=== PATIENT | female | born 1950 | race Caucasian/White ===

== ENCOUNTER 2020-01-18 08:15 | Outpatient (CLI) | payer OTHER, SELFPAY ==
--- NOTE | ~2020-01-18 | MM_ITS ---
EXAMINATION: MM screening armen BI w nidhi HISTORY: Screening TECHNIQUE: Craniocaudal and mediolateral oblique 3-D tomosynthesis images were obtained and synthetic 2-D images were generated. CAD analysis was submitted and interpreted. COMPARISON: Comparison to multiple prior studies sequentially, with oldest reviewed study dated 12/18. BREAST PARENCHYMAL COMPOSITION: There are scattered areas of fibroglandular density. FINDINGS: There is no evidence of suspicious mass, calcification, or architectural distortion to sugg est malignancy in either breast. There has been no suspicious interval change. IMPRESSION: 1. No mammographic evidence of malignancy. 2. Recommend routine screening mammography in one year. BI-RADS Category 1: Negative Reviewed, dictated and finalized at location A. YARD SUPERVISOR
== END 2020-01-18 08:16 | disposition home or self-care (01) ==
LOC: ANHIMG 08:20
PROVIDERS: PCP Emergency Medicine; Visit Provider Nurse Practitioner
DX: Z12.31 Encounter for screening mammogram for malignant neoplasm of breast (principal)
CPT/HCPCS: 77063; 77067

== ENCOUNTER 2021-01-27 16:03 | Outpatient (CLI) | payer OTHER, SELFPAY ==
--- NOTE | ~2021-01-27 | MM_ITS ---
EXAMINATION: MM screening armen BI w nidhi HISTORY: Screening mammogram TECHNIQUE: Craniocaudal and mediolateral oblique 3-D tomosynthesis images were obtained and synthetic 2-D images were generated. CAD analysis was submitted and interpreted. COMPARISON: 01/18/2020, 01/15/2019, 01/09/2018 bilateral screening mammogram examinations BREAST PARENCHYMAL COMPOSITION: There are scattered areas of fibroglandular density. FINDINGS: There are scattered bilateral benign calcifications. There is no evidence of suspicious mas s, calcification, or architectural distortion to suggest malignancy in either breast. There has been no suspicious interval change. IMPRESSION: 1. No mammographic evidence of malignancy. 2. Recommend routine screening mammography in one year. BI-RADS Category 2: Benign finding(s). Reviewed, dictated and finalized at location A. [employer]OR [employer] C[employer]ER SERVICE
== END 2021-01-27 16:04 | disposition home or self-care (01) ==
LOC: ANHIMG 16:04
PROVIDERS: PCP Emergency Medicine; Visit Provider Obstetrics & Gynecology Gynecology
DX: Z12.31 Encounter for screening mammogram for malignant neoplasm of breast (principal)
CPT/HCPCS: 77063; 77067

== ENCOUNTER → 2021-04-01 14:42 | Outpatient (CLI) | payer OTHER, SELFPAY ==
--- NOTE | ~2021-04-01 | DEXA_ITS ---
Bone Density Report Name: SEFERINO BE Age: 70 Sex: Female Ethnicity: White Date of : 1950 Indication: postmenopausal osteoporosis; monitoring treatment; parental hip fracture; Referring Provider: Brendon, Wanda Study: Bone densitometry was performed. Exam Date: April 01, 2021 Accession number: [id number] Bone Density: Region BMD T-score Z-score Classification AP Spine (L1-L4) 1.014 -0.3 1.9 Normal Femoral Neck (Left) 0.626 -2.0 -0.1 Osteopenia Total Hip (Left) 0.699 -2.0 -0.4 Osteopenia Femoral Neck (Right) 0.609 -2.2 -0.2 Osteopenia Total Hip (Right) 0.636 -2.5 -0.9 Osteoporosis Total Hip Mean 0.668 -2.3 -0.7 Osteopenia World Health Organization criteria for BMD impression classify patients as: Normal (T-score at or above -1.0), Osteopenia (T-score between -1.0 and -2.5), or Osteoporosis (T-score at or below -2.5). 10-year Fracture Risk: FRAX not reported because: Some T-score for Spine Total or Hip Total or Femoral Neck at or below -2.5 Treated for osteoporosis Previous Exams: Region Exam Age BMD T-score BMD Change BMD Change Date g/cm2 vs Baseline vs Previous AP Spine(L1-L4) 04/01/2021 70 1.014 -0.3 -0.035* 0.020 03/26/2019 68 0.994 -0.5 -0.055* 0.029* 02/14/2017 66 0.964 -0.8 -0.084* -0.036* 08/04/2014 63 1.001 -0.4 -0.048* -0.040* 01/28/2013 62 1.041 -0.1 -0.008 -0.025* 05/19/2008 57 1.066 0.2 0.017 0.050* 12/27/2006 56 1.016 -0.3 -0.033* -0.033* 12/26/2005 55 1.049 0.0 Total Hip(Left) 04/01/2021 70 0.699 -2.0 -0.238* -0.006 03/26/2019 68 0.705 -1.9 -0.232* -0.108* 02/14/2017 66 0.813 -1.1 -0.124* 0.084* 08/04/2014 63 0.730 -1.7 -0.208* -0.023 01/28/2013 62 0.753 -1.6 -0.185* -0.075* 05/19/2008 57 0.828 -0.9 -0.109* -0.056* 12/27/2006 56 0.884 -0.5 -0.053* -0.053* 12/26/2005 55 0.938 0.0 Total Hip(Right) 04/01/2021 70 0.636 -2.5 -0.153* 0.017 03/26/2019 68 0.619 -2.7 -0.170* -0.031* 02/14/2017 66 0.650 -2.4 -0.139* -0.109* 08/04/2014 63 0.758 -1.5 -0.030* -0.010 01/28/2013 62 0.769 -1.4 -0.020 -0.061* 05/19/2008 57 0.830 -0.9 0.042* -0.017 12/27/2006 56 0.847 -0.8 0.058* 0.058* 12/26/2005 55 0.788 -1.3
== END ==
PROVIDERS: PCP Emergency Medicine; Visit Provider Nurse Practitioner
DX: Z78.0 Asymptomatic menopausal state (principal); M85.89 Other specified disorders of bone density and structure, multiple sites; M81.0 Age-related osteoporosis without current pathological fracture
CPT/HCPCS: 77080

== ENCOUNTER 2021-08-27 11:00 | Inpatient (IN) | payer OTHER, SELFPAY ==
[2021-08-27] VITALS (8 sets, daily range): BP systolic 105–139; BP diastolic 52–76; PULSE 90–115; RESP 14–30; TEMP 36.2–36.8; O2SAT 96–100; BMI 19.5
--- NOTE | ~2021-08-27 | CT_ITS ---
EXAMINATION: CTA chest PE protocol DATE: 08/27/2021 14:58 INDICATION: Shortness of breath. Redness and swelling of left lower leg. TECHNIQUE: Computed tomography angiography (CTA) of the chest was performed with 100 mL Omnipaque-350 intravenous contrast timed to evaluate the pulmonary arteries. Coronal maximum intensity projection 3D-reconstructions were created by the technologist. Automated exposure control and iterative reconst ruction technique were employed. Exam dose: 163.74 mGy-cm total exam DLP. COMPARISON: None. FINDINGS: There are is extensive bilateral pulmonary embolism with bilateral upper lobe, middle lobe and bilateral lower lobe emboli. Saddle embolus on the right. There is atelectasis of right ventricular strain. Normal heart size. Trace pericardial fluid. No pleural effusion. No thoracic aortic aneurysm or dissection. There is aortic and coronary and great vessel calcificatio n. No hilar or mediastinal mass lesion or lymphadenopathy. Numerous small stones are noted in the dependent gallbladder. There is noted to terminate approximately 1.3 cm hypoattenuating lesion of the dome of the liver. Mil d to moderate bilateral hydronephrosis and/or parapelvic cysts are noted. The kidneys are only partia lly included. Normal morphology of the adrenal glands. No suspicious osteolytic or osteoblastic lesions are noted. IMPRESSION: Extensive bilateral pulmonary emboli with evidence of right ventricular strain Cholelithiasis Indeterminate 1.3 cm hypoattenuating lesion of the hepatic dome Reviewed, dictated and finalized at Location A. Reviewed, dictated and finalized at location A. IMPRESSION: Extensive bilateral pulmonary emboli with evidence of right ventri cular strain Cholelithiasis Indeterminate 1.3 cm hypoattenuating lesion of the hepatic dome
--- NOTE | ~2021-08-27 | XR_ITS ---
EXAMINATION: XR chest 2V DATE: 08/27/2021 12:57 INDICATION: Shortness of breath. Left leg swelling and redness. TECHNIQUE: Frontal and lateral views of the chest were obtained. COMPARISON: Chest 2 views 05/17/2007 FINDINGS: A calcified right lung nodule is consistent with old granulomatous disease. No pleural effu jhon or pneumothorax. The heart size is normal. IMPRESSION: 1. No acute cardiopulmonary disease. Reviewed, dictated and finalized at location A.
--- NOTE | ~2021-08-27 | US_ITS ---
EXAMINATION:US venous doppler LE LT INDICATION:Left leg swelling TECHNIQUE: Multiple grayscale, color flow and Doppler images of the left lower extremity deep venous systems were obtained and reviewed. COMPARISON:No prior studies for comparison. FINDINGS: There is extensive deep venous thrombosis throughout the left lower extremity veins involvi ng the femoral, popliteal, posterior tibial, peroneal and gastrocnemius veins. IMPRESSION: 1: Diffuse deep venous thrombosis throughout the left lower extremity veins. Reviewed, dictated and finalized at location B.
--- NOTE | ~2021-08-27 | MR_ITS ---
EXAMINATION: MR abdomen wo/w con DATE: 08/30/2021 16:58 INDICATION: Liver mass. TECHNIQUE: Magnetic resonance imaging (MRI) of the abdomen was performed without and with 10 mL Multi [place] intravenous contrast. COMPARISON: Chest CT 08/27/2021 FINDINGS: There are 2 cysts in the liver with the larger measuring 13 mm. There are gallstones in the gallbladd er, which is normal in size. The spleen is normal. There are multiple cystic lesions in the pancreas measuring up to 4 mm, some of which communicate with the main pancreatic duct. The adrenal glands are normal. There are cysts in the kidneys measuring up to 2.1 cm on the left. There are no dilated loop s of bowel. There are no pathologically enlarged lymph nodes. There is no free intraperitoneal fluid. IMPRESSION: 1. Benign cysts in the liver. 2. Cystic lesions in the pancreas measuring up to 4 mm. The differential diagnosis includes pseudocys t, intraductal papillary mucinous neoplasm (IPMN), mucinous cystic neoplasm (MCN), serous cystadenoma , and neuroendocrine tumor. Abdomen MRI without and with contrast is recommended in 2 years. 3. Cholelithiasis. No evidence of acute cholecystitis. Reviewed, dictated and finalized at location B. IMPRESSION: 1. Benign cysts in the liver. 2. Cystic lesions in the pancreas measuring up to 4 mm. The differential diagno sis includes pseudocyst, intraductal papillary mucinous neoplasm (IPMN), mucino us cystic neoplasm (MCN), serous cystadenoma, and neuroendocrine tumor. Abdomen MRI without and with contrast is recommended in 2 years. 3. Cholelithiasis. No evidence of acute cholecystitis.
[2021-08-27 11:38] LABS: Glucose Point of Care 234 mg/dl (65-105)
--- NOTE | 2021-08-27 12:48 | PC.NURSE ---
pt. has two pluse pulses in L lower extremity
--- NOTE | 2021-08-27 13:00 | ED.GENADULT ---
HPI - General Adult General Chief complaint: Recheck/Abnormal Lab/Rx Stated complaint: High blood sugar, L leg swollen Time Seen by Provider: 08/27/21 12:35 History of Present Illness HPI narrative: Patient is a 70-year-old female who presents ER with left lower extremity swelling. Noticed it worsening over the last 2 days. Reports she bumped her ankle on a door 1 week ago but she thought nothing of it. Small break in the skin. No erythema or warmth or drainage. No fevers or chills or sweats. No calf cramping. Denies chest pain. Patient does report she has been having exertional dyspnea over the last 3 days as well. No crushing chest pain. No pain with deep breath. No history of PE or DVT. Patient reports yesterday blood sugar was as high as 300 which is atypical for her. She was able to bring her sugar down by drinking water. Related Data Home Medications Medication Instructions Recorded Confirmed aspirin 81 mg tablet,delayed 81 mg PO DAILY 04/08/19 05/18/21 release cholecalciferol (vitamin D3) 50 2,000 unit PO DAILY 04/08/19 05/18/21 mcg (2,000 unit) capsule Allergies Allergy/AdvReac Type Severity Reaction Status Date / Time No Known Allergies Allergy Verified 08/17/21 11:21 Review of Systems Review of Systems: All systems reviewed & are unremarkable except as noted in HPI and below Constitutional: Constitutional: Denies chills, Reports fatigue, Denies fever(s) and Reports weakness ENT: Denies nasal congestion and Denies sore throat Cardiovascular: Cardiovascular: Denies chest pain, Denies rapid heart rate and Denies radiating jaw, neck or arm pain Respiratory: Respiratory: Denies cough, Reports dyspnea and Denies wheezing Gastrointestinal: Gastrointestinal: Denies abdominal pain, Denies nausea and Denies vomiting Musculoskeletal: Musculoskeletal: Denies arthralgias, Denies joint swelling and Denies muscle cramps Comments: Left lower extremity swelling Neurologic: Denies focal weakness and Denies numbness PMFSH Past Medical History Medical History (Updated 08/27/21 @ 17:06 by Cheo Ramesh MD) Dyslipidemia Hypertension Osteopenia of multiple sites Type 2 diabetes mellitus Vitamin D deficiency Surgical History Surgical History (Updated 08/27/21 @ 15:39 by Nat G. Gerling, PA-C) History of left breast biopsy Microcalcifications on mammogram. Breast biopsy benign, per patient report. History of toe surgery Repair of left 5th toe fracture. Family History Family History Mother Family history of diabetes mellitus in first degree relative Family history of cardiovascular disease Sibling Family history of cardiovascular disease Father Family history of lung cancer, Onset Age: 67 Social History Social History (Updated 08/27/21 @ 15:42 by Nat Martin PA-C) Social History: Surrogate decision maker: Felicitas Vargasan (daughter) or Sydney Hayes (granddaughter). Code status: Full code. Smoking status: Current every day smoker Alcohol intake: never Substance use: never Additional living arrangements comments: x 3 years. Granddaughter lives with her. Additional occupation/education comments: Works 3 days a week at [employer]. Exam Narrative: GENERAL: Well-appearing, well-nourished, and in no acute distress. HEAD: Normocephalic, atraumatic. EYES: PERRL and EOMI. CHEST: Clear to auscultation. No respiratory distress. HEART: Tachycardic and regular.. Normal peripheral pulses. ABDOMEN: Soft, nontender, nondistended. EXTREMITIES: Normal range of motion. Left lower extremity significantly enlarged compared to the right lower extremity and has some purplish discoloration. Normal dorsalis pedis and posterior tibial pulses in the left lower extremity. SKIN: Warm, dry, no rash. Small break in skin near the lateral malleolus of the ankle without tenderness or evidence of cellu
[2021-08-27 14:06] LABS: Basophils Absolute Auto 0.1 K/mm3 (0.0-0.1); Basophils Percent Auto 0.5 % (0.2-1.2); Eosinophils Absolute Auto 0.1 K/mm3 (0-0.3); Eosinophils Percent Auto 1.3 % (0-4.4); Hematocrit 37.5 % (37.0-47.0); Hemoglobin 11.8 g/dL (12.0-15.0); Immature Granulocyte Absolute 0.14 K/mm3 (0.00-0.031); Immature Granulocyte Percent A 1.3 % (0-0.5); Lymphocytes Absolute Auto 1.07 K/mm3 (0.9-3.2); Lymphocytes Percent Auto 9.7 % (18.3-44.2); Mean Corpuscular HGB Conc 31.5 g/dl (32-36); Mean Corpuscular Hemoglobin 33.7 pg (26-34); Mean Corpuscular Volume 107.1 fl (80-100); Mean Platelet Volume 12.9 fl (7.4-10.4); Neutrophils Absolute Auto 8.7 K/mm3 (1.3-6.7); Neutrophils Percent Auto 78.2 % (45.5-73.1); Platelet Count Result 170 k/mm3 (150-375); Red Cell Distribution Width 14.6 % (11.5-14.5); White Blood Count 11.1 K/mm3 (4.5-10.0)
[2021-08-27 14:14] LABS: INR 1.2; Prothrombin Time 14.7 Seconds (11.1-14.7)
[2021-08-27 14:15] LABS: Partial Thromboplastin Time 41.6 SECONDS (22.3-36.8)
[2021-08-27 14:17] LABS: Alanine Aminotransferase 10 U/L (6-35); Albumin Level 4.5 g/dL (3.5-5.1); Alkaline Phosphatase 84 U/L (38-126); Anion Gap 17 mmol/L (8-16); Aspartate Amino Transferase 13 U/L (14-36); Bilirubin,Total 0.9 mg/dL (0.2-1.3); Blood Urea Nitrogen 30 mg/dL (7-17); Calcium 9.6 mg/dL (8.4-10.2); Carbon Dioxide 14 mmol/L (22-30); Chloride 103 mmol/L (98-107); Estimated CRCL calculation 39 ml/min; Estimated Glomerular Filt Rate > 60; Glucose 261 mg/dL (65-110); Potassium 5.2 mmol/L (3.4-5.0); Sodium 134 mmol/L (137-145)
[2021-08-27] MEDS: HEPARIN SOD/D5W 100 UNITS/ML 25,000 UNITS/250 ML BAG 9 UNITS IV CONT (14:25)
[2021-08-27] MEDS: HEPARIN SODIUM 5,000 UNITS/ML VIAL 4000 UNITS IV PUSH (14:27)
[2021-08-27 14:40] LABS: NT Pro B Type Natriuretic Pept 5800 pg/mL (5-100); Troponin I 0.241 ng/mL (0.000-0.034)
--- NOTE | 2021-08-27 15:00 | PM.IMHP ---
H&P: HPI History of Present Illness Date/Time: 08/27/21 15:00 Chief Complaint: Leg swelling, dizziness, shortness of breath. Narrative: This is a very pleasant 70-year-old female smoker with type 2 diabetes and hyperlipidemia who presented to the emergency department from home for evaluation of leg swelling, dizziness, and shortness of breath. Her chronic medical conditions are well controlled and she is otherwise very healthy. She still works 3 days a week and is very active. Two days ago while leaving work she got a bit short of breath when walking to her car which is unusual for her. Since that time she has continued to experience dyspnea on exertion and yesterday she felt dizzy after walking up the basement stairs and in fact she fell when entering the kitchen from the basement stairs, luckily not injuring herself. Yesterday she also noticed that her left leg seemed to be swollen and this morning her granddaughter convinced her to come in for evaluation given increasing swelling in that leg. Venous Doppler ultrasound of the left leg showed an extensive DVT and a subsequent chest CTA showed extensive bilateral pulmonary embolism in all lobes with a subtle embolus on the right and some evidence of right ventricular strain. At the time my evaluation she appears in no respiratory distress and her vital signs are stable aside from tachycardia with a rate of around 113. SpO2 is currently 100% on room air. The patient was initially reluctant to stay in the hospital but after lengthy discussion she has decided that she is okay with admission. We did discuss the possibility of transfer to a tertiary care center for consultation with Interventional Radiology to see if she may be a candidate for thrombectomy or catheter guided tPA however she declined that at this time and she would prefer to stay here. She has no prior history of blood clots and she denies recent travel and surgery. In fact she is very active as detailed above. She has no known history of malignancy. She is up-to-date on her mammograms and colonoscopy. Her weight has remained stable; she has always been quite thin. Currently she has no complaints and denies syncope, headache, chest pain, pleuritic pain, palpitations, nausea, vomiting, sweats and numbness/paresthesias of the left leg. Review of Systems Review of Systems: Twelve systems were reviewed. No recent cold or flu symptoms. She is up-to-date on vaccinations and has not had any recent vaccinations. No history of cardiopulmonary disease. Appetite has been okay. No nausea, vomiting, or diarrhea. She has not noticed any lymph node swelling. No hematuria. No issues with constipation. Glucose is typically well controlled and she was apprised that her random glucose today was over 200. No blurry vision, polydipsia, or polyuria. Except as documented, all other systems were reviewed and are negative. [facility] Past Medical History Medical History Dyslipidemia Hypertension Osteopenia of multiple sites Type 2 diabetes mellitus Vitamin D deficiency Surgical History Surgical History History of left breast biopsy Microcalcifications on mammogram. Breast biopsy benign, per patient report. History of toe surgery Repair of left 5th toe fracture. Family History Family History (Updated 08/27/21 @ 20:22 by Nat Martin PA-C) Mother Family history of cardiovascular disease Family history of diabetes mellitus in first degree relative Hx of CABG Sibling Family history of cardiovascular disease Pulmonary embolism Father Family history of lung cancer, Onset Age: 67 Social History Social History Social History: Surrogate decision maker: Felicitas Ahmadi (daughter) or Sydney Hayes (granddaughter). Code status: Full code. Years smoked: 20 Smok
--- NOTE | 2021-08-27 15:33 | ECG_ITS ---
Measurements Intervals [place] Rate: 110 P: 63 OR: 148 QRS: 72 QRSD: 81 T: 62 QT: 315 QTc: 427 Interpretive Statements SINUS TACHYCARDIA OTHERWISE NORMAL EKG NO PREVIOUS ECG AVAILABLE FOR COMPARISON Electronically Signed On 08-28-2021 13:42:26 CDT by Ramon Glass M.D.
[2021-08-27 17:12] LABS: Influenza A QL RT-PCR Negative (Negative); Influenza B QL RT-PCR Negative (Negative); SARS-CoV-2 RNA PCR Negative
--- NOTE | 2021-08-27 18:13 | ADMGEN ---
This patient, Dara Hayes, was admitted to IMU Room 206-01 at 1810. Patient/family oriented to hospital policies and general routines including ID bracelet, bed and alarms, visiting hours, pain management, procedures, bathroom and other care routines, personal items, smoking policy, room service/diet, and visiting hours. Information on how to activate the Rapid Response Team has been discussed. Patient/Family are encouraged to report perceived risks to care and to ask questions if they do not understand what they are told or what they should do.
--- NOTE | 2021-08-27 18:15 | PDONCCN ---
HPI - Date of Consult Date/Time: 08/27/21 18:15 Requesting Physician: Gregorio Nascimento MD Primary Care Provider: Vipin Gutierrez MD - Consult Narrative Reason for consult: Extensive bilateral pulmonary embolism and DVT Narrative: Dara Hayes is a 70 year old female This is a pleasant 70-year-old female with history of hypertension type 2 diabetes and dyslipidemia developed some shortness of breath 2 days ago while walking to the parking lot. She developed left lower extremity swelling and pain yesterday. She came into the ER and CTA chest was done that showed extensive bilateral pulmonary embolism with evidence of right ventricular strain along with indeterminate 1.3 cm hypoattenuating lesion of the hepatic dome. Doppler studies of the left lower extremity shows DVT throughout the left lower extremity veins. She denies any provoking factors including recent injury trauma and surgery. She denies any previous history of thromboembolic events and malignancy. She denies any melena hematochezia and weight loss. Denies any abdominal pain. She smokes but rarely. Denies any history of drinking alcohol. Review of Systems - Review of Systems All systems reviewed & are unremarkable except as noted in HPI and bel - Neurologic Reports weakness, Denies focal weakness, Denies numbness PMFSH Medical History: Medical History (Last Updated 08/27/21 @ 15:39 by Nat Martin PA-C) Dyslipidemia Hypertension Osteopenia of multiple sites Type 2 diabetes mellitus Vitamin D deficiency Surgical History: Surgical History (Last Updated 08/27/21 @ 15:39 by Nat Martin PA-C) History of left breast biopsy Microcalcifications on mammogram. Breast biopsy benign, per patient report. History of toe surgery Repair of left 5th toe fracture. Family History: Family History (Last Reviewed 08/27/21 @ 15:39 by Nat Martin PA-C) Mother Family history of diabetes mellitus in first degree relative Family history of cardiovascular disease Sibling Family history of cardiovascular disease Father Family history of lung cancer, Onset Age: 67 - Social History Social History: Social History (Last Updated 08/27/21 @ 15:42 by Nat Martin PA-C) Alcohol Use: Alcohol intake: never Substance Use: Substance use: never Smoking Status: Smoking status: Current every day smoker Meds Home Medications Medication Instructions Recorded Confirmed Type alendronate 70 mg tablet (Fosamax) 70 mg PO .COMPLEX #4 tabs 03/06/19 05/18/21 Rx aspirin 81 mg tablet,delayed 81 mg PO DAILY 04/08/19 05/18/21 History release cholecalciferol (vitamin D3) 50 2,000 unit PO DAILY 04/08/19 05/18/21 History mcg (2,000 unit) capsule glyburide 5 mg tablet See Rx Instructions .Route 08/28/20 05/18/21 Rx .COMPLEX #360 tabs simvastatin 10 mg tablet See Rx Instructions .Route 08/28/20 05/18/21 Rx .COMPLEX #90 tabs blood sugar diagnostic (Contour #300 ea 01/01/21 05/18/21 Rx Next Test Strips) dapagliflozin 10 mg tablet 10 mg PO DAILY #90 tabs 06/30/21 Rx (Farxiga) metformin 1,000 mg tablet See Rx Instructions .Route 07/20/21 Rx .COMPLEX #180 tabs semaglutide 7 mg tablet (Rybelsus) See Rx Instructions .Route 08/06/21 Rx .COMPLEX #30 tabs Allergies Allergy/AdvReac Type Severity Reaction Status Date / Time No Known Allergies Allergy Verified 08/17/21 11:21 Results - Labs CBC & Chem 7: 08/27/21 13:53 08/27/21 13:53 Labs: Short CBC 08/27/21 Range/Units 13:53 WBC 11.1 H (4.5-10.0) K/mm3 Hgb 11.8 L (12.0-15.0) g/dL Hct 37.5 (37.0-47.0) % Plt Count 170 (150-375) k/mm3 BMP 08/27/21 13:53 Sodium 134 L Potassium 5.2 H Chloride 103 Carbon Dioxide 14 L BUN 30 H Creatinine 0.90 Glucose 261 H Calcium 9.6 Cardiac Enzymes 08/27/21 Range/Units 13:53 Troponin I 0.241 H* (0.000-0.034) ng
[2021-08-27 18:36] LABS: Glucose Point of Care 200 mg/dl (65-105)
[2021-08-27 20:55] LABS: Hemoglobin A1C 7.8 % (<5.7)
[2021-08-27 21:03] LABS: Lactic Acid Reflex 2.5 mmol/L (0.7-2.0)
[2021-08-27 21:04] LABS: Anion Gap 12 mmol/L (8-16); Blood Urea Nitrogen 36 mg/dL (7-17); Calcium 10.2 mg/dL (8.4-10.2); Carbon Dioxide 20 mmol/L (22-30); Chloride 99 mmol/L (98-107); Estimated CRCL calculation 45 ml/min; Estimated Glomerular Filt Rate > 60; Glucose 245 mg/dL (65-110); Magnesium 1.9 mg/dL (1.6-2.3); Potassium 4.9 mmol/L (3.4-5.0); Sodium 131 mmol/L (137-145)
[2021-08-27 21:15] LABS: Partial Thromboplastin Time 87.1 SECONDS (22.3-36.8)
[2021-08-27] MEDS: SIMVASTATIN 10 MG TABLET PO (21:25)
[2021-08-27 21:27] LABS: Carcinoembryonic Antigen 0.7 ng/mL (0.0-3.0)
[2021-08-27 22:07] LABS: Glucose Point of Care 209 mg/dl (65-105)
[2021-08-27 23:44] LABS: Reflex Lactic Acid Yes or No Add Lactic
[2021-08-28] VITALS (15 sets, daily range): BP systolic 106–135; BP diastolic 42–58; PULSE 93–117; RESP 16–22; TEMP 36.4–37.2; O2SAT 94–98
[2021-08-28 01:01] LABS: Lactic Acid 0.9 mmol/L (0.7-2.0)
[2021-08-28 01:20] LABS: Troponin I 0.164 ng/mL (0.000-0.034)
[2021-08-28 03:04] LABS: Basophils Absolute Auto 0.1 K/mm3 (0.0-0.1); Basophils Percent Auto 0.8 % (0.2-1.2); Eosinophils Absolute Auto 0.5 K/mm3 (0-0.3); Eosinophils Percent Auto 6.3 % (0-4.4); Hematocrit 33.4 % (37.0-47.0); Hemoglobin 10.8 g/dL (12.0-15.0); Immature Granulocyte Absolute 0.07 K/mm3 (0.00-0.031); Immature Granulocyte Percent A 0.8 % (0-0.5); Lymphocytes Absolute Auto 1.23 K/mm3 (0.9-3.2); Lymphocytes Percent Auto 14.6 % (18.3-44.2); Mean Corpuscular HGB Conc 32.3 g/dl (32-36); Mean Corpuscular Hemoglobin 33.8 pg (26-34); Mean Corpuscular Volume 104.4 fl (80-100); Mean Platelet Volume 12.5 fl (7.4-10.4); Monocytes Absolute Auto 0.9 K/mm3 (0.1-0.6); Monocytes Percent Auto 10.5 % (2.6-8.5); Neutrophils Absolute Auto 5.6 K/mm3 (1.3-6.7); Platelet Count Result 164 k/mm3 (150-375); Red Cell Distribution Width 14.5 % (11.5-14.5); White Blood Count 8.4 K/mm3 (4.5-10.0)
[2021-08-28 03:22] LABS: Alanine Aminotransferase 8 U/L (6-35); Albumin Level 4.1 g/dL (3.5-5.1); Alkaline Phosphatase 77 U/L (38-126); Anion Gap 10 mmol/L (8-16); Aspartate Amino Transferase 13 U/L (14-36); Bilirubin,Total 0.6 mg/dL (0.2-1.3); Blood Urea Nitrogen 34 mg/dL (7-17); Calcium 9.1 mg/dL (8.4-10.2); Carbon Dioxide 20 mmol/L (22-30); Chloride 104 mmol/L (98-107); Estimated CRCL calculation 51 ml/min; Estimated Glomerular Filt Rate > 60; Glucose 205 mg/dL (65-110); Sodium 134 mmol/L (137-145)
[2021-08-28 03:27] LABS: Partial Thromboplastin Time 85.1 SECONDS (22.3-36.8)
[2021-08-28 04:28] LABS: Folic Acid 16.1 ng/mL (2.76->20)
[2021-08-28 04:55] LABS: Iron 62 ug/dL (37-170)
[2021-08-28 05:05] LABS: Percent Iron Saturation 18 % (20-50)
[2021-08-28 06:14] LABS: Free T4 Free Thyroxine Reflex 1.68 ng/dL (0.78-2.19)
[2021-08-28 07:08] LABS: Total Triiodothyronine (T3) 1.09 NG/ML (0.97-1.69)
[2021-08-28 07:54] LABS: Glucose Point of Care 207 mg/dl (65-105)
[2021-08-28] MEDS: INSULIN ASPART (*BKC) 100 UNITS/ML SUB-Q ×2 (09:11→12:27)
[2021-08-28] MEDS: glyBURIDE 5 MG TABLET 10 MG PO ×2 (09:20→17:32)
[2021-08-28] MEDS: CHOLECALCIFEROL 1,000 UNITS TABLET 2000 UNITS PO (09:43)
[2021-08-28] MEDS: EMPAGLIFLOZIN 25 MG TABLET PO (09:43)
[2021-08-28] MEDS: ASPIRIN 81 MG ENTERIC TABLET PO (09:44)
[2021-08-28 12:02] LABS: Glucose Point of Care 249 mg/dl (65-105)
--- NOTE | 2021-08-28 15:01 | PM.IMPN ---
Progress Note: A&P Assessment and Plan (1) Bilateral pulmonary embolism: Code(s): I26.99 - Other pulmonary embolism without acute cor pulmonale Status: Acute Assessment and Plan: CT shows extensive bilateral pulmonary emboli with evidence of right ventricular strain. Seemingly unprovoked and concerning for possible underlying malignancy (small mass noted on dome of liver). Dr. Pace has been consulted and his input is appreciated. At this time she has been started on a heparin drip and will be monitored closely in IMU. She will be on bed rest for now. Echocardiogram has been ordered for a.m.. As detailed in HPI, the patient declines transfer to tertiary care facility for IR consultation and with her stable vital signs (aside from mild tachycardia) I think this is reasonable. 08/28/2021 interval history 70-year-old female presented to emergency department with complaint of exertional shortness of breath patient is found to have extensive DVT and pulmonary emboli this is unprovoked as patient is not immobilize and there are no risk factors for blood clots, currently patient is being treated with heparin, however there is a concerning lesion in the liver and needs further evaluation with MRI currently patient is on heparin drip and will switch the patient on to oral anticoagulation possibly Monday and do the MRI to further evaluate, and had a cardiac echo has a patient LV function with right heart strain and there is concern patient may have thrombosed and right ventricle patient has been anticoagulated, patient may need SHIVANI to further evaluate will consult health services administrator. (2) Deep vein thrombosis of left lower limb: Code(s): I82.402 - Acute embolism and thrombosis of unspecified deep veins of left lower extremity Status: Acute Assessment and Plan: Extensive left leg DVT noted on ultrasound. Plan is as detailed above. (3) Elevated troponin: Code(s): R77.8 - Other specified abnormalities of plasma proteins Status: Acute Assessment and Plan: Corroborates with evidence of right ventricular heart strain on CT. Trend troponins to peak. Echocardiogram ordered for a.m.. (4) Type 2 diabetes mellitus: Code(s): E11.9 - Type 2 diabetes mellitus without complications Status: Acute Assessment and Plan: Hold metformin as she received IV contrast. Resume other oral diabetes medications. Initiate sliding scale insulin, Accu-Cheks, and hypoglycemic protocol. Check A1c. (5) Dyslipidemia: Code(s): E78.5 - Hyperlipidemia, unspecified Status: Acute Assessment and Plan: Continue statin; LFTs within normal limits. Subjective Date/time seen: 08/28/21 15:01 Interval history: HPI-This is a very pleasant 70-year-old female smoker with type 2 diabetes and hyperlipidemia who presented to the emergency department from home for evaluation of leg swelling, dizziness, and shortness of breath. Her chronic medical conditions are well controlled and she is otherwise very healthy.? She still works 3 days a week and is very active. Two days ago while leaving work she got a bit short of breath when walking to her car which is unusual for her. Since that time she has continued to experience dyspnea on exertion and yesterday she felt dizzy after walking up the basement stairs and in fact she fell when entering the kitchen from the basement stairs, luckily not injuring herself. Yesterday she also noticed that her left leg seemed to be swollen and this morning her granddaughter convinced her to come in for evaluation given increasing swelling in that leg. Venous Doppler ultrasound of the left leg showed an extensive DVT and a subsequent chest CTA showed extensive bilateral pulmonary embolism in all lobes with a subtle embolus on the right and some evidence of right ventricular strain. At the time my evaluation she appears in no respiratory distress and her vital signs are stable aside f
--- NOTE | 2021-08-28 15:33 | ECHO_ITS ---
Patient Info Name: Dara Hayes Age: 70 years : 1950 Gender: Female Ht: 64 in Wt: 113 lbs BSA: 1.52 m2 HR: 102 bpm BP: 100 / 52 mmHg Heart Rhythm: Sinus Rhythm Technical Quality: Good Exam Date: 08/28/2021 10:26 AM Exam Location: [facility] Pulmonary Patient Status: Inpatient Admit Date: 08/27/2021 Staff Ordering Physician: Nat Martin PA-C Photo Offset Printer: Polly Candelaria RDCS Attending Provider: Gregorio Nascimento MD Referring Physician: Mario ARNOLD; Exam Type: CA echo doppler color flow Study Info Indications I26.09 - Other pulmonary embolism with acute cor pulmonale Complete two-dimensional, color flow and Doppler transthoracic echocardiogram is performed. Summary 1. Complete two-dimensional, color flow and Doppler transthoracic echocardiogram is performed. 2. Left ventricular chamber dimension is normal. 3. Left ventricular systolic function is normal, estimated at 60-65%. 4. There is mildly increased left ventricular wall thickness. 5. The left ventricular diastolic function is grade I diastolic dysfunction. 6. Right ventricular chamber dimension is moderately enlarged. 7. Right ventricular systolic function is reduced. 8. Prominent right ventricular trabeculations are visualized. Cannot exclude thrombus within the trabeculations. 9. There is mild tricuspid valve regurgitation. 10. There is mild pulmonic regurgitation. Left Ventricle Left ventricular chamber dimension is normal. Left ventricular systolic function is normal, estimated at 60-65%. There is mildly increased left ventricular wall thickness. The left ventricular diastolic function is grade I diastolic dysfunction. Right Ventricle Right ventricular chamber dimension is moderately enlarged. Right ventricular systolic function is reduced. Prominent right ventricular trabeculations are visualized. Cannot exclude thrombus within the trabeculations. Left Atria Left atrial chamber dimension is normal. Right Atria Right atrial chamber dimension is normal. Atrial Septum Intact interatrial septum visualized by color flow imaging. Aortic Valve The aortic valve is trileaflet. There is mild aortic valve sclerosis. There is no aortic valve stenosis. There is trace aortic valve regurgitation. Pulmonic Valve The pulmonic valve is normal. There is no pulmonic valve stenosis. There is mild pulmonic regurgitation. Mitral Valve The mitral valve has normal leaflets. There is no mitral valve stenosis. There is trace mitral valve regurgitation. Tricuspid Valve The tricuspid valve leaflets are normal. There is no significant tricuspid valve stenosis. There is mild tricuspid valve regurgitation. No pulmonary hypertension, estimated pulmonary arterial systolic pressure is 24 mmHg. Pericardium/Pleural The pericardium appears normal. There is small pericardial effusion. Inferior Vena Cava Normal inferior vena cava with >50% collapse upon inspiration consistent with normal right atrial pressure, 5 mmHg. Aorta The aortic root size at the sinus of Valsalva is normal. The prox ascending aorta size is normal. Left Ventricular Outflow Tract Name Value Normal LVOT 2D LVOT Diameter 1.9 cm
[2021-08-28] MEDS: HEPARIN SOD/D5W 100 UNITS/ML 25,000 UNITS/250 ML BAG 9 UNITS IV CONT (15:56)
[2021-08-28 17:24] LABS: Glucose Point of Care 171 mg/dl (65-105)
[2021-08-28 20:56] LABS: Glucose Point of Care 249 mg/dl (65-105)
[2021-08-28] MEDS: SIMVASTATIN 10 MG TABLET PO (21:10)
[2021-08-28] MEDS: HYDROcodone/acetaminophen (*CRX) 5-325 MG TABLET 1 TAB PO (21:12)
[2021-08-29] VITALS (13 sets, daily range): BP systolic 103–124; BP diastolic 47–73; PULSE 93–115; RESP 16–24; TEMP 36.5–37.2; O2SAT 93–98
[2021-08-29 05:29] LABS: Partial Thromboplastin Time 71.4 SECONDS (22.3-36.8)
[2021-08-29 08:05] LABS: Glucose Point of Care 210 mg/dl (65-105)
[2021-08-29] MEDS: ASPIRIN 81 MG ENTERIC TABLET PO (09:18)
[2021-08-29] MEDS: CHOLECALCIFEROL 1,000 UNITS TABLET 2000 UNITS PO (09:18)
[2021-08-29] MEDS: EMPAGLIFLOZIN 25 MG TABLET PO (09:18)
[2021-08-29] MEDS: glyBURIDE 5 MG TABLET 10 MG PO ×2 (09:18→16:25)
[2021-08-29] MEDS: INSULIN ASPART (*BKC) 100 UNITS/ML SUB-Q ×2 (09:20→13:09)
[2021-08-29 12:43] LABS: Glucose Point of Care 205 mg/dl (65-105)
--- NOTE | 2021-08-29 15:25 | PM.IMPN ---
Progress Note: A&P Assessment and Plan (1) Bilateral pulmonary embolism: Code(s): I26.99 - Other pulmonary embolism without acute cor pulmonale Status: Acute Assessment and Plan: CT shows extensive bilateral pulmonary emboli with evidence of right ventricular strain. Seemingly unprovoked and concerning for possible underlying malignancy (small mass noted on dome of liver). Dr. Pace has been consulted and his input is appreciated. At this time she has been started on a heparin drip and will be monitored closely in IMU. She will be on bed rest for now. Echocardiogram has been ordered for a.m.. As detailed in HPI, the patient declines transfer to tertiary care facility for IR consultation and with her stable vital signs (aside from mild tachycardia) I think this is reasonable. 08/28/2021 interval history 70-year-old female presented to emergency department with complaint of exertional shortness of breath patient is found to have extensive DVT and pulmonary emboli this is unprovoked as patient is not immobilize and there are no risk factors for blood clots, currently patient is being treated with heparin, however there is a concerning lesion in the liver and needs further evaluation with MRI currently patient is on heparin drip and will switch the patient on to oral anticoagulation possibly Monday and do the MRI to further evaluate, and had a cardiac echo has a patient LV function with right heart strain and there is concern patient may have thrombosed and right ventricle patient has been anticoagulated, patient may need SHIVANI to further evaluate will consult motel operator. 08/29/2021 interval history 70-year-old female presented to emergency department with complaint of exertional shortness of breath patient is found to have extensive DVT and pulmonary emboli this is unprovoked as patient is not immobilize and there are no risk factors for blood clots, currently patient is being treated with heparin, however there is a concerning lesion in the liver and needs further evaluation with MRI currently patient is on heparin drip and will switch the patient on to oral anticoagulation possibly Monday and do the MRI to further evaluate, and had a cardiac echo has a patient LV function is is preserved, with right heart strain and there is concern patient may have thrombosed in right ventricle patient has been anticoagulated, patient may need SHIVANI to further evaluate will consult motel operator. (2) Deep vein thrombosis of left lower limb: Code(s): I82.402 - Acute embolism and thrombosis of unspecified deep veins of left lower extremity Status: Acute Assessment and Plan: Extensive left leg DVT noted on ultrasound. Plan is as detailed above. (3) Elevated troponin: Code(s): R77.8 - Other specified abnormalities of plasma proteins Status: Acute Assessment and Plan: Corroborates with evidence of right ventricular heart strain on CT. Trend troponins to peak. Echocardiogram ordered for a.m.. (4) Type 2 diabetes mellitus: Code(s): E11.9 - Type 2 diabetes mellitus without complications Status: Acute Assessment and Plan: Hold metformin as she received IV contrast. Resume other oral diabetes medications. Initiate sliding scale insulin, Accu-Cheks, and hypoglycemic protocol. Check A1c. (5) Dyslipidemia: Code(s): E78.5 - Hyperlipidemia, unspecified Status: Acute Assessment and Plan: Continue statin; LFTs within normal limits. Subjective Date/time seen: 08/29/21 15:25 Interval history: HPI-This is a very pleasant 70-year-old female smoker with type 2 diabetes and hyperlipidemia who presented to the emergency department from home for evaluation of leg swelling, dizziness, and shortness of breath. Her chronic medical conditions are well controlled and she is otherwise very healthy.? She still works 3 days a week and is very active. Two days ago while leaving work s
[2021-08-29 16:36] LABS: Glucose Point of Care 179 mg/dl (65-105)
[2021-08-29 20:54] LABS: Glucose Point of Care 165 mg/dl (65-105)
[2021-08-29] MEDS: SIMVASTATIN 10 MG TABLET PO (20:57)
[2021-08-29] MEDS: HEPARIN SOD/D5W 100 UNITS/ML 25,000 UNITS/250 ML BAG 9 UNITS IV CONT (23:30)
[2021-08-30] VITALS (14 sets, daily range): BP systolic 104–120; BP diastolic 50–80; PULSE 75–104; RESP 15–22; TEMP 36.4–36.9; O2SAT 94–99
[2021-08-30 05:20] LABS: Basophils Absolute Auto 0.1 K/mm3 (0.0-0.1); Basophils Percent Auto 0.8 % (0.2-1.2); Eosinophils Absolute Auto 0.3 K/mm3 (0-0.3); Eosinophils Percent Auto 3.4 % (0-4.4); Hemoglobin 10.3 g/dL (12.0-15.0); Immature Granulocyte Absolute 0.05 K/mm3 (0.00-0.031); Immature Granulocyte Percent A 0.7 % (0-0.5); Immature Platelet Fraction Pct 16.7 % (0.9-11.2); Lymphocytes Absolute Auto 0.93 K/mm3 (0.9-3.2); Lymphocytes Percent Auto 12.7 % (18.3-44.2); Mean Corpuscular HGB Conc 33.2 g/dl (32-36); Mean Corpuscular Hemoglobin 34.4 pg (26-34); Mean Corpuscular Volume 103.7 fl (80-100); Mean Platelet Volume 12.9 fl (7.4-10.4); Monocytes Absolute Auto 0.8 K/mm3 (0.1-0.6); Monocytes Percent Auto 10.9 % (2.6-8.5); Neutrophils Absolute Auto 5.2 K/mm3 (1.3-6.7); Neutrophils Percent Auto 71.5 % (45.5-73.1); Platelet Count Result 181 k/mm3 (150-375); Red Blood Count 2.99 M/mm3 (4.2-5.4); Red Cell Distribution Width 14.1 % (11.5-14.5); White Blood Count 7.3 K/mm3 (4.5-10.0)
[2021-08-30 05:37] LABS: Partial Thromboplastin Time 63.4 SECONDS (22.3-36.8)
[2021-08-30 05:41] LABS: Alanine Aminotransferase 8 U/L (6-35); Albumin Level 3.7 g/dL (3.5-5.1); Alkaline Phosphatase 80 U/L (38-126); Anion Gap 8 mmol/L (8-16); Aspartate Amino Transferase 14 U/L (14-36); Bilirubin,Total 0.7 mg/dL (0.2-1.3); Blood Urea Nitrogen 19 mg/dL (7-17); Calcium 8.8 mg/dL (8.4-10.2); Carbon Dioxide 22 mmol/L (22-30); Chloride 105 mmol/L (98-107); Estimated CRCL calculation 58 ml/min; Estimated Glomerular Filt Rate > 60; Glucose 145 mg/dL (65-110); Potassium 3.4 mmol/L (3.4-5.0); Sodium 135 mmol/L (137-145)
[2021-08-30 08:33] LABS: Glucose Point of Care 148 mg/dl (65-105)
[2021-08-30] MEDS: HEPARIN SODIUM 5,000 UNITS/ML VIAL 2000 UNITS IV PUSH (08:55)
[2021-08-30] MEDS: EMPAGLIFLOZIN 25 MG TABLET PO (09:06)
[2021-08-30] MEDS: glyBURIDE 5 MG TABLET 10 MG PO ×2 (09:06→16:11)
[2021-08-30] MEDS: ASPIRIN 81 MG ENTERIC TABLET PO (09:06)
[2021-08-30] MEDS: CHOLECALCIFEROL 1,000 UNITS TABLET 2000 UNITS PO (09:06)
--- NOTE | 2021-08-30 10:49 | PM.CNCAR ---
Assessment and Plan Assessment and plan (1) Bilateral pulmonary embolism: Code(s): I26.99 - Other pulmonary embolism without acute cor pulmonale Status: Acute Assessment and Plan: Continue anticoagulation (2) Elevated troponin: Code(s): R77.8 - Other specified abnormalities of plasma proteins Status: Acute Assessment and Plan: This is evidence of RV strain (3) Deep vein thrombosis of left lower limb: Code(s): I82.402 - Acute embolism and thrombosis of unspecified deep veins of left lower extremity Status: Acute Assessment and Plan: Extensive and on anticoagulation: Improving per patient (4) Hypertension: Code(s): I10 - Essential (primary) hypertension Status: Acute Assessment and Plan: At goal (5) Right ventricular enlargement: Code(s): I51.7 - Cardiomegaly Status: Acute Assessment and Plan: Patient has RV enlargement and hypokinesis consistent with RV strain related to bilateral pulmonary emboli. Given elevated troponins, I agree with previous consideration of thrombectomy or tPA but patient had previously declined. At this point, simply recommend continue anticoagulation. I do not think a SHIVANI to clarify if there is RV thrombus would be of any significance at this point. History of Present Illness History of Present Illness Consult date/time: 08/30/21 10:49 Reason For Visit: Pulmonary embolism/DVT Narrative: Date of service 08/30/2021 Reason consultation: Abnormal echocardiogram? Need for SHIVANI Requesting provider: Dr. Nascimento History: Patient is a 70-year-old female has diabetes, hyperlipidemia presented to the hospital because of leg swelling dizziness shortness of breath. She states that she woke up Link morning with significant swelling in her left leg. She did notice some shortness of breath walking to and from the car couple of days before that. She also felt some dizziness she was having continued shortness of breath. She had fallen when entering into the kitchen from the basement stairs. She came to the hospital for further workup and evaluation where she was found have an extensive DVT in the left leg as well as bilateral pulmonary emboli with evidence of right heart strain. Echocardiogram was performed personally read showing evidence of RV strain including RV dilatation, RV hypokinesis and hyper trabeculation with possibility of having some thrombus within the trabeculations of cells. This has prompted Cardiology request for possibility of SHIVANI. Reportedly the patient declined consideration of thrombectomy or catheter guided tPA at presentation according to the H&P. Review of Systems Review of Systems: Awake alert oriented appears stated age All systems reviewed & are unremarkable except as noted in HPI and below Constitutional: Constitutional: Denies body ache(s) Eyes: Eyes: Denies blurry vision ENT: Reports Normal hearing present Cardiovascular: Cardiovascular: Denies chest pain, Reports pedal edema and Reports leg edema Respiratory: Respiratory: Reports dyspnea Gastrointestinal: Gastrointestinal: Denies abdominal pain Genitourinary: Genitourinary: Denies hematuria Musculoskeletal: Musculoskeletal: Denies back pain Integumentary/Breasts: Skin/Breast: Denies breast pain Neurologic: Denies Abnormal speech present Psychiatric: Psychiatric: Denies behavioral changes and Denies confusion Endocrine: Endocrine: Denies excessive sweating Hematologic/Lymphatic: Hematologic/Lymphatic: Denies easy bleeding Allergic/Immunologic: Allergic/Immunologic: Denies GI upset with certain foods PMFSH Past Medical History Medical History Dyslipidemia Hypertension Osteopenia of multiple sites Type 2 diabetes mellitus Vitamin D deficiency Surgical History Surgical History History of left br
[2021-08-30 11:29] LABS: Glucose Point of Care 130 mg/dl (65-105)
[2021-08-30 15:25] LABS: Partial Thromboplastin Time 41.8 SECONDS (22.3-36.8)
[2021-08-30 16:11] LABS: Glucose Point of Care 326 mg/dl (65-105)
[2021-08-30 16:11] LABS: Glucose Point of Care 296 mg/dl (65-105)
[2021-08-30] MEDS: APIXABAN 5 MG TABLET 10 MG PO (16:11)
[2021-08-30] MEDS: INSULIN ASPART (*BKC) 100 UNITS/ML SUB-Q (16:14)
--- NOTE | 2021-08-30 17:33 | PM.IMPN ---
Progress Note: A&P Assessment and Plan (1) Bilateral pulmonary embolism: Code(s): I26.99 - Other pulmonary embolism without acute cor pulmonale Status: Acute Assessment and Plan: CT shows extensive bilateral pulmonary emboli with evidence of right ventricular strain. Seemingly unprovoked and concerning for possible underlying malignancy (small mass noted on dome of liver). Dr. Pace has been consulted and his input is appreciated. At this time she has been started on a heparin drip and will be monitored closely in IMU. She will be on bed rest for now. Echocardiogram has been ordered for a.m.. As detailed in HPI, the patient declines transfer to tertiary care facility for IR consultation and with her stable vital signs (aside from mild tachycardia) I think this is reasonable. 08/28/2021 interval history 70-year-old female presented to emergency department with complaint of exertional shortness of breath patient is found to have extensive DVT and pulmonary emboli this is unprovoked as patient is not immobilize and there are no risk factors for blood clots, currently patient is being treated with heparin, however there is a concerning lesion in the liver and needs further evaluation with MRI currently patient is on heparin drip and will switch the patient on to oral anticoagulation possibly Monday and do the MRI to further evaluate, and had a cardiac echo has a patient LV function with right heart strain and there is concern patient may have thrombosed and right ventricle patient has been anticoagulated, patient may need SHIVANI to further evaluate will consult note taker. 08/29/2021 interval history 70-year-old female presented to emergency department with complaint of exertional shortness of breath patient is found to have extensive DVT and pulmonary emboli this is unprovoked as patient is not immobilize and there are no risk factors for blood clots, currently patient is being treated with heparin, however there is a concerning lesion in the liver and needs further evaluation with MRI currently patient is on heparin drip and will switch the patient on to oral anticoagulation possibly Monday and do the MRI to further evaluate, and had a cardiac echo has a patient LV function is is preserved, with right heart strain and there is concern patient may have thrombosed in right ventricle patient has been anticoagulated, patient may need SHIVANI to further evaluate will consult note taker. 08/30/2021 interval history 70-year-old female presented to emergency department with complaint of exertional shortness of breath patient is found to have extensive DVT and pulmonary emboli this is unprovoked as patient is not immobilize and there are no risk factors for blood clots, currently patient is being treated with heparin, however there is a concerning lesion in the liver and needs further evaluation with MRI currently patient is on heparin drip and today will switch the patient on to oral anticoagulation Eliquis,and do the MRI to further evaluate liver lesion, and had a cardiac echo has a patient LV function is preserved, with right heart strain and there is concern patient may have thrombosed in right ventricle patient has been anticoagulated, today patient was seen by Cardiology does not suspect true thrombosis and does not need SHIVANI, as patient is currently anticoagulated (2) Deep vein thrombosis of left lower limb: Code(s): I82.402 - Acute embolism and thrombosis of unspecified deep veins of left lower extremity Status: Acute Assessment and Plan: Extensive left leg DVT noted on ultrasound. Plan is as detailed above. (3) Elevated troponin: Code(s): R77.8 - Other specified abnormalities of plasma proteins Status: Acute Assessment and Plan: Corroborates with evidence of right ventricular heart strain on CT. Trend troponins to peak. Echocardiogram ordered for a.m.. (4) Type 2 diabetes mellitus: C
[2021-08-30 19:55] LABS: Glucose Point of Care 269 mg/dl (65-105)
[2021-08-30] MEDS: SIMVASTATIN 10 MG TABLET PO (20:36)
[2021-08-31] VITALS (7 sets, daily range): BP systolic 104–114; BP diastolic 50; PULSE 80–92; RESP 16–18; TEMP 36.3–36.6; O2SAT 93–98
[2021-08-31 05:06] LABS: Basophils Absolute Auto 0.1 K/mm3 (0.0-0.1); Basophils Percent Auto 0.7 % (0.2-1.2); Eosinophils Absolute Auto 0.3 K/mm3 (0-0.3); Eosinophils Percent Auto 3.8 % (0-4.4); Hematocrit 28.9 % (37.0-47.0); Hemoglobin 9.6 g/dL (12.0-15.0); Immature Granulocyte Percent A 1.2 % (0-0.5); Lymphocytes Absolute Auto 0.87 K/mm3 (0.9-3.2); Lymphocytes Percent Auto 10.6 % (18.3-44.2); Mean Corpuscular HGB Conc 33.2 g/dl (32-36); Mean Corpuscular Hemoglobin 34.3 pg (26-34); Mean Corpuscular Volume 103.2 fl (80-100); Mean Platelet Volume 12.9 fl (7.4-10.4); Monocytes Absolute Auto 0.9 K/mm3 (0.1-0.6); Monocytes Percent Auto 10.9 % (2.6-8.5); Neutrophils Percent Auto 72.8 % (45.5-73.1); Platelet Count Result 173 k/mm3 (150-375); White Blood Count 8.2 K/mm3 (4.5-10.0)
[2021-08-31 05:22] LABS: Alanine Aminotransferase 7 U/L (6-35); Albumin Level 3.6 g/dL (3.5-5.1); Alkaline Phosphatase 72 U/L (38-126); Anion Gap 9 mmol/L (8-16); Aspartate Amino Transferase 14 U/L (14-36); Bilirubin,Total 0.7 mg/dL (0.2-1.3); Blood Urea Nitrogen 16 mg/dL (7-17); Calcium 8.7 mg/dL (8.4-10.2); Carbon Dioxide 24 mmol/L (22-30); Chloride 104 mmol/L (98-107); Estimated CRCL calculation 58 ml/min; Estimated Glomerular Filt Rate > 60; Glucose 141 mg/dL (65-110); Potassium 3.7 mmol/L (3.4-5.0); Sodium 137 mmol/L (137-145)
[2021-08-31] MEDS: APIXABAN 5 MG TABLET 10 MG PO (05:35)
[2021-08-31 07:49] LABS: Glucose Point of Care 132 mg/dl (65-105)
--- NOTE | 2021-08-31 09:36 | PM.PNCARD ---
Progress Note: A&P Assessment and Plan (1) Bilateral pulmonary embolism: Code(s): I26.99 - Other pulmonary embolism without acute cor pulmonale Status: Acute Assessment and Plan: Continue anticoagulation (2) Elevated troponin: Code(s): R77.8 - Other specified abnormalities of plasma proteins Status: Acute Assessment and Plan: This is evidence of RV strain (3) Deep vein thrombosis of left lower limb: Code(s): I82.402 - Acute embolism and thrombosis of unspecified deep veins of left lower extremity Status: Acute Assessment and Plan: Extensive and on anticoagulation: Improving per patient (4) Hypertension: Code(s): I10 - Essential (primary) hypertension Status: Acute Assessment and Plan: At goal (5) Right ventricular enlargement: Code(s): I51.7 - Cardiomegaly Status: Acute Assessment and Plan: Patient has RV enlargement and hypokinesis consistent with RV strain related to bilateral pulmonary emboli. Given elevated troponins, I agree with previous consideration of thrombectomy or tPA but patient had previously declined. At this point, simply recommend continue anticoagulation. Subjective Date/time seen: 08/31/21 09:36 Interval history: History: Patient is 70-year-old female with DVT, PE and RV strain Date of service 08/31/2021: Feels okay. No complaints of chest pain or shortness breath. She thinks her left leg is less swollen. Review of Systems Review of Systems: All systems reviewed & are unremarkable except as noted in HPI and below Constitutional: Constitutional: Denies body ache(s) and Denies excessive sweating Eyes: Eyes: Denies blurry vision ENT: Reports Normal hearing present Cardiovascular: Cardiovascular: Denies chest pain, Reports pedal edema, Reports leg edema and Reports dyspnea Respiratory: Respiratory: Reports dyspnea Gastrointestinal: Gastrointestinal: Denies abdominal pain Genitourinary: Genitourinary: Denies hematuria Musculoskeletal: Musculoskeletal: Denies back pain Integumentary/Breasts: Skin/Breast: Denies breast pain Neurologic: Reports Normal hearing present, Denies Abnormal speech present, Denies behavioral changes and Denies confusion Psychiatric: Psychiatric: Denies behavioral changes and Denies confusion Endocrine: Endocrine: Denies excessive sweating Hematologic/Lymphatic: Hematologic/Lymphatic: Denies easy bleeding Allergic/Immunologic: Allergic/Immunologic: Denies GI upset with certain foods Exam Narrative: Awake alert appears stated age Const: General: comfortable; No in distress or confusion Orientation/consciousness: No confusion HENMT: General nose exam: Normal nares present Mouth: No dry mucous membranes Eyes: Sclera: sclerae normal Neck: Neck: supple Thyroid: thyroid normal Carotids: no bruits Chest: Other: No reproducible chest wall pain to palpation Resp: Effort & Inspection: normal respiratory effort Auscultation: clear to auscultation bilaterally Cardio: Rate: regular rate Rhythm: regular rhythm Heart sounds: no murmurs GI: Inspection: non-distended Auscultation: normal bowel sounds Skin: General skin exam: normal color Neuro: General: No confusion Cranial nerves: Yes Normal hearing present Speech: normal speech and No Abnormal speech present Sensory Exam: normal sensation Extrem: Other: Left leg is edematous and red Psych: Mental Status: mental status grossly normal Objective Data Vital Signs Vital Signs: Vital Signs - 24 hr 08/30/21 12:00 08/30/21 16:00 08/30/21 10:00 Temperature 36.9 C 36.7 C Pulse Rate 91 97 90 Respiratory Rate 16 17 Blood Pressure 117/51 L 118/66 Pulse Oximetry 95 95 Oxygen Delivery 08/30/21 12:00 08/30/21 14:00 08/30/21 16:00 Temperature Pulse Rate 104 H 98 98 Respiratory Rate Blood Pressure Pulse Oximetry Oxygen Delivery 08/30/21 18:00 08/30/21 12:0
[2021-08-31] MEDS: glyBURIDE 5 MG TABLET 10 MG PO (09:40)
[2021-08-31] MEDS: ASPIRIN 81 MG ENTERIC TABLET PO (09:40)
[2021-08-31] MEDS: CHOLECALCIFEROL 1,000 UNITS TABLET 2000 UNITS PO (09:40)
[2021-08-31] MEDS: EMPAGLIFLOZIN 25 MG TABLET PO (09:41)
[2021-08-31] MEDS: HYDROcodone/acetaminophen (*CRX) 5-325 MG TABLET 1 TAB PO (11:29)
--- NOTE | 2021-08-31 12:15 | PM.DS ---
DS: Admitting Diagnosis Discharge Date 08/31/2021 Admitting Diagnosis Leg swelling, dizziness, shortness of breath. DS: Summary Hospital Course Reason for hospitalization: Chief Complaint: Leg swelling, dizziness, shortness of breath. Narrative: This is a very pleasant 70-year-old female smoker with type 2 diabetes and hyperlipidemia who presented to the emergency department from home for evaluation of leg swelling, dizziness, and shortness of breath. Her chronic medical conditions are well controlled and she is otherwise very healthy.? She still works 3 days a week and is very active. Two days ago while leaving work she got a bit short of breath when walking to her car which is unusual for her. Since that time she has continued to experience dyspnea on exertion and yesterday she felt dizzy after walking up the basement stairs and in fact she fell when entering the kitchen from the basement stairs, luckily not injuring herself. Yesterday she also noticed that her left leg seemed to be swollen and this morning her granddaughter convinced her to come in for evaluation given increasing swelling in that leg. Venous Doppler ultrasound of the left leg showed an extensive DVT and a subsequent chest CTA showed extensive bilateral pulmonary embolism in all lobes with a subtle embolus on the right and some evidence of right ventricular strain. At the time my evaluation she appears in no respiratory distress and her vital signs are stable aside from tachycardia with a rate of around 113. SpO2 is currently 100% on room air. The patient was initially reluctant to stay in the hospital but after lengthy discussion she has decided that she is okay with admission. We did discuss the possibility of transfer to a tertiary care center for consultation with Interventional Radiology to see if she may be a candidate for thrombectomy or catheter guided tPA however she declined that at this time and she would prefer to stay here. She has no prior history of blood clots and she denies recent travel and surgery. In fact she is very active as detailed above.? She has no known history of malignancy.? She is up-to-date on her mammograms and colonoscopy.? Her weight has remained stable; she has always been quite thin. Currently she has no complaints and denies syncope, headache, chest pain, pleuritic pain, palpitations, nausea, vomiting, sweats and numbness/paresthesias of the left leg. Hospital Course: 70-year-old female presented to emergency department with complaint of? exertional shortness of breath patient is found to have extensive DVT and pulmonary emboli this is unprovoked as patient is not immobilize and there are no risk factors for blood clots, currently patient is being treated with heparin, however there is a concerning lesion in the liver and needs further evaluation with MRI currently patient is on heparin drip and today will? switch the patient on to oral anticoagulation? Eliquis,and do the MRI to further evaluate? liver lesion,? and had a cardiac echo has a patient LV function is preserved,? with right heart strain and there is concern patient may have thrombosed in right ventricle patient has been anticoagulated,? today patient was seen by Cardiology does not suspect true thrombosis and does not need SHIVANI,? as patient is currently anticoagulated. patient to follow-up with Dr. Pace, oncology hematology in 1 week, patient to follow-up with her primary care provider as soon as possible, patient instructed to avoid extraneous exercise, patient instructed if any symptoms redeveloped go to nearest emergency department. patient will take Eliquis 10mg BID until finish thereafter will take 5mg BID for rest of her life. Time Spent with Patient Time attestation: Total time spent providing and/or coordinating discharge services: Exam Narrative: Patient is comfortable, NAD HEENT: eyes are clear and none icteric LUNGS: normal respiratory effort ABD: not distended Lower extremities: no e
[2021-09-02 16:23] LABS: Alpha Fetoprotein Tumor Marker 0.6 ng/mL (<6.1)
== END 2021-08-31 12:50 | disposition home or self-care (01) | DRG 176 ==
LOC: ANHED 17:06 → ANHIMU 17:22
PROVIDERS: Internal Medicine; Internal Medicine Hematology & Oncology; Physician Assistant; Admitting Provider Family Medicine; Emergency Provider Emergency Medicine; PCP Emergency Medicine; Visit Provider Family Medicine
DX: I26.99 Other pulmonary embolism without acute cor pulmonale (principal); I82.412 Acute embolism and thrombosis of left femoral vein; I82.432 Acute embolism and thrombosis of left popliteal vein; I82.452 Acute embolism and thrombosis of left peroneal vein; Z20.822 Contact with and (suspected) exposure to COVID-19; R77.8 Other specified abnormalities of plasma proteins; E11.9 Type 2 diabetes mellitus without complications; E78.5 Hyperlipidemia, unspecified; I10 Essential (primary) hypertension; E55.9 Vitamin D deficiency, unspecified; M85.88 Other specified disorders of bone density and structure, other site; R00.0 Tachycardia, unspecified; Z91.81 History of falling; I82.462 Acute embolism and thrombosis of left calf muscular vein
CPT/HCPCS: 36415; 71046; 71275; 74183; 80048; 80053; 82105; 82378; 82607; 82728; 82746; 82948; 83036; 83540; 83550; 83605; 83735; 83880; 84439; 84443; 84480; 84484; 85025; 85055; 85610; 85730; 87502; 93005; 93306; 93971; 96365; 99285; A9270; A9577; C9803; J1644; J1815; Q9967; U0003; U0005

== ENCOUNTER 2021-09-06 11:58 | Emergency (ER) | payer OTHER, SELFPAY ==
[2021-09-06 12:05] VITALS: BP 122/44; PULSE 85; RESP 17; TEMP 36.2; O2SAT 100
--- NOTE | 2021-09-06 12:22 | ED.EXTPRO ---
HPI - Extremity Problem General Chief complaint: Extremity Problem,Nontraumatic Stated complaint: leg swelling Time Seen by Provider: 09/06/21 12:01 History of Present Illness HPI Narrative: 70-year-old female with recent diagnosis of PE 10 days ago, who has been started on Eliquis and has not missed any doses, presents because she was worried that she was having a little bit of pain in her left upper thigh, denies any recent trauma, she is able to ambulate without issues, denies any chest pain or difficulty breathing. No numbness or tingling or weakness of the leg Related Data Home Medications Medication Instructions Recorded Confirmed aspirin 81 mg tablet,delayed 81 mg PO DAILY 04/08/19 08/27/21 release cholecalciferol (vitamin D3) 50 2,000 unit PO DAILY 04/08/19 08/27/21 mcg (2,000 unit) capsule alendronate 70 mg tablet (Fosamax) 70 mg PO WEEKLY 08/27/21 08/27/21 metformin 1,000 mg tablet 1,000 mg PO BIDWM 08/27/21 08/27/21 semaglutide 7 mg tablet (Rybelsus) 7 mg PO HS 08/27/21 08/27/21 Allergies Allergy/AdvReac Type Severity Reaction Status Date / Time No Known Allergies Allergy Verified 08/17/21 11:21 Review of Systems Review of Systems: C/V: No chest pain RESP: No difficulty breathing M/S: Left thigh pain PMFSH Past Medical History Medical History Dyslipidemia Hypertension Osteopenia of multiple sites Type 2 diabetes mellitus Vitamin D deficiency Surgical History Surgical History History of left breast biopsy Microcalcifications on mammogram. Breast biopsy benign, per patient report. History of toe surgery Repair of left 5th toe fracture. Family History Family History Mother Family history of cardiovascular disease Family history of diabetes mellitus in first degree relative Hx of CABG Sibling Family history of cardiovascular disease Pulmonary embolism Father Family history of lung cancer, Onset Age: 67 Social History Social History Social History: Surrogate decision maker: Felicitas Ahmadi (daughter) or Sydney Hayes (granddaughter). Code status: Full code. Years smoked: 20 Smoking status: Current every day smoker Alcohol intake: never Substance use: never Additional living arrangements comments: x 3 years. Granddaughter lives with her. Additional occupation/education comments: Works 3 days a week at [employer]. Spiritual care concerns: No Exam Narrative: EXAMINATION OF ORGAN SYSTEMS/BODY AREAS: Constitutional: Vital signs per nursing GENERAL:[No acute distress, non-toxic appearing.] HEAD: Normal with no signs of head trauma. EYES: EOMI, conjunctiva normal ENT: Hearing grossly intact LUNGS: Nonlabored breathing. Clear to auscultation bilaterally HEART: [Regular rate and rhythm] EXT: Normal range of motion with good strength and sensation, good DP pulses bilaterally, normal cap refill SKIN: Slight bruising on left lateral lower leg, left medial upper leg NEURO: [Alert and oriented x 3. No gross focal sensory or strength deficits.] PSYCH: Normal affect Course Vital Signs Vital signs: Vital Signs Temperature 97.1 F L 09/06/21 12:05 Pulse Rate 85 09/06/21 12:05 Respiratory Rate 17 09/06/21 12:05 Blood Pressure 122/44 L 09/06/21 12:05 Pulse Oximetry 100 09/06/21 12:05 Temperature 97.1 F L 09/06/21 12:05 Pulse Rate 82 09/06/21 12:45 Respiratory Rate 16 09/06/21 12:45 Blood Pressure 117/56 L 09/06/21 12:45 Pulse Oximetry 99 09/06/21 12:45 MDM - Extremity (Nontraumatic) MDM Narrative Medical decision making narrative: 70-year-old female presenting with pain in her left upper thigh and some mild bruising on exam but otherwise well-appearing with normal vital signs, she is already therapeutic on
[2021-09-06 12:45] VITALS: BP 117/56; PULSE 82; RESP 16; O2SAT 99
== END 2021-09-06 12:46 | disposition home or self-care (01) ==
LOC: ANHED 12:29
PROVIDERS: Emergency Provider Emergency Medicine; PCP Emergency Medicine
DX: M79.652 Pain in left thigh (principal); Z86.711 Personal history of pulmonary embolism; E78.5 Hyperlipidemia, unspecified; I10 Essential (primary) hypertension; E11.9 Type 2 diabetes mellitus without complications; E55.9 Vitamin D deficiency, unspecified; M85.89 Other specified disorders of bone density and structure, multiple sites; Z79.01 Long term (current) use of anticoagulants; Z79.82 Long term (current) use of aspirin; F17.200 Nicotine dependence, unspecified, uncomplicated; Z79.84 Long term (current) use of oral hypoglycemic drugs
CPT/HCPCS: 99281

== ENCOUNTER 2021-11-25 07:39 | Outpatient (CLI) | payer OTHER, SELFPAY ==
--- NOTE | ~2021-11-25 | US_ITS ---
EXAMINATION: US venous doppler [facility] DATE: 11/25/2021 08:23 INDICATION: Left lower limb swelling TECHNIQUE: Purdy scale images without and with compression and Doppler images of the left lower extrem ity veins were obtained. COMPARISON: 08/27/2021 FINDINGS: The left common femoral vein, profunda femoral vein, femoral vein, popliteal vein, peroneal trunk, posterior tibial veins, and greater saphenous vein are patent. IMPRESSION: 1. Patent left lower extremity veins. No evidence of deep venous thrombosis. Reviewed, dictated and finalized at location B.
== END 2021-11-25 07:40 | disposition home or self-care (01) ==
PROVIDERS: PCP Emergency Medicine; Visit Provider Internal Medicine Hematology & Oncology
DX: I82.4Y2 Acute embolism and thrombosis of unspecified deep veins of left proximal lower extremity (principal)
CPT/HCPCS: 93971

== ENCOUNTER 2022-03-24 08:51 | Outpatient (CLI) | payer OTHER, SELFPAY ==
--- NOTE | ~2022-03-24 | MM_ITS ---
EXAMINATION: MM screening [facility] BI w nidhi HISTORY: Screening mammogram TECHNIQUE: Craniocaudal and mediolateral oblique 3-D tomosynthesis images were obtained and synthetic 2-D images were generated. CAD analysis was submitted and interpreted. COMPARISON: 01/27/2021, 01/18/2020, 01/15/2019 BREAST PARENCHYMAL COMPOSITION: There are scattered areas of fibroglandular density. FINDINGS: There are stable lumpectomy changes of the lower left breast and focal asymmetry of the upp er left breast. No suspicious mass, calcification, or architectural distortion are identified in eith er breast to suggest malignancy. There has been no suspicious interval change. IMPRESSION: 1. No mammographic evidence of malignancy. 2. Recommend routine screening mammography in one year. BI-RADS Category 2: Benign finding(s). Reviewed, dictated and finalized at location A. ENGINEER
== END 2022-03-24 08:52 | disposition home or self-care (01) ==
PROVIDERS: PCP Emergency Medicine; Visit Provider Nurse Practitioner
DX: Z12.31 Encounter for screening mammogram for malignant neoplasm of breast (principal)
CPT/HCPCS: 77063; 77067

== ENCOUNTER 2022-04-26 14:29 | Outpatient (CLI) | payer OTHER, SELFPAY ==
[2022-04-26 14:41] LABS: Basophils Percent Auto 0.6 % (0.2-1.2); Eosinophils Absolute Auto 0.2 K/mm3 (0-0.3); Eosinophils Percent Auto 4.1 % (0-4.4); Hematocrit 34.5 % (37.0-47.0); Hemoglobin 11.2 g/dL (12.0-15.0); Immature Granulocyte Absolute 0.04 K/mm3 (0.00-0.031); Immature Granulocyte Percent A 0.8 % (0-0.5); Lymphocytes Absolute Auto 0.64 K/mm3 (0.9-3.2); Lymphocytes Percent Auto 12.4 % (18.3-44.2); Mean Corpuscular HGB Conc 32.5 g/dl (32-36); Mean Corpuscular Hemoglobin 34.8 pg (26-34); Mean Corpuscular Volume 107.1 fl (80-100); Mean Platelet Volume 12.4 fl (7.4-10.4); Monocytes Absolute Auto 0.5 K/mm3 (0.1-0.6); Monocytes Percent Auto 10.5 % (2.6-8.5); Neutrophils Absolute Auto 3.7 K/mm3 (1.3-6.7); Neutrophils Percent Auto 71.6 % (45.5-73.1); Platelet Count Result 228 k/mm3 (150-375); Red Blood Count 3.22 M/mm3 (4.2-5.4); Red Cell Distribution Width 14.5 % (11.5-14.5); White Blood Count 5.2 K/mm3 (4.5-10.0)
[2022-04-26 14:46] LABS: Blood Urea Nitrogen 14 mg/dL (8-26); Carbon Dioxide 28 mmol/L (22-30); Chloride 101 mmol/L (98-109); Estimated Glomerular Filt Rate > 60; Glucose 391 mg/dL (70-105); Ionized Calcium (POC) 1.15 mmol/L (1.11-1.31); Potassium 4.1 mmol/L (3.5-4.9); Sodium 138 mmol/L (138-146)
[2022-04-26 16:31] LABS: Alanine Aminotransferase 18 U/L (6-35); Albumin Level 3.7 g/dL (3.5-5.1); Alkaline Phosphatase 51 U/L (38-126); Anion Gap 7 mmol/L (8-16); Aspartate Amino Transferase 18 U/L (14-36); Bilirubin,Total 0.5 mg/dL (0.2-1.3); Blood Urea Nitrogen 14 mg/dL (7-17); Calcium 8.7 mg/dL (8.4-10.2); Carbon Dioxide 27 mmol/L (22-30); Chloride 103 mmol/L (98-107); Estimated Glomerular Filt Rate > 60; Glucose 381 mg/dL (65-110); Potassium 4.2 mmol/L (3.4-5.0); Sodium 137 mmol/L (137-145)
[2022-04-26 17:07] LABS: Thyroid Stimulating Hormone 0.944 uIU/mL (0.465-4.680)
[2022-04-26 17:44] LABS: Folic Acid > 20.0 ng/mL (2.76->20); Vitamin B12 < 159.0 pg/mL (239-931)
== END 2022-04-26 14:30 | disposition home or self-care (01) ==
LOC: ANHLAB 14:30
PROVIDERS: PCP Emergency Medicine; Visit Provider Internal Medicine Hematology & Oncology
DX: I26.92 Saddle embolus of pulmonary artery without acute cor pulmonale (principal); D64.9 Anemia, unspecified
CPT/HCPCS: 36415; 80047; 80053; 82607; 82746; 84443; 85025

== ENCOUNTER 2022-05-03 11:07 | Outpatient (CLI) | payer OTHER, SELFPAY ==
[2022-05-03 12:13] LABS: Iron 86 ug/dL (37-170)
[2022-05-03 12:24] LABS: Percent Iron Saturation 22 % (20-50)
[2022-05-07 00:21] LABS: Methylmalonic Acid 117 nmol/L (87-318)
== END 2022-05-03 11:08 | disposition home or self-care (01) ==
LOC: ANHLAB 11:07
PROVIDERS: PCP Emergency Medicine; Visit Provider Internal Medicine Hematology & Oncology
DX: D64.9 Anemia, unspecified (principal)
CPT/HCPCS: 36415; 82728; 83540; 83550; 83921

== ENCOUNTER → 2022-09-30 09:25 | Outpatient (CLI) | payer OTHER, SELFPAY ==
--- NOTE | ~2022-09-30 | MR_ITS ---
EXAMINATION: MR MRCP wo/w con/w 3D wo ind DATE: 09/30/2022 11:08 INDICATION: Intraductal papillary mucinous neoplasm TECHNIQUE: Magnetic resonance imaging (MRI) of the abdomen was performed without and with intravenous contrast. Sequences included coronal T2-weighted SS-FSE ARC, coronal T2-weighted FS SS-FSE, coronal T2-weighted 2D FS FIESTA, Water:Coronal LAVA-Flex, sagittal T2-weighted SS-FSE ARC, axial SSFSE ARC, axial 3D DualEcho, axial DWI B=600, axial T1-weighted LAVA, FAT:Coronal LAVA-Flex, and coronal in and opposed phase LAVA-Flex. Thick-slab T2-weighted FRFSE-XL images were obtained for magnetic resonance cholangiopancreatography (MRCP). Maximum intensity projection 3-D reconstructions of the volumetric data were created by the technologist. Postcontrast sequences included a time course of axial T1-weig hted LAVA, FAT:Coronal LAVA-Flex, coronal in and opposed phase LAVA-Flex, and Water:Coronal LAVA-Flex . COMPARISON: 08/30/2021 CONTRAST: Multihance, 10 cc FINDINGS: ABDOMEN MRI: Cysts of the liver are again noted which measure up to 1.3 cm. The spleen and adrenal gl ands are normal. Stones layer in the nondistended gallbladder. Multiple small cystic lesions are agai n seen in the body and tail of the pancreas which measure up to 4 mm. Some demonstrate communication with the main pancreatic duct. Cysts of the kidneys measure up to 2.1 cm on the left. There are no pa thologically enlarged abdominal lymph nodes. There is no abnormal enhancement after contrast administ ration. ABDOMEN MRCP: There is no intrahepatic or extrahepatic biliary dilatation. No stones or stricture of the common bile duct. The pancreatic duct is normal in course and caliber. IMPRESSION: 1. Stable cystic lesions of the pancreas, some of which communicate with the main pancreatic duct, wi th differential as previously described. Follow-up MRI without and with contrast in two years is bashir mmended. 2. Cholelithiasis without evidence of cholecystitis. Reviewed, dictated and finalized at location B. IMPRESSION: 1. Stable cystic lesions of the pancreas, some of which communicate with the ma in pancreatic duct, with differential as previously described. Follow-up MRI wi thout and with contrast in two years is recommended. 2. Cholelithiasis without evidence of cholecystitis.
== END ==
PROVIDERS: PCP Emergency Medicine
DX: D49.0 Neoplasm of unspecified behavior of digestive system (principal); K86.9 Disease of pancreas, unspecified; K80.20 Calculus of gallbladder without cholecystitis without obstruction
CPT/HCPCS: 74183; 76376; A9577

== ENCOUNTER 2023-04-13 13:52 | Outpatient (CLI) | payer OTHER, SELFPAY ==
--- NOTE | ~2023-04-13 | US_ITS ---
US art doppler w press LE BI INDICATION: Peripheral vascular disease TECHNIQUE: Segmental pressures and plethysmographic and Doppler waveforms of the brachial and lower e xtremity arteries were obtained. COMPARISON: None. FINDINGS: Right and left brachial artery pressures of 121 mm Hg and 110 mm Hg, respectively, are concordant (no rmal difference <= 30 mmHg). There is triphasic flow in the lower extremity arteries. The right ankle-brachial index (OREN) is 1.38 (normal >= 0.9-1.0). The right great toe-brachial index (TBI) is 0.73 (normal >= 0.60). The left ORNE is 1.4. The left TBI is 0.73. IMPRESSION: 1. Normal bilateral ankle and toe brachial indices. Reviewed, dictated and finalized at location B. E EXAMINER
== END 2023-04-13 13:53 | disposition home or self-care (01) ==
PROVIDERS: PCP Emergency Medicine; Visit Provider Emergency Medicine
DX: I73.9 Peripheral vascular disease, unspecified (principal)
CPT/HCPCS: 93923

== ENCOUNTER → 2023-04-27 10:36 | Outpatient (CLI) | payer OTHER, SELFPAY ==
--- NOTE | ~2023-04-27 | MR_ITS ---
MRI of the lumbar spine Clinical History: Back pain Technique: Axial T2-weighted images, and sagittal T1-weighted, T2-weighted, and T2 fat-sat images wer e acquired. Findings: No acute fracture seen. There is minimal grade 1 anterolisthesis of L3 over L4. There are r eactive marrow signal changes about the L4-L5 disc space due to underlying degenerative disc disease. At L1-L2, there is no disc bulge or herniation. There is mild facet arthropathy. No central canal angie nosis or neural foraminal narrowing. At L2-L3, there is minimal disc bulge and moderate facet arthropathy. No central canal stenosis or ne ural foraminal narrowing. At L3-L4, there is disc bulge and severe facet arthropathy, with minimal central canal stenosis. Ther e is mild to moderate left neural foraminal narrowing, and minimal right neural foraminal narrowing. At L4-L5, there is diffuse disc bulge with superimposed left paracentral disc protrusion. There is ad vanced facet arthropathy. No central canal stenosis. There is advanced right neural foraminal narrowi ng. There is minimal left neural foraminal narrowing. At L5-S1, there is degenerative disc narrowing with disc bulge and moderate facet arthropathy. No debbie tral canal stenosis. There is severe bilateral neural foraminal narrowing. Paravertebral soft tissues are unremarkable. Impression: Advanced degenerative spondylosis at L4-L5 and L5-S1, as detailed above. Mild degenerative change otherwise, as above. Minimal grade 1 anterolisthesis of L3 over L4. Reviewed, dictated and finalized at [facility]. NILE COUNSELOR Impression: Advanced degenerative spondylosis at L4-L5 and L5-S1, as detailed above. Mild degenerative change otherwise, as above. Minimal grade 1 anterolisthesis of L3 over L4.
== END ==
PROVIDERS: PCP Internal Medicine Hematology & Oncology; Visit Provider Emergency Medicine
DX: M47.817 Spondylosis without myelopathy or radiculopathy, lumbosacral region (principal); M47.816 Spondylosis without myelopathy or radiculopathy, lumbar region
CPT/HCPCS: 72148

== ENCOUNTER 2023-05-04 08:08 | Outpatient (CLI) | payer OTHER, SELFPAY ==
--- NOTE | ~2023-05-04 | MM_ITS ---
EXAMINATION: MM screening [facility] BI w nidhi HISTORY: Screening mammogram TECHNIQUE: Craniocaudal and mediolateral oblique 3-D tomosynthesis images were obtained and synthetic 2-D images were generated. CAD analysis was submitted and interpreted. COMPARISON: 03/24/2022, 01/27/2021, 01/18/2020 BREAST PARENCHYMAL COMPOSITION: There are scattered areas of fibroglandular density. FINDINGS: Stable lumpectomy changes are again noted in the left breast. No suspicious mass, calcifica tion, or architectural distortion are identified in either breast to suggest malignancy. There has be en no suspicious interval change. IMPRESSION: 1. No mammographic evidence of malignancy. 2. Recommend routine screening mammography in one year. BI-RADS Category 2: Benign finding(s). Reviewed, dictated and finalized at location A. ICAL PROFESSOR
== END 2023-05-04 08:09 | disposition home or self-care (01) ==
PROVIDERS: PCP Emergency Medicine; Visit Provider Nurse Practitioner
DX: Z12.31 Encounter for screening mammogram for malignant neoplasm of breast (principal)
CPT/HCPCS: 77063; 77067

== ENCOUNTER 2023-06-06 08:40 | Outpatient (CLI) | payer OTHER, SELFPAY ==
--- NOTE | ~2023-06-06 | US_ITS ---
EXAMINATION: US thyroid DATE: 06/06/2023 09:12 INDICATION: Thyroid nodule TECHNIQUE: Multiple ultrasound images of the thyroid were obtained. COMPARISON: None. FINDINGS: The right thyroid lobe measures 6.1 x 1.3 x 1.7 cm. The left thyroid lobe measures up to 3 x 1.6 x 1 .9 cm. There are a few small shadowing coarse calcification versus peripheral calcified nodules in th e mid to inferior left thyroid lobe measuring 6 mm, 5 mm and 4 mm in maximal diameters. The 5 mm nodu le demonstrates lobular margins (TI-RADS 5, highly suspicious , FNA if >=1.0 cm, annual followup is > 0.5 cm), the 6 mm and 4 mm nodules demonstrate smooth margins (TI-RADS 4, moderately suspicious , FNA if >=1.5 cm, annual followup is >=1 cm). A few additional wider than tall predominant solid hypoecho ic nodules with either smooth or ill-defined margins (TI RADS 4), the largest on both the left and ri ght measuring 2.0 cm in the mid left thyroid and in the inferior right thyroid the remainder all aleks ure 1.1 cm or smaller. IMPRESSION: 1. Multinodular goiter. Recommend ultrasound-guided biopsy of the bilateral 2.0 cm TI RADS 4 nodules. Reviewed, dictated and finalized at location A.
--- NOTE | ~2023-06-06 | DEXA_ITS ---
Bone Density Report Name: SEFERINO BE Age: 72 Sex: Female Ethnicity: White Date of : 1950 Indication: postmenopausal osteoporosis; monitoring treatment; parental hip fracture; Referring Provider: Brendon, Wanda Study: Bone densitometry was performed. Exam Date: June 06, 2023 Accession number: [id number] Bone Density: Region BMD T-score Z-score Classification AP Spine (L1-L4) 0.988 -0.5 1.8 Normal Femoral Neck (Left) 0.600 -2.2 -0.2 Osteopenia Total Hip (Left) 0.661 -2.3 -0.5 Osteopenia Femoral Neck (Right) 0.586 -2.4 -0.3 Osteopenia Total Hip (Right) 0.596 -2.8 -1.1 Osteoporosis Total Hip Mean 0.629 -2.6 -0.8 Osteoporosis World Health Organization criteria for BMD impression classify patients as: Normal (T-score at or above -1.0), Osteopenia (T-score between -1.0 and -2.5), or Osteoporosis (T-score at or below -2.5). 10-year Fracture Risk: FRAX not reported because: Some T-score for Spine Total or Hip Total or Femoral Neck at or below -2.5 Treated for osteoporosis Previous Exams: Region Exam Age BMD T-score BMD Change BMD Change Date g/cm2 vs Baseline vs Previous AP Spine(L1-L4) 06/06/2023 72 0.988 -0.5 -0.061* -0.026* 04/01/2021 70 1.014 -0.3 -0.035* 0.020 03/26/2019 68 0.994 -0.5 -0.055* 0.029* 02/14/2017 66 0.964 -0.8 -0.084* -0.036* 08/04/2014 63 1.001 -0.4 -0.048* -0.040* 01/28/2013 62 1.041 -0.1 -0.008 -0.025* 05/19/2008 57 1.066 0.2 0.017 0.050* 12/27/2006 56 1.016 -0.3 -0.033* -0.033* 12/26/2005 55 1.049 0.0 Total Hip(Left) 06/06/2023 72 0.661 -2.3 -0.276* -0.038* 04/01/2021 70 0.699 -2.0 -0.238* -0.006 03/26/2019 68 0.705 -1.9 -0.232* -0.108* 02/14/2017 66 0.813 -1.1 -0.124* 0.084* 08/04/2014 63 0.730 -1.7 -0.208* -0.023 01/28/2013 62 0.753 -1.6 -0.185* -0.075* 05/19/2008 57 0.828 -0.9 -0.109* -0.056* 12/27/2006 56 0.884 -0.5 -0.053* -0.053* 12/26/2005 55 0.938 0.0 Total Hip(Right) 06/06/2023 72 0.596 -2.8 -0.192* -0.039* 04/01/2021 70 0.636 -2.5 -0.153* 0.017 03/26/2019 68 0.619 -2.7 -0.170* -0.031* 02/14/2017 66 0.650 -2.4 -0.139* -0.109* 08/04/2014 63 0.758 -1.5 -0.030* -0.010 01/28/2013 62 0.769 -1.4 -0.020 -0.061* 05/19/2008 57 0.830
== END 2023-06-06 08:41 ==
LOC: MICIMG 08:41
PROVIDERS: PCP Emergency Medicine; Visit Provider Nurse Practitioner
DX: E04.2 Nontoxic multinodular goiter (principal); M81.0 Age-related osteoporosis without current pathological fracture; M85.89 Other specified disorders of bone density and structure, multiple sites
CPT/HCPCS: 76536; 77080

== ENCOUNTER 2023-06-15 11:56 | Outpatient (CLI) | payer OTHER, SELFPAY ==
--- NOTE | ~2023-06-15 | XR_ITS ---
EXAMINATION: XR lumbar spine min 4V DATE: 06/15/2023 12:53 INDICATION: Low back pain TECHNIQUE: Anteroposterior and lateral in neutral, flexion and extension views of the lumbar spine we re obtained. COMPARISON: MRI, 04/27/2023 FINDINGS: There are 4 mm of anterolisthesis of L3 on L4. No hypermobility is present with flexion or extension. There is severe loss of intervertebral disc space height at L5-S1. There is moderate loss of intervertebral disc space height at L4-5. There are 18 degrees of lumbar dextroscoliosis. The vert ebral body heights are maintained. There is severe facet joint osteoarthritis of the lower lumbar spi ne. IMPRESSION: 1. Severe lower lumbar spondylosis without acute findings. Reviewed, dictated and finalized at location A.
== END 2023-06-15 11:57 ==
LOC: MICIMG 11:58
PROVIDERS: PCP Emergency Medicine; Visit Provider Neurological Surgery
DX: S34.109A Unspecified injury to unspecified level of lumbar spinal cord, initial encounter (principal); M43.06 Spondylolysis, lumbar region
CPT/HCPCS: 72110

== ENCOUNTER 2023-07-25 09:17 | Outpatient (CLI) | payer OTHER, SELFPAY ==
--- NOTE | ~2023-07-25 | XR_ITS ---
EXAMINATION: XR lumbar spine min 4V DATE: 07/25/2023 10:01 INDICATION: Spondylolisthesis, lumbar region. TECHNIQUE: 5 views of lumbar spine including standing views and flexion and extension views were obta ined. COMPARISON: Lumbar spine radiographs 06/15/2023 FINDINGS: There is 15 degrees dextroscoliosis of lumbar spine. There is 4 mm anterolisthesis of L3 on L4. There is no abnormal motion on flexion or extension. Vertebral body heights are normal. There is mildly decreased disc height at L2-L3, moderately decreased disc height at L3-L4, and severely decre ased disc height at L4-L5 and L5-S1. There is multilevel severe facet joint osteoarthritis. IMPRESSION: 1. Stable severe lumbar spondylosis. 2. Lumbar dextroscoliosis. Reviewed, dictated and finalized at location A.
== END 2023-07-25 09:18 ==
PROVIDERS: PCP Emergency Medicine; Visit Provider Neurological Surgery
DX: M41.86 Other forms of scoliosis, lumbar region (principal); M43.06 Spondylolysis, lumbar region
CPT/HCPCS: 72110

== ENCOUNTER 2023-09-12 09:34 | Outpatient (CLI) | payer OTHER, SELFPAY ==
[2023-09-12 09:49] LABS: Basophils Absolute Auto 0.1 K/mm3 (0.0-0.1); Basophils Percent Auto 1.4 % (0.2-1.2); Eosinophils Absolute Auto 0.1 K/mm3 (0-0.3); Eosinophils Percent Auto 1.8 % (0-4.4); Hematocrit 37.5 % (37.0-47.0); Hemoglobin 11.8 g/dL (12.0-15.0); Immature Granulocyte Absolute 0.04 K/mm3 (0.00-0.031); Immature Granulocyte Percent A 0.9 % (0-0.5); Lymphocytes Absolute Auto 0.91 K/mm3 (0.9-3.2); Lymphocytes Percent Auto 20.7 % (18.3-44.2); Mean Corpuscular HGB Conc 31.5 g/dl (32-36); Mean Corpuscular Hemoglobin 35.1 pg (26-34); Mean Corpuscular Volume 111.6 fl (80-100); Monocytes Absolute Auto 0.4 K/mm3 (0.1-0.6); Monocytes Percent Auto 9.1 % (2.6-8.5); Neutrophils Absolute Auto 2.9 K/mm3 (1.3-6.7); Neutrophils Percent Auto 66.1 % (45.5-73.1); Platelet Count Result 388 k/mm3 (150-375); Red Blood Count 3.36 M/mm3 (4.2-5.4); Red Cell Distribution Width 16.9 % (11.5-14.5); White Blood Count 4.4 K/mm3 (4.5-10.0)
[2023-09-12 09:58] LABS: Anisocytosis 1+; Macrocytosis 1+ (NORMAL); Platelet Estimate Adequate (Adequate); Schistocytes None Seen
[2023-09-12 11:53] LABS: Iron 119 ug/dL (37-170)
[2023-09-12 12:00] LABS: Anion Gap 11 mmol/L (4-12); Blood Urea Nitrogen 16 mg/dL (7-17); Calcium 9.8 mg/dL (8.4-10.2); Carbon Dioxide 23 mmol/L (22-30); Chloride 107 mmol/L (98-107); Estimated Glomerular Filt Rate > 60; Glucose 177 mg/dL (65-110); Potassium 4.5 mmol/L (3.4-5.0); Sodium 141 mmol/L (137-145)
[2023-09-12 12:02] LABS: Percent Iron Saturation 32 % (20-50)
[2023-09-12 13:05] LABS: Folic Acid 13.3 ng/mL (2.76->20)
== END 2023-09-12 09:35 | disposition home or self-care (01) ==
LOC: ANHLAB 09:36
PROVIDERS: PCP Emergency Medicine; Visit Provider Internal Medicine Hematology & Oncology
DX: D64.9 Anemia, unspecified (principal)
CPT/HCPCS: 36415; 80048; 82607; 82728; 82746; 83540; 83550; 85025

== ENCOUNTER 2023-10-05 17:35 | Emergency (ER) | payer OTHER, SELFPAY ==
--- NOTE | ~2023-10-05 | CT_ITS ---
Procedure: CT hip RT wo con Ordering provider: Annmarie Gordon PA-C History: . fall, negative xr, concern for occult fx . Comparison: None. Technique: Thin slice axial CT of the No IV contrast was given. Sagittal and coronal reformatted imag es were also obtained and reviewed. The dose-length product was 115.35 mGy-cm.. Findings: BONES: Fracture of the greater trochanter is noted. Displacement of the bony fragment is seen. No oth er fractures seen. JOINT SPACES: Normal. SOFT TISSUES: Grossly distended urinary bladder. IMPRESSION: Fracture of the greater trochanter. No definite extension to the lesser trochanter is seen. Grossly distended urinary bladder Reviewed, dictated and finalized at location A. IMPRESSION: Fracture of the greater trochanter. No definite extension to the lesser trochan ter is seen. Grossly distended urinary bladder
--- NOTE | ~2023-10-05 | XR_ITS ---
XR shoulder RT min 2V Ordering provider: Ramon Contreras APRN History: . shoulder pain s/p fall . Comparison: None. FINDINGS: BONES: No acute fracture or dislocation. JOINT SPACES: The acromioclavicular joint shows osteoarthritic changes. The glenohumeral joint is peter rowed suggestive of osteoarthritic changes. SOFT TISSUES: Normal. IMPRESSION: No acute osseous abnormality right shoulder. Reviewed, dictated and finalized at location A.
--- NOTE | ~2023-10-05 | XR_ITS ---
XR hip RT 2V w AP pelvis Ordering provider: Ramon Contreras APRN History: . hip pain s/p fall . Comparison: None. FINDINGS: BONES: No acute fracture or dislocation. HIP JOINT SPACES: Mild osteoarthritic change. SACROILIAC JOINT SPACES/LUMBAR SPINE: The sacroiliac joint spaces are normal. Mild degenerative brandt es of the visualized lower lumbar spine. PUBIC SYMPHYSIS: Normal. SOFT TISSUES: Normal. IMPRESSION: No acute osseous abnormality pelvis and right hip. Reviewed, dictated and finalized at location A.
[2023-10-05 18:06] VITALS: BP 144/63; PULSE 91; RESP 20; TEMP 36.3; O2SAT 99
--- NOTE | 2023-10-05 18:27 | ED.FALL ---
HPI - Fall General Chief Complaint: Fall Stated Complaint: fall, right hip and shoulder pain Time Seen by Provider: 10/05/23 19:59 Focused HPI: 73-year-old female history of osteoporosis of presents to the emergency room for evaluation of injuries sustained in a ground level fall. Patient states that she was out walking her dog, when she tripped and fell landing on her right shoulder and right hip. States pain is worse with movement. Unable to ambulate or bear weight on her right leg. Patient states my pain is a 15/10 of . Took 1 g of Tylenol with no improvement of her symptoms. GENERAL: Well-appearing, well-nourished, and in no acute distress. HEAD: Normocephalic, atraumatic. CHEST: Clear to auscultation. No respiratory distress. HEART: Regular rate and rhythm. NEURO: Alert and oriented x3. Patient screened in triage and initial orders placed. Additional care and disposition to be based upon diagnostic testing and treatment. Related Data Home Medications Medication Instructions Recorded Confirmed cholecalciferol (vitamin D3) 50 2,000 unit PO DAILY 04/08/19 10/10/23 mcg (2,000 unit) capsule ferrous sulfate 325 mg (65 mg 325 mg PO DAILY 03/28/23 10/10/23 iron) tablet cyanocobalamin (vitamin B-12) 5,000 mcg PO DAILY 05/12/23 10/10/23 5,000 mcg capsule gabapentin 300 mg capsule See Rx Instructions .Route .COMPLEX 06/08/23 10/10/23 metformin 1,000 mg tablet 1,000 mg PO BID 10/11/23 Allergies Allergy/AdvReac Type Severity Reaction Status Date / Time ciprofloxacin Allergy Intermediate Other Verified 10/10/23 13:22 [facility] Past Medical History Medical History (Updated 10/12/23 @ 12:10 by Bailey Varela MA) Dyslipidemia Elevated troponin Hypertension Lesion of pancreas Liver cyst Osteopenia of multiple sites Painful urination Type 2 diabetes mellitus Vitamin D deficiency Surgical History Surgical History History of left breast biopsy Microcalcifications on mammogram. Breast biopsy benign, per patient report. History of toe surgery Repair of left 5th toe fracture. Family History Family History (Updated 10/11/23 @ 11:39 by Ammy Grullon CMA) Mother Family history of cardiovascular disease Family history of diabetes mellitus in first degree relative Hx of CABG Sibling Family history of cardiovascular disease Pulmonary embolism Father Family history of lung cancer, Onset Age: 67 Unknown Asthma Neuropathy Social History Social History (Updated 10/11/23 @ 11:41 by Ammy Grullon CMA) Social History: Surrogate decision maker: Felicitas Ahmadi (daughter) or Sydney Hayes (granddaughter). Code status: Full code. Smoking packs per day: 0.5 Smoking cigarettes per day: 10.0 Years smoked: 30 Smoking pack-years: 15.00 Smoking status: Former smoker Alcohol intake: never Substance use: never Substance use type: does not use Do You Feel Safe in your Home?: Yes Lack of Transportation: No Lack of Food: Never True Current Housing: I Have Housing Concerned About Future Housing: No Difficulty Paying Gas/Electric Bills: No Difficulty Paying for Meds: No Currently Unemployed: No Education: High School Diploma/GED Difficulty w/ Childcare or Family Care: No Additional living arrangements comments: x 3 years. Granddaughter lives with her. Occupation/Education: retired Additional occupation/education comments: Works 3 days a week at [employer]. Gender identity (if verbalized by the patient): Female Spiritual care concerns: No Course Vital Signs Vital signs: Vital Signs Temperature 36.3 C L 10/05/23 18:06 Pulse Rate 91 10/05/23 18:06 Respiratory Rate 20 10/05/23 18:06 Blood Pressure 144/63 H 10/05/23 18:06 Pulse Oximetry 99 10/05/23 18:06 Oxygen Delivery Room Air 10/05/23 18:06 Temperature 36.3 C L 10/05/23 18:06 Pulse Ra
[2023-10-05] MEDS: HYDROcodone/acetaminophen (*CRX) 5-325 MG TABLET 1 TAB PO (20:34)
--- NOTE | 2023-10-05 21:52 | ED.FALL ---
HPI - Fall General Chief Complaint: Fall Stated Complaint: fall, right hip and shoulder pain Time Seen by Provider: 10/05/23 19:59 History of Present Illness HPI Narrative: 73-year-old female presents emergency department family at bedside for right hip and shoulder pain after mechanical injury. Patient states prior to arrival her granddaughter's dog jumped on her and caused her to fall, landing on her right shoulder hip. She did not hit her head or lose consciousness. She denies other injuries acquired. She is anticoagulated on Eliquis. Related Data Home Medications Medication Instructions Recorded Confirmed cholecalciferol (vitamin D3) 50 2,000 unit PO DAILY 04/08/19 08/01/23 mcg (2,000 unit) capsule ferrous sulfate 325 mg (65 mg 325 mg PO DAILY 03/28/23 08/01/23 iron) tablet cyanocobalamin (vitamin B-12) 5,000 mcg PO DAILY 05/12/23 08/01/23 5,000 mcg capsule gabapentin 300 mg capsule See Rx Instructions .Route .COMPLEX 06/08/23 08/01/23 Allergies Allergy/AdvReac Type Severity Reaction Status Date / Time ciprofloxacin Allergy Intermediate Other Verified 10/05/23 17:36 Review of Systems Review of Systems: All systems reviewed & are unremarkable except as noted in HPI and below PMFSH Past Medical History Medical History Dyslipidemia Hypertension Osteopenia of multiple sites Type 2 diabetes mellitus Vitamin D deficiency Surgical History Surgical History History of left breast biopsy Microcalcifications on mammogram. Breast biopsy benign, per patient report. History of toe surgery Repair of left 5th toe fracture. Family History Family History Mother Family history of cardiovascular disease Family history of diabetes mellitus in first degree relative Hx of CABG Sibling Family history of cardiovascular disease Pulmonary embolism Father Family history of lung cancer, Onset Age: 67 Social History Social History Social History: Surrogate decision maker: Felicitas Ahmadi (daughter) or Sydney Hayes (granddaughter). Code status: Full code. Smoking packs per day: 0.5 Smoking cigarettes per day: 10.0 Years smoked: 30 Smoking pack-years: 15.00 Smoking status: Former smoker Alcohol intake: never Substance use: never Substance use type: does not use Do You Feel Safe in your Home?: Yes Lack of Transportation: No Lack of Food: Never True Current Housing: I Have Housing Concerned About Future Housing: No Difficulty Paying Gas/Electric Bills: No Difficulty Paying for Meds: No Currently Unemployed: No Education: High School Diploma/GED Difficulty w/ Childcare or Family Care: No Additional living arrangements comments: x 3 years. Granddaughter lives with her. Additional occupation/education comments: Works 3 days a week at [employer]. Spiritual care concerns: No Exam Narrative: GENERAL: Well-appearing, well-nourished, and in no acute distress. HEAD: Normocephalic, atraumatic. EYES: PERRLA and EOMI. ENT: Nares clear, no rhinorrhea or epistaxis. Mucous membranes moist. NECK: No midline cervical spinous tenderness, step-offs or deformities BACK: No thoracolumbar spinous tenderness, step-offs or deformities CHEST: Clear to auscultation. No respiratory distress. HEART: Regular rate and rhythm. No murmur heard. Normal peripheral pulses. ABDOMEN: Soft, nontender, nondistended, normal active bowel sounds. EXTREMITIES: RUE: Tenderness to the AC joint, no obvious deformite, full passive ROM, abduction of the arm is limited about 25% due to pain, remainder of active range of motion is intact. No tenderness remainder of upper extremity. Radial pulse 2 +. Sensation intact throughout. SKIN: Warm, dry, no rash. RLE:
[2023-10-05 22:25] VITALS: BP 128/76; PULSE 80; RESP 18; O2SAT 98
== END 2023-10-05 22:27 | disposition home or self-care (01) ==
PROVIDERS: Emergency Provider Physician Assistant; PCP Emergency Medicine
DX: S72.111A Displaced fracture of greater trochanter of right femur, initial encounter for closed fracture (principal); I10 Essential (primary) hypertension; E78.5 Hyperlipidemia, unspecified; E11.9 Type 2 diabetes mellitus without complications; E55.9 Vitamin D deficiency, unspecified; M85.89 Other specified disorders of bone density and structure, multiple sites; Z87.891 Personal history of nicotine dependence; Z79.01 Long term (current) use of anticoagulants; Z79.4 Long term (current) use of insulin; Z79.899 Other long term (current) drug therapy; Z79.84 Long term (current) use of oral hypoglycemic drugs; W54.1XXA Struck by dog, initial encounter
CPT/HCPCS: 73030; 73502; 73700; 99284; A9270

== ENCOUNTER 2024-05-09 12:48 | Outpatient (CLI) | payer OTHER, SELFPAY ==
--- NOTE | ~2024-05-09 | US_ITS ---
EXAMINATION: US FNA w image guidance, US FNA additional DATE: 05/09/2024 14:15 INDICATION: Bilateral thyroid nodules TECHNIQUE: A time-out was performed to verify the patient's name, date of , and procedure to be performed . The procedure and its benefits and risks were discussed with the patient. Risks specifically discus sed included bleeding and infection. The patient understood the risks and agreed to proceed. The neck was prepped and draped in the usual sterile manner. Attention was first turned to the left thyroid n odule. 5 mL 1% lidocaine was used for local anesthesia. 8 passes were made with a 25G needle into th e lesion. Appropriate needle location was documented with continuous sonographic guidance. Attention was then turned to the right thyroid nodule. Additional 5 mL 1% lidocaine was used for loca l anesthesia. 7 passes were made with a 25G needle into the lesion. Appropriate needle location was documented with continuous sonographic guidance. Sterile bandages were applied. There were no immed iate complications. FINDINGS: Grayscale ultrasound images demonstrate biopsy needles advanced into first a 2.6 cm TI RADS 5 solid h eterogeneously hypoechoic nodule with lobular margins and with coarse calcifications. Subsequent imag es demonstrate biopsy needles advanced into a 2.0 cm solid heterogeneously hypoechoic nodule with smo oth margins and without calcifications in the right thyroid lobe. IMPRESSION: 1. Successful ultrasound-guided fine needle aspiration of a 2.6 cm TI-RADS 5 left thyroid nodule. 2. Successful ultrasound-guided fine-needle aspiration of a 2.0 cm TI-RADS 4 right thyroid nodule. Reviewed, dictated and finalized at location A. MACEUTICAL COMPOUNDING SUPERVISOR IMPRESSION: 1. Successful ultrasound-guided fine needle aspiration of a 2.6 cm TI-RADS 5 l eft thyroid nodule. 2. Successful ultrasound-guided fine-needle aspiration of a 2.0 cm TI-RADS 4 ri ght thyroid nodule.
--- OUTSIDE RECORDS SUMMARY | 2024-05-09 13:00 | XMS_ITS | Encounter Summary ---
Author Organization [facility] Address [address] [place] [address] Care Team Providers Care Needle Loom Operator Name Role Phone Vipin Gutierrez MD Primary Care Provider [phone] Encounter Details Date Type Department Care Team (Late st Contact Info) Description 07/24/2023 Telephone [facility] - Endocrinology [address] [place] [address], [place] [address] Disha Brito MD [address] [place] [address] [place] [id number] Social History Tobacco Use Types Packs/Day Years Used Date Smoking Tobacco: Never Assessed Sex and Gender Information Value Date Recorded Sex Assigned at Not on file Gender Identity Not on file Sexual Orientation Not on file documented as of this encounter Miscellaneous Notes * Telephone Encounter - Erlinda Kate - 07/24/2023 10:59 AM CDT Current Provider: Dr. Disha Brito Reason for Call: Ms. Dara Hayes was schedule 07/21/23 for appt 07/25/[address] Brito by Carole Crowell, she called to see if her referral w med records had been received. She's coming from [facility] and wants to make sure everythign is in order. Does she need refferal w notes since this was just schedueld? She added after I had typed info, she is being referred by her OBGYN who called office. There is no referring provider on appt. Thanks. Patient Call Back Number: [phone] documented in this encounter Plan of Treatment Not on file documented as of this encounter Visit Diagnoses Not on filedocumented in this encounter Care Teams Needle Loom Operator Relationship Specialty Start Date End Date Vipin Gutierrez MD [address] [place] [address] PCP - General Internal Medicine 07/24/23 documented as of this encounter
--- OUTSIDE RECORDS SUMMARY | 2024-05-09 13:00 | XMS_ITS | Encounter Summary ---
Author Organization [facility] Address [address] [place] [address] Care Team Providers Care Automobile Assembly Supervisor Name Role Phone Vipin Gutierrez MD Primary Care Provider [phone] Encounter Details Date Type Department Care Team (Late st Contact Info) Description 05/07/2024 External Device Data [facility] Provider, Abstract NO ADDRESS ON FILE Social History Tobacco Use Types Packs/Day Years Used Date Smoking Tobacco: Never Alcohol Use Standard Drinks/Week Comments Never 0 (1 standard drink = 0.6 oz pur e alcohol) Comments No Sex and Gender Information Value Date Recorded Sex Assigned at Not on file Legal Sex Female 1:24 PM CDT Gender Identity Not on file Sexual Orientation Not on file documented as of this encounter Plan of Treatment Upcoming Encounters Date Type Department Care Team (Late st Contact Info) Description 05/23/2024 2:00 PM PASTEURIZER Office Visit [facility] Oncology and Hematology - [place] [address] [place] [address] Bran Pace MD [address] [facility] [address] [place] [address] documented as of this encounter Visit Diagnoses Not on filedocumented in this encounter Care Teams Automobile Assembly Supervisor Relationship Specialty Start Date End Date Vipin Gutierrez MD [address] [place] [address] PCP - General Internal Medicine 09/07/21 documented as of this encounter
--- OUTSIDE RECORDS SUMMARY | 2024-05-09 13:00 | XMS_ITS | Continuity of Care Document ---
Author Organization [facility] Address [id number] [place] [address] [address] [place] [address] Phone Care Team Providers Care Data Center Consultant Name Role Phone John Calhoun DO Unavailable Unavailable Advance Directives Directive Yes / No Effective Date File Name No Information Encounters Encounter Description Practice Location Reason(s) For Visit Diagnoses Date Provider Providers [facility] [address] [place] [address] [address], [place], [place], [id number], [place] tel:[phone] [facility] No Information [facility] [place] [address] [place], [address], [place]. tel: [phone] Family History Family Member Type Diagnosis Age At Onset No Information Payers Payer name Insurance type Covered alliance party ID Authoriza tion(s) No Information Social History Type Description Quantity Date Captured Comments Sex Female Smoking Status No Information Chief Complaint And Reason For Visit No Information Reason For Referral Reason For Referral No Information History Of Present Illness Encounter Date Complaint History Of Prese nt Illness No Information Functional Status Date Functional Assessmen t No Information Instructions Date Instruction Additional Infor mation No Information Assessments Type Assessment Date No Information Patient Care Teams Name Effective Dates (start - stop) Status Members No Information
--- OUTSIDE RECORDS SUMMARY | 2024-05-09 13:00 | XMS_ITS | Clinical Summary ---
Author Organization [facility] Address [address] [place] [address] Care Team Providers Care Addresser Name Role Phone Vipin Gutierrez MD Primary Care Provider [phone] Source Comments [facility],non-owned Affiliates and Associated Physician Practices is amultiple site organization consisting of ambulatory clinics and hospital sitesin [place], [place], [place] and [place]. This disclosure is being madepursuant to the Care Everywhere program and may not contain all information available regarding this patient. Last updated 17.[facility] Allergies Active Allergy Reactions Criticality Noted Date Comments Ciprofloxacin Itching Low 12/21/2021 Phlebitis to veins Medications * Be aware that medications may not be up to date on this document. Alwaysverify current medications with the patient. Medication Sig Dispensed Refills Start Date End Date Status Farxiga 10 MG tablet Take 1 (one) tablet by mouth once daily 07/13/2023 Active Eliquis 2.5 MG tablet Take 1 (one) tablet by mouth 2 times daily 07/17/2023 Active simvastatin (Zocor) 10 MG tablet Take 1 (one) tablet by mouth every morning 05/04/2023 Active metFORMIN (Glucophage) 1000 MG tablet TAKE 1 TABLET BY MOUTH TWICE A DAY WITH BREAKFAST AND DINNER 05/31/2023 Active Social History Tobacco Use Types Packs/Day Years Used Date Smoking Tobacco: Never Assessed Sex and Gender Information Value Date Recorded Sex Assigned at Not on file Gender Identity Not on file Sexual Orientation Not on file Last Filed Vital Signs Vital Sign Reading Time Taken Comments Blood Pressure 119/57 07/25/2023 12:43 PM CDT Pulse 85 07/25/2023 12:43 PM CDT Temperature - - Respiratory Rate - - Oxygen Saturation 96% 07/25/2023 12:43 PM CDT Inhaled Oxygen Concentration - - Weight 45.8 kg (101 lb) 07/25/2023 12:43 PM CDT Height - - Body Mass Index - - Plan of Treatment Health Maintenance Due Date Last Done Comments BONE DENSITY TESTING 1948 COLOGUARD (AGES 45-75) - COL ON CA SCREENING 1948 COLON MONITORING 1948 COLONOSCOPY - COLON CA SCREENING 1948 CT COLONOGRAPHY - COLON CA SCREENING 1948 Colorectal Cancer Screening 1948 FIT - COLON CA SCREENING 1948 FLEX SIG - COLON CA SCREENING 1948 MAMMOGRAM 1948 HEPATITIS C SCREENING 09/27/1966 DTAP/TDAP/TD VACCINES (1 - Tdap) 10/02/1967 PNEUMOCOCCAL VACCINE 50+ (1 of 2 - PCV) 10/02/1967 ZOSTER VACCINE (1 of 2) 1998 Respiratory Syncytial Virus (RSV) Vaccine Pt: or over 60 yrs (1 - 1-dose 75+ series) 10/02/2023 COVID-19 VACCINE ( - 2023-2 5 season) 2023 INFLUENZA VACCINE (#1) 2023 DEPRESSION SCREENING 03/20/2024 MEDICARE AWV CALENDAR YEAR 2024 HEPATITIS B VACCINE Aged Out No longe r eligible based on patient's age to complete this topic HIB VACCINE Aged Out No longer eligi ble based on patient's age to complete this topic HPV VACCINE Aged Out No longer eligi ble based on patient's age to complete this topic MENINGOCOCCAL (Group B) VACCINE Aged Out No longer eligible based on patient's age to complete this topic MENINGOCOCCAL VACCINE Aged Out No maryellen nicanor eligible based on patient's age to complete this topic Care Teams Addresser Relationship Specialty Start Date End Date Vipin Gutierrez MD [address] [place] [address] [address] [place] [address] PCP - General Internal Medicine 07/24/23
--- OUTSIDE RECORDS SUMMARY | 2024-05-09 13:00 | XMS_ITS | Clinical Summary ---
Author Organization [facility] Address [address] [place] [address] Care Team Providers Care Exterminator Helper Name Role Phone Vipin Gutierrez MD Primary Care Provider [phone] Allergies Active Allergy Reactions Criticality Noted Date Comments Ciprofloxacin Itching Low 12/21/2021 Phlebitis to veins Medications metFORMIN (GLUCOPHAGE) 1,000 mg tablet 2 Active Farxiga 10 mg Tablet 2 Active simvastatin (ZOCOR) 10 mg tablet 2 Active alendronate (FOSAMAX) 70 mg tablet 2 Active Contour Next Test Strips Strip 2 Active CALCIUM CARBONATE-VITAM IN D3 ORAL Take by mouth. Acti ve Semglee,insulin glarg-yfgn,Pen 100 unit/mL (3 mL) pen syringe Inject by subcutaneous injection one time only. 4 Active ferrous sulfate (Iron) 325 mg (65 mg iron) tablet Take 325 mg by mouth daily. 4 Active gabapentin (NEURONTIN) 100 mg capsule Take 100 mg by mouth 3 times daily. Active Rybelsus 7 mg Tablet Take 1 Tablet by mouth daily. 4 Active CYANOCOBALAMIN, VITAMIN B-12, ORAL Take by mouth. 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 09/07/2021 IPMN (intraductal papillary mucinous neoplasm) 0 09/07/2021 Encounters Date Type Department Care Team Description 05/07/2024 External Device Data [facility] Provider, Abstract 04/16/2024 External Device Data [facility] Provider, Abstract 04/10/2024 External Device Data [facility] Provider, Abstract 04/10/2024 External Device Data [facility] Provider, Abstract 04/03/2024 External Device Data [facility] Provider, Abstract from Last 3 Months Family History Medical History Relation Name Comments Cancer Brother 2 Diabetes Brother 2 Cancer Father Heart Disease Father Diabetes Mother Heart Disease Mother Diabetes Sister 1 Heart Disease Sister 1 Relation Name Status Comments Brother 1 Alive Brother 2 Alive Father Mother Sister 1 Alive Sister 2 Alive Social History Tobacco Use Types Packs/Day Years Used Date Smoking Tobacco: Never Tobacco Cessation:Counseling Given: Not Answered Alcohol Use Standard Drinks/Week Comments Never 0 (1 standard drink = 0.6 oz pur e alcohol) Comments No Sex and Gender Information Value Date Recorded Sex Assigned at Not on file Legal Sex Female 1:24 PM CDT Gender Identity Not on file Sexual Orientation Not on file Last Filed Vital Signs Vital Sign Reading Time Taken Comments Blood Pressure 114/62 09/14/2023 2:27 PM CDT Pulse 90 09/14/2023 2:27 PM CDT Temperature 36.6 C (97.8 F) 09/14/2023 2:27 PM CDT Respiratory Rate 20 09/14/2023 2:27 PM CDT Oxygen Saturation 96% 09/14/2023 2:27 PM CDT Inhaled Oxygen Concentration - - Weight 45.8 kg (101 lb) 09/14/2023 2:27 PM CDT Height 162.6 cm (5' 4 ) 10/11/2022 9:05 AM CDT Body Mass Index 17.34 10/11/2022 9:05 AM CDT Plan of Treatment Upcoming Encounters Date Type Department Care Team (Late st Contact Info) Description 05/23/2024 2:00 PM PAPER STACKER Office Visit [facility] Oncology and Hematology - [place] [address] [facility] [address] [place] [address] Bran Pace MD [address] [facility] [address] [place] [address] Health Maintenance Due Date Last Done Comments DTAP/TDAP/TD VACCINES (1 - Tdap) 10/02/1967 COLORECTAL SCREENING 1993 Colorectal Cancer Screening 1993 FIT-DNA Q 3 years 1993 FIT/FOBT Q 1 year 1993 Flex Sig/CT Colonography Q 5 years 1993 PNEUMOCOCCAL VACCINE 65+ YEARS (1 of 1 - PCV) 10/01/18 99 ZOSTER VACCINE (1 of 2) 1998 OSTEOPOROSIS SCREENING 2013 RSV VACCINE (60+ or ) (1 - 1-dose 75+ series) 10/02/2023 INFLUENZA VACCINE (#1) 2023 Medicare Advantage (ND) Prev entative Visit/Annual Wellness Visit 03/20/2024 Insurance Member Subscriber Plan / Payer (Ef fective 2021-Present) Name:Abigail Dara Relation to Subscriber:Self Name:Libramohit Dara Payer ID:[id number] (NAIC) Type:A[employer]itoO Address: [place] [id number] Care Teams Exterminator Helper Relationship Specialty Start Date End Date Vipin Gutierrez MD [address] [phone] PCP - General Internal Medicine 09/07/21
--- OUTSIDE RECORDS SUMMARY | 2024-05-09 13:00 | XMS_ITS | Referral Summary ---
Author Organization [facility] Address [address] [place] [address] Care Team Providers Care Platform Mill Supervisor Name Role Phone Vipin Gutierrez MD Primary Care Provider [phone] Source Comments [facility],non-owned Affiliates and Associated Physician Practices is amultiple site organization consisting of ambulatory clinics and hospital sitesin [place], [place], [place] and [place]. This disclosure is being madepursuant to the Care Everywhere program and may not contain all information available regarding this patient. Last updated 17.[facility] Allergies Active Allergy Reactions Criticality Noted Date [...] Mass Index - - Plan of Treatment Not on file Care Teams Platform Mill Supervisor Relationship Specialty Start Date End Date Vipin Gutierrez MD [address] [place] [address] [address] [place], [place] [id number] PCP - General Internal Medicine 07/24/23
--- OUTSIDE RECORDS SUMMARY | 2024-05-09 13:00 | XMS_ITS | Patient Health Summary ---
Author Organization [facility] Address [address] [place] [address] Care Team Providers Care Emr Specialist Name Role Phone Vipin Gutierrez MD Primary Care Provider [phone] [facility],non-owned Affiliates and Associated Physician Practices is amultiple site organization consisting of ambulatory clinics and hospital sitesin [place], [place], [place] and [place]. This disclosure is being madepursuant to the Care Everywhere program and may not contain all information available regarding this patient. Last updated 17.[facility] Allergies * Ciprofloxacin(Itching) -Low Criticality Medications * Be aware that medications may not be up to date on this document. Alwaysverify current medications with the patient. * Farxiga 10 MG tablet(Started 07/13/2023) Take 1 (one) tablet by mouth once daily * Eliquis 2.5 MG tablet(Started 07/17/2023) Take 1 (one) tablet by mouth 2 times daily * simvastatin (Zocor) 10 MG tablet(Started 05/04/2023) Take 1 (one) tablet by mouth every morning * metFORMIN (Glucophage) 1000 MG tablet(Started 05/31/2023) TAKE 1 TABLET BY MOUTH TWICE A DAY WITH BREAKFAST AND DINNER Social History Tobacco Use Types Packs/Day Years [...] - - Body Mass Index - - Procedures * US THYROID(Performed 08/19/2023) Performed for Thyroid nodule Results * US THYROID (08/19/2023 10:41 AM CDT) Anatomical Region Laterality Modality Chest Ultrasound 08/19/2023 3:13 PM CDT Addenda Addendum by John Fernandez MD on 08/22/2023 7:21 AM CDT Addendum: This addendum is to address additional clinical information provided by the diagnostic radiologic technologist. During live scanning, the diagnostic radiologic technologist states that there is no discrete left thyroid nodule. Rather, this appears is diffusely heterogeneous appearing left thyroid lobe. With retrospective review, there is persistent suggestion of capsular delineation between the thyroid isthmus/normal thyroid parenchyma and what appears to be a heterogeneously echoic left thyroid lobe nodule (image [id number]). However, capsular borders are somewhat more ill-defined as the imaged traverses the inferior thyroid lobe. A secure message has been sent to the ordering provider at at 0715 on 08/22/2023 in regards to how to proceed clinically. Options include conservative management and short-term follow-up thyroid ultrasound to document stability. Alternatively, thyroid biopsy could be pursued. > Interpreting Provider: John Fernandez MD on 08/22/2023 7:19 AM Impressions 08/19/2023 8:37 PM CDT IMPRESSION: 1.A 2.0 cm TR 3 nodule (nodule 3) in the left mid/lower thyroid lobe which meets criteria for ultrasound-guided fine-needle aspiration. 2.Recommendations for TR 3 and TR 2 nodules as above. ACR TI-RADS recommendations TR5 (>=7 points) (risk of malignancy > 20%) >=1 cm: FNA 0.5-0.9 cm: follow-up US every year for 5 years <0.5 cm: no further evaluation TR4 (4-6 points) (risk of malignancy 5-20%) >=1.5 cm: FNA 1-1.4 cm: follow-up US in 1, 2, 3, and 5 years <1.0 cm: no further evaluation TR3 (3 points) (risk of malignancy 2-5%) >=2.5 cm: FNA 1.5-2.4 cm: follow-up US in 1, 3, and 5 years <1.5 cm: no further evaluation TR2 (2 points) and TR1 (0 points) (risk of malignancy < 2%) No FNA or follow-up US > Dictated by Raul Smith DO (Director Of Marketing Analytics) I, John Fernandez MD have personally reviewed and interpreted this examination/study. > Interpreting Provider: John Fernandez MD on 08/19/2023 8:37 PM Narrative 08/19/2023 8:37 PM CDT PROCEDURE: US THYROID, DATE/TIME OF EXAM: 08/19/2023 10:41 AM, LOCATION [facility] INDICATION: E04.1: Thyroid nodule COMPARISON: None. FINDINGS: The thyroid is normal in size. There is diffuse hyperemia of the thyroid. Right thyroid lobe: 5.4 x 2.0 x 1.3 cm Left thyroid lobe: 5.7 x 1.8 x 2.1 cm Isthmus: 2 mm Nodule 1: Location: Right lower . Size: 2.0 cm craniocaudal x 1.7 cm transverse x 1.3 cm AP Composition: Mixed cystic and solid (1) Echogenicity: Hypoechoic (2) Shape: Not taller than wide (0) Margins: Smooth (0) Echogenic foci: None (0) ACR TI-RADS total points: 3 ACR TI-RADS risk category: TR3 (3 points) ACR TI-RADS recommendation: Follow-up US in 1 year Nodule 2: Location: Right upper . Size: 1.8 cm craniocaudal x 1.5 cm transverse x 0.8 cm AP Composition: Mixed cystic and solid (1) Echogenicity: Isoechoic (1) Shape: Not taller than wide (0) Margins: Smooth (0) Echogenic foci: None (0) ACR TI-RADS total points: 2 ACR TI-RADS risk category: 2 ACR TI-RADS recommendation: No further follow-up Nodule 3: Large nodule replacing the majority of the left mid thyroid parenchyma, not measured by hospital secretary. Location: Left mid to lower . Size: 2.0 cm craniocaudal x 1.6 cm transverse x 1.6 cm AP Composition: Solid/almost completely solid (2) Echogenicity: Isoechoic (1) Shape: Not taller than wide (0) Margins: Ill-defined (0) Echogenic foci: Macrocalcifications (1) ACR TI-RADS total points: 4 ACR TI-RADS risk category: TR4 (4-6 points) ACR TI-RADS recommendation: US-guided fine needle aspiration Procedure Note John Fernandez MD - 08/19/2023 PROCEDURE: US THYROID, DATE/TIME OF EXAM: 08/19/2023 10:41 AM, [facility] INDICATION: E04.1: Thyroid nodule COMPARISON: None. FINDINGS: The thyroid is normal in size. There is diffuse hyperemia of thethyroid. Right thyroid lobe: 5.4 x 2.0 x 1.3 cm Left thyroid lobe: 5.7 x 1.8 x 2.1 cm Isthmus: 2 mm Nodule 1: Location: Right lower . Size: 2.0 cm craniocaudal x 1.7 cm transverse x 1.3 cm AP Composition: Mixed cystic and solid (1) Echogenicity: Hypoechoic (2) Shape: Not taller than wide (0) Margins: Smooth (0) Echogenic foci: None (0) ACR TI-RADS total points: 3 ACR TI-RADS risk category: TR3 (3 points) ACR TI-RADS recommendation: Follow-up US in 1 year Nodule 2: Location: Right upper . Size: 1.8 cm craniocaudal x 1.5 cm transverse x 0.8 cm AP Composition: Mixed cystic and solid (1) Echogenicity: Isoechoic (1) Shape: Not taller than wide (0) Margins: Smooth (0) Echogenic foci: None (0) ACR TI-RADS total points: 2 ACR TI-RADS risk category: 2 ACR TI-RADS recommendation: No further follow-up Nodule 3: Large nodule replacing the majority of the left mid thyroid parenchyma, not measured by hospital secretary. Location: Left mid to lower . Size: 2.0 cm craniocaudal x 1.6 cm transverse x 1.6 cm AP Composition: Solid/almost completely solid (2) Echogenicity: Isoechoic (1) Shape: Not taller than wide (0) Margins: Ill-defined (0) Echogenic foci: Macrocalcifications (1) ACR TI-RADS total points: 4 ACR TI-RADS risk category: TR4 (4-6 points) ACR TI-RADS recommendation: US-guided fine needle aspiration IMPRESSION: 1.A 2.0 cm TR 3 nodule (nodule 3) in the left mid/lower thyroid lobewhich meets criteria for ultrasound-guided fine-needle aspiration. 2.Recommendations for TR 3 and TR 2 nodules as above. ACR TI-RADS recommendations TR5 (>=7 points) (risk of malignancy > 20%) >=1 cm: FNA 0.5-0.9 cm: follow-up US every year for 5 years <0.5 cm: no further evaluation TR4 (4-6 points) (risk of malignancy 5-20%) >=1.5 cm: FNA 1-1.4 cm: follow-up US in 1, 2, 3, and 5 years <1.0 cm: no further evaluation TR3 (3 points) (risk of malignancy 2-5%) >=2.5 cm: FNA 1.5-2.4 cm: follow-up US in 1, 3, and 5 years <1.5 cm: no further evaluation TR2 (2 points) and TR1 (0 points) (risk of malignancy < 2%) No FNA or follow-up US > Dictated by Raul Smith DO (Director Of Marketing Analytics) I, John Fernandez MD have personally reviewed and interpreted this examination/study. > Interpreting Provider: John Fernandez MD on 08/19/2023 8:37 PM Disha Brito MD US ORDERABLES Care Teams Emr Specialist Relationship Specialty Start Date End Date Vipin Gutierrez MD [address] [place] [id number] PCP - General Internal Medicine 07/24/23
== END 2024-05-09 12:49 | disposition home or self-care (01) ==
PROVIDERS: PCP Emergency Medicine; Visit Provider Internal Medicine
DX: E04.2 Nontoxic multinodular goiter (principal); M80.00XD Age-related osteoporosis with current pathological fracture, unspecified site, subsequent encounter for fracture with routine healing; E11.9 Type 2 diabetes mellitus without complications
CPT/HCPCS: 10005; 10006; 88172; 88173; 88177; 88305

== ENCOUNTER 2024-05-21 10:57 | Outpatient (CLI) | payer OTHER, SELFPAY ==
[2024-05-21 11:12] LABS: Basophils Absolute Auto 0.1 K/mm3 (0.0-0.1); Eosinophils Absolute Auto 0.1 K/mm3 (0-0.3); Eosinophils Percent Auto 2.2 % (0-4.4); Hematocrit 34.5 % (37.0-47.0); Hemoglobin 11.3 g/dL (12.0-15.0); Immature Granulocyte Absolute 0.03 K/mm3 (0.00-0.031); Immature Granulocyte Percent A 0.6 % (0-0.5); Lymphocytes Absolute Auto 0.88 K/mm3 (0.9-3.2); Lymphocytes Percent Auto 17.7 % (18.3-44.2); Mean Corpuscular HGB Conc 32.8 g/dl (32-36); Mean Corpuscular Hemoglobin 35.6 pg (26-34); Mean Corpuscular Volume 108.8 fl (80-100); Mean Platelet Volume 12.2 fl (7.4-10.4); Monocytes Absolute Auto 0.5 K/mm3 (0.1-0.6); Neutrophils Absolute Auto 3.5 K/mm3 (1.3-6.7); Neutrophils Percent Auto 69.5 % (45.5-73.1); Platelet Count Result 331 k/mm3 (150-375); Red Blood Count 3.17 M/mm3 (4.2-5.4)
[2024-05-21 11:17] LABS: Platelet Estimate Adequate (Adequate); Schistocytes None Seen
[2024-05-21 11:21] LABS: Anisocytosis 2+; Atypical Lymphocytes Present; Ovalocytes 1+
[2024-05-21 14:39] LABS: Alanine Aminotransferase 14 U/L (6-35); Albumin Level 4.4 g/dL (3.5-5.1); Alkaline Phosphatase 79 U/L (38-126); Anion Gap 10 mmol/L (4-12); Aspartate Amino Transferase 16 U/L (14-36); Bilirubin,Total 0.7 mg/dL (0.2-1.3); Blood Urea Nitrogen 11 mg/dL (7-17); Calcium 9.7 mg/dL (8.4-10.2); Carbon Dioxide 25 mmol/L (22-30); Chloride 104 mmol/L (98-107); Estimated Glomerular Filt Rate > 60; Glucose 227 mg/dL (65-110); Potassium 4.7 mmol/L (3.4-5.0); Sodium 139 mmol/L (137-145)
[2024-05-21 14:40] LABS: Iron 172 ug/dL (37-170)
[2024-05-21 15:00] LABS: Percent Iron Saturation 46 % (20-50)
[2024-05-21 15:55] LABS: Folic Acid 17.1 ng/mL (2.76->20)
== END 2024-05-21 10:58 | disposition home or self-care (01) ==
LOC: ANHLAB 10:57
PROVIDERS: PCP Emergency Medicine; Visit Provider Internal Medicine Hematology & Oncology
DX: D64.9 Anemia, unspecified (principal)
CPT/HCPCS: 36415; 80053; 82607; 82746; 83540; 83550; 85025

== ENCOUNTER 2024-06-18 08:17 | Outpatient (CLI) | payer OTHER, SELFPAY ==
--- NOTE | ~2024-06-18 | MM_ITS ---
EXAMINATION: MM screening armen BI w nidhi HISTORY: Screening TECHNIQUE: Craniocaudal and mediolateral oblique 3-D tomosynthesis images were obtained and synthetic 2-D images were generated. CAD analysis was submitted and interpreted. COMPARISON: Comparison to multiple prior studies sequentially, with oldest reviewed study dated 12/19. BREAST PARENCHYMAL COMPOSITION: Not dense: There are scattered areas of fibroglandular density. FINDINGS: There is no evidence of suspicious mass, calcification, or architectural distortion to sugg est malignancy in either breast. There has been no suspicious interval change. IMPRESSION: 1. No mammographic evidence of malignancy. 2. Recommend routine screening mammography in one year. BI-RADS Category 1: Negative Reviewed, dictated and finalized at location A.
--- OUTSIDE RECORDS SUMMARY | 2024-06-18 08:23 | XMS_ITS | Continuity of Care Document ---
Author Organization [facility] Address [id number] [place] [address] [address] [place] [address] Phone Care Team Providers Care Channel Cementer Name Role Phone John Calhoun DO Unavailable Unavailable Advance Directives Directive Yes / No Effective Date File Name No Information Encounters Encounter Description Practice Location Reason(s) For Visit Diagnoses Date Provider Providers Copied on Encounter [facility], [address] [place] [address] [address], [place], [place], [id number], [place] tel:[phone] [facility] No Information [employer] [address] [place], [address], [place]. tel: [phone] Family History Family Member Type Diagnosis Age [...]
--- OUTSIDE RECORDS SUMMARY | 2024-06-18 08:23 | XMS_ITS | Clinical Summary ---
Author Organization [facility] Address [address] [place] [place] [address] Care Team Providers Care Transportation Sales Consultant Name Role Phone Vipin Gutierrez MD Primary Care Provider [phone] Allergies Active Allergy Reactions Criticality Noted Date Comments Ciprofloxacin Itching Low 12/21/2021 Phlebitis to veins Medications metFORMIN (GLUCOPHAGE) 1,000 mg tablet 07/21/19 22 Active Farxiga 10 mg Tablet 08/04/19 22 Active simvastatin (ZOCOR) 10 mg tablet 08/31/19 22 Active alendronate (FOSAMAX) 70 mg tablet 07/20/19 22 Active Contour Next Test Strips Strip 07/04/19 22 Active CALCIUM CARBONATE-KALI MIN D3 ORAL Take by mouth. Act austen Veloz gladelfinag-yfgn,Pen 100 unit/mL (3 mL) pen syringe Inject by subcutaneous injection one time only. 08/18/19 24 Active ferrous sulfate (Iron) 325 mg (65 mg iron) tablet Take 325 mg by mouth daily. 05/12/19 24 Active gabapentin (NEURONTIN) 100 mg capsule Take 100 mg by mouth 3 times daily. Active Rybelsus 7 mg Tablet Take 1 Tablet by mouth daily. 09/05/19 24 Active CYANOCOBALAMIN , VITAMIN B-12, ORAL Take by mouth. 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 [address] [place] [address] Bran Pace MD 05/25/2024 External Device Data [facility] ABSTRACTION Provider, Abstract 05/24/2024 External Device Data [facility] ABSTRACTION Provider, Abstract 05/22/2024 External Device Data [facility] ABSTRACTION Provider, Abstract 05/21/2024 Orders Only [facility] Oncology and [facility] [address] [place] [address] Bran Pace MD 05/07/2024 External Device Data STL ABSTRACTION Provider, [...] Care Team (Late st Contact Info) Description 07/18/2024 10:00 AM CDT Office Visit [facility] Oncology and Hemat[facility] [address] [facility] [address] [place] [address] Bran Pace MD [address] [facility] [address] [place] [address] Health Maintenance Due Date Last Done Comments DTAP/TDAP/TD VACCINES (1 - Tdap) 10/02/1967 COLORECTAL SCREENING 1993 Colorectal Cancer Screening 1993 FIT-DNA Q 3 years 1993 FIT/FOBT Q 1 year 1993 Flex Sig/CT Colonography Q 5 years 1993 PNEUMOCOCCAL VACCINE 50+ YEARS (1 of 1 - PCV) 10/01/18 99 ZOSTER VACCINE (1 of 2) 1998 OSTEOPOROSIS SCREENING 2013 RSV VACCINE (60+ or ) (1 - 1-dose 75+ series) 10/02/2023 INFLUENZA VACCINE (#1) 2023 [place] Prev entative Visit/Annual Wellness Visit 03/20/2024 Procedures Procedure Name Priority Date/Time Associated Diagnosis Comments CBC WITH AUTODIFFERENTIAL Routine 2024 4:05 PM INSURANCE COUNSELOR from Last 3 Months Results * CBC WITH AUTODIFFERENTIAL (05/21/2024 4:05 PM INSURANCE COUNSELOR) Blood Bran Pace MD HEMATOLOGY ORDERABLES Final Res ult from Last 3 Months Insurance Care Teams Transportation Sales Consultant Relationship Specialty Start Date End Date Vipin Gutierrez MD [address] [place] [phone] PCP - General Internal Medicine 09/07/21
--- OUTSIDE RECORDS SUMMARY | 2024-06-18 08:23 | XMS_ITS | Clinical Summary ---
Author Organization [facility] Address [address] [facility] [place] [address] Care Team Providers Care Writer Name Role Phone Vipin Gutierrez MD Primary Care Provider [phone] Source Comments [facility],non-owned Affiliates and Associated Physician Practices is amultiple site organization consisting of ambulatory clinics and hospital sitesin [place], [place] and [place]. This disclosure is being madepursuant to the Care Everywhere program and may not contain all information available regarding this patient. Last updated 17.[facility] Allergies Active Allergy Reactions Criticality Noted Date [...] - COLON CA SCREENING 1948 MAMMOGRAM 1948 MEDICARE AWV 12 MONTHS 1948 HEPATITIS C SCREENING 09/27/1966 DTAP/TDAP/TD VACCINES (1 - Tdap) 10/02/1967 PNEUMOCOCCAL VACCINE 50+ (1 of 2 - PCV) 10/02/1967 ZOSTER VACCINE (1 of 2) 1998 Respiratory Syncytial Virus (RSV) Vaccine Pt: or over 60 yrs (1 - 1-dose 75+ series) 10/02/2023 COVID-19 VACCINE ( - 2023-2 5 season) 2023 INFLUENZA VACCINE (#1) 2023 DEPRESSION SCREENING 03/20/2024 HEPATITIS B VACCINE Aged Out No longe r eligible based on patient's age to complete this topic HIB VACCINE Aged Out No longer eligi ble based on patient's age to complete this topic HPV VACCINE Aged Out No longer eligi ble based on patient's age to complete this topic MENINGOCOCCAL (Group B) VACC INE SHARED DECISION-MAKING Aged Out No longer eligibl e based on patient's age to complete this topic MENINGOCOCCAL GROUPS A/C/Y/W VACCINE Aged Out No longer eligible b ased on patient's age to complete this topic Care Teams Writer Relationship Specialty Start Date End Date Vipin Gutierrez MD [address] [facility] [address] [place] [address] PCP - General Internal Medicine 07/24/23
--- OUTSIDE RECORDS SUMMARY | 2024-06-18 08:23 | XMS_ITS | Encounter Summary ---
Author Organization [facility] Address [address] [facility] [place] [address] Care Team Providers Care Desk Monitor Name Role Phone Vipin Gutierrez MD Primary Care Provider [phone] Encounter Details Date Type Department Care Team (Late st Contact Info) Description 07/24/2023 Telephone [facility] - Endocrinology [address] [place] [address], [place] [address] Disha Brito MD [address] [place] [address] [place] [id number] Social History Tobacco Use Types Packs/Day Years [...] records had been received. She's coming from [facility] and wants to make sure everythign is in order. Does she need refferal w notes since this was just schedueld? She added after I had typed info, she is being referred by her OBGYN who called office. There is no referring provider on appt. Thanks. Patient Call Back Number: [phone] documented in this encounter Plan of Treatment Not on file documented as of this encounter Visit Diagnoses Not on filedocumented in this encounter Care Teams Desk Monitor Relationship Specialty Start Date End Date Vipin Gutierrez MD [address] [place] [address] PCP - General Internal Medicine 07/24/23 documented as of this encounter
== END 2024-06-18 08:18 | disposition home or self-care (01) ==
PROVIDERS: PCP Emergency Medicine; Visit Provider Nurse Practitioner Women's Health
DX: Z12.31 Encounter for screening mammogram for malignant neoplasm of breast (principal)
CPT/HCPCS: 77063; 77067

== ENCOUNTER 2024-08-09 10:33 | Outpatient (CLI) | payer OTHER, SELFPAY ==
--- OUTSIDE RECORDS SUMMARY | 2024-08-09 10:37 | XMS_ITS | Clinical Summary ---
Author Organization [facility] Address [address] [facility] [place] [address] Care Team Providers Care Furnace Repair Mechanic Name Role Phone Vipin Gutierrez MD Primary Care Provider [phone] Source Comments [facility],non-owned Affiliates and Associated Physician Practices is amultiple site organization consisting of ambulatory clinics and hospital sitesin [place], [place], [place] and [place]. This disclosure is being madepursuant to the Care Everywhere program and may not contain all information available regarding this patient. Last updated 17.[facility] Allergies Active Allergy Reactions Criticality Noted Date Comments Ciprofloxacin Itching Low 12/21/2021 Phlebitis to veins Medications * Be aware that medications may not be up to date on this document. Always verify current medications with the patient. Farxiga 10 MG tablet Take 1 (one) tablet by mouth once daily 4 Active Eliquis 2.5 MG tablet Take 1 (one) tablet by mouth 2 times daily 4 Active simvastatin (Zocor) 10 MG tablet Take 1 (one) tablet by mouth every morning 4 Active metFORMIN (Glucophage) 1000 MG tablet TAKE 1 TABLET BY MOUTH TWICE A DAY WITH BREAKFAST AND DINNER 4 Active Social History Tobacco Use Types Packs/Day Years Used Date Smoking Tobacco: Never Assessed Comments Unknown Sex and Gender Information Value Date Recorded Sex Assigned at Not on file Legal Sex Female 12:10 PM CDT Gender Identity Not on file [...] VACCINE ( - 2023-2 5 season) 2023 DEPRESSION SCREENING 03/20/2024 INFLUENZA VACCINE (Season Ended) 2024 HEPATITIS B VACCINE Aged Out No [...] on patient's age to complete this topic Insurance [facility] MEDICARE Care Teams Furnace Repair Mechanic Relationship Specialty [place] [address] [place] [address] PCP - General Internal Medicine 07/24/23
--- OUTSIDE RECORDS SUMMARY | 2024-08-09 10:37 | XMS_ITS | Continuity of Care Document ---
Author Organization [facility] Address [address] [place] [address] [address] [place] [address] Phone Care Team Providers Care Purchasing Specialist Name Role Phone John Calhoun DO Unavailable Unavailable Advance Directives Directive Yes / No Effective Date File Name No Information Encounters Encounter Description Practice Location Reason(s) For Visit Diagnoses Date Provider Providers Copied [facility], [address] [place] [address] [address], [place], [place], [id number], [place] tel:[phone] [facility] No Information [employer] [address] [place], [address], [place]. tel: [phone] Family History Family Member Type Diagnosis Age At Onset No Information Payers Payer name Insurance type Covered green party ID Authoriza tion(s) No Information Social [...]
--- OUTSIDE RECORDS SUMMARY | 2024-08-09 10:37 | XMS_ITS | Encounter Summary ---
Author Organization [facility] Address [address] [place] [address] Care Team Providers Care Leadership Program Intern Name Role Phone Vipin Gutierrez MD Primary Care Provider [phone] Encounter Details Date Type Department Care Team (Late st Contact Info) Description 07/24/2023 Telephone [facility] - Endocrinology [address] [place] [address], [place] [address] Disha Brito MD [address] [place] [address] [place] [address] Social History Tobacco Use Types Packs/Day Years [...] records had been received. She's coming from [facility] and wants to make sure everythign is in order. Does she need refferal w notes since this was just schedueld? She added after I had typed info, she is being referred by her OBGYN who called office. There is no referring provider on appt. Thanks. Patient Call Back Number: [phone] documented in this encounter Plan of Treatment Not on file documented as of this encounter Visit Diagnoses Not on filedocumented in this encounter Care Teams Leadership Program Intern Relationship Specialty Start Date End Date Vipin Gutierrez MD [address] [place] [address] PCP - General Internal Medicine 07/24/23 documented as of this encounter
--- OUTSIDE RECORDS SUMMARY | 2024-08-09 10:37 | XMS_ITS | Clinical Summary ---
Author Organization [facility] Address [address] [facility] [facility] [address] Care Team Providers Care Horse Race Starter Name Role Phone Vipin Gutierrez MD Primary Care Provider [phone] Allergies Active Allergy Reactions Criticality Noted Date [...] B-12, ORAL Take by mouth. Acti ve apixaban (Eliquis) 2.5 mg tablet Take 1 tablet by mouth twice daily 60 Tablet 08/03/19 25 Active Eliquis 2.5 mg tablet Take 1 tablet by mouth twice daily 120 Tablet 06/04/19 25 025 Discontinued Active Problems Problem Noted Date Diagnosed Date Vitamin B 12 deficiency 06/01/2022 Acute saddle pulmonary embolism without acute co r pulmonale 09/07/2021 IPMN (intraductal papillary mucinous neoplasm) 0 09/07/2021 Encounters Date Type Department Care Team Description 08/08/2024 External Device Data STL ABSTRACTION Provider, Abstract 08/06/2024 External Device Data STL ABSTRACTION Provider, Abstract 08/02/2024 Refill [facility] Oncology and Hematology [facility] [address] [place] [address] Bran Pace MD 07/10/2024 Telephone [facility] [address] [facility] [place] [address] Prakash Lopes Schedule 2y FU 07/02/2024 Telephone [facility] [address] [facility] [place] [address] Prakash Lopes Schedule FU 06/05/2024 External Device Data STL ABSTRACTION Provider, Abstract 06/01/2024 Refill [facility] Oncology and Hematology [place] [address] [place] [address] Bran Pace MD 05/25/2024 External Device Data STL ABSTRACTION Provider, Abstract 05/24/2024 External Device Data STL ABSTRACTION Provider, Abstract 05/22/2024 External Device Data STL ABSTRACTION Provider, Abstract 05/21/2024 Orders Only [facility] Oncology and Hematology [facility] [address] [place] [address] Bran Pace MD from Last 3 Months Family History Medical [...] Care Team (Late st Contact Info) Description 08/13/2024 11:00 AM CDT Office Visit [facility] Oncology and Hematology - [place] [address] [place] [address] [address] [place] [address] Bran Pace MD [address] [facility] [address] [place] [address] 10/03/2024 10:30 AM CDT Office Visit [facility] [place] [address] [facility] [place] [address] Mara Vu PA-C [address] [facility] [address] [place] [address] Health Maintenance Due Date Last Done Comments [...] 10/02/2023 INFLUENZA VACCINE (#1) 2023 [place] Prev entative Visit/Annual Wellness Visit 03/20/2024 Procedures Procedure Name Priority Date/Time Associated Diagnosis Comments CBC WITH AUTODIFFERENTIAL Routine 2024 4:05 PM TANKAGE SUPERVISOR from Last 3 Months Results * CBC WITH AUTODIFFERENTIAL (05/21/2024 4:05 PM TANKAGE SUPERVISOR) Blood Bran Pace MD HEMATOLOGY ORDERABLES Final Res ult from Last 3 Months Insurance Care Teams Horse Race Starter Relationship Specialty Start Date End Date Vipin Gutierrez MD [address] [place] [address] PCP - General Internal Medicine 09/07/21
--- OUTSIDE RECORDS SUMMARY | 2024-08-09 10:37 | XMS_ITS | Encounter Summary ---
Author Organization [facility] Address [address] [place] [address] Care Team Providers Care Fire Hazard Inspector Name Role Phone Vipin Gutierrez MD Primary Care Provider [phone] Encounter Details Date Type Department Care Team (Late st Contact Info) Description 08/08/2024 External Device Data STL ABSTRACTION [...] Description 08/13/2024 11:00 AM CDT Office Visit [facility] Oncology and Hematology - [place] [address] [place] [address] [facility] [address] [place] [address] Bran Pace MD [address] [facility] [address] [place] [address] 10/03/2024 10:30 AM CDT Office Visit [facility] Surgical Specialists [facility] [address] [facility] [place] [address] Mara Vu PA-C [address] [facility] [address] [place] [id number] documented as of this encounter Visit Diagnoses Not on filedocumented in this encounter Care Teams Fire Hazard Inspector Relationship Specialty Start Date End Date Vipin Gutierrez MD [address] [facility] [address] [place] [address] PCP - General Internal Medicine 09/07/21 documented as of this encounter
[2024-08-09 11:05] LABS: Basophils Absolute Auto 0.1 K/mm3 (0.0-0.1); Basophils Percent Auto 1.4 % (0.2-1.2); Eosinophils Absolute Auto 0.3 K/mm3 (0-0.3); Eosinophils Percent Auto 4.4 % (0-4.4); Hemoglobin 10.3 g/dL (12.0-15.0); Immature Granulocyte Absolute 0.04 K/mm3 (0.00-0.031); Immature Granulocyte Percent A 0.7 % (0-0.5); Lymphocytes Absolute Auto 0.93 K/mm3 (0.9-3.2); Lymphocytes Percent Auto 15.9 % (18.3-44.2); Mean Corpuscular HGB Conc 31.2 g/dl (32-36); Mean Corpuscular Hemoglobin 34.8 pg (26-34); Mean Corpuscular Volume 111.5 fl (80-100); Mean Platelet Volume 12.3 fl (7.4-10.4); Monocytes Absolute Auto 0.5 K/mm3 (0.1-0.6); Monocytes Percent Auto 8.5 % (2.6-8.5); Neutrophils Absolute Auto 4.1 K/mm3 (1.3-6.7); Neutrophils Percent Auto 69.1 % (45.5-73.1); Platelet Count Result 320 k/mm3 (150-375); Red Blood Count 2.96 M/mm3 (4.2-5.4); Red Cell Distribution Width 18.8 % (11.5-14.5); White Blood Count 5.9 K/mm3 (4.5-10.0)
[2024-08-09 11:11] LABS: Platelet Estimate Adequate (Adequate); Schistocytes None Seen
[2024-08-09 11:12] LABS: Anisocytosis 1+
[2024-08-09 11:13] LABS: Ovalocytes 1+
[2024-08-09 11:57] LABS: Alanine Aminotransferase 14 U/L (6-35); Albumin Level 4.4 g/dL (3.5-5.1); Alkaline Phosphatase 65 U/L (38-126); Anion Gap 11 mmol/L (4-12); Aspartate Amino Transferase 25 U/L (14-36); Bilirubin,Total 0.5 mg/dL (0.2-1.3); Blood Urea Nitrogen 16 mg/dL (7-17); Calcium 9.3 mg/dL (8.4-10.2); Carbon Dioxide 24 mmol/L (22-30); Chloride 107 mmol/L (98-107); Estimated Glomerular Filt Rate > 60; Glucose 240 mg/dL (65-110); Potassium 4.4 mmol/L (3.4-5.0); Sodium 142 mmol/L (137-145)
[2024-08-09 12:00] LABS: Iron 101 ug/dL (37-170)
[2024-08-09 12:11] LABS: Percent Iron Saturation 31 % (20-50)
[2024-08-09 13:03] LABS: Folic Acid 14.7 ng/mL (2.76->20)
== END 2024-08-09 10:34 | disposition home or self-care (01) ==
LOC: ANHLAB 10:34
PROVIDERS: PCP Emergency Medicine; Visit Provider Internal Medicine Hematology & Oncology
DX: D64.9 Anemia, unspecified (principal)
CPT/HCPCS: 36415; 80053; 82607; 82746; 83540; 83550; 85025

== ENCOUNTER 2024-09-12 01:05 | Day surgery (SDC) | payer OTHER, SELFPAY ==
--- NOTE | ~2024-09-12 | BM_ITS ---
EXAMINATION: CCL bone marrow asp w bx diag ORDER COMPLETED DATE: 09/12/2024 09:43 INDICATION: Chronic ischemia TECHNIQUE: A time-out was performed to verify the patient's name, date of , and procedure to b e performed. The procedure including the risks and benefits was discussed with the patient. Risks dis cussed included bleeding, infection, nerve injury and allergic reaction. The patient understood the r isks and agreed to proceed. The skin overlying the right posterior iliac spine was prepped and draped in usual sterile fashion. Anesthetic was administered with 1% lidocaine subcutaneously. Moderate co nscious sedation was achieved with 50 mcg fentanyl IV. An 11 gauge needle was inserted into the right ilium with fluoroscopic guidance. Bone marrow was aspirated. An 8 gauge needle was then inserted int o the right ilium with fluoroscopic guidance. A core bone marrow biopsy was obtained. The needle was removed and the entry site was cleaned and dressed. There were no immediate complications. A total o f 8 fluoroscopic images were recorded. Fluoroscopy exposure time was 0.1 minutes. Total DAP was 61.8 mGycm^2. FINDINGS: Real-time fluoroscopy demonstrates the biopsy needle tip overlying the right posterior karin c spine. IMPRESSION: 1. Successful fluoroscopic guided bone marrow aspiration. 2. Successful fluoroscopic guided bone marrow biopsy. Reviewed, dictated and finalized at location A.
[2024-09-12 08:05] VITALS: BP 129/52; PULSE 80; RESP 16; TEMP 36.6; O2SAT 100; BMI 17.2
[2024-09-12 08:27] LABS: Basophils Absolute Auto 0.1 K/mm3 (0.0-0.1); Basophils Percent Auto 1.6 % (0.2-1.2); Eosinophils Absolute Auto 0.2 K/mm3 (0-0.3); Eosinophils Percent Auto 4.8 % (0-4.4); Hematocrit 33.5 % (37.0-47.0); Hemoglobin 10.5 g/dL (12.0-15.0); Immature Granulocyte Absolute 0.03 K/mm3 (0.00-0.031); Immature Granulocyte Percent A 0.7 % (0-0.5); Lymphocytes Absolute Auto 0.82 K/mm3 (0.9-3.2); Lymphocytes Percent Auto 18.8 % (18.3-44.2); Mean Corpuscular HGB Conc 31.3 g/dl (32-36); Mean Corpuscular Hemoglobin 34.5 pg (26-34); Mean Corpuscular Volume 110.2 fl (80-100); Mean Platelet Volume 11.7 fl (7.4-10.4); Monocytes Absolute Auto 0.4 K/mm3 (0.1-0.6); Monocytes Percent Auto 8.7 % (2.6-8.5); Neutrophils Absolute Auto 2.9 K/mm3 (1.3-6.7); Neutrophils Percent Auto 65.4 % (45.5-73.1); Platelet Count Result 325 k/mm3 (150-375); Red Blood Count 3.04 M/mm3 (4.2-5.4); White Blood Count 4.4 K/mm3 (4.5-10.0)
[2024-09-12 08:45] LABS: Prothrombin Time 13.5 Seconds (11.1-14.7)
[2024-09-12 08:49] LABS: Platelet Estimate Adequate (Adequate)
[2024-09-12 08:50] LABS: Giant Platelets Present; Ovalocytes 1+; Schistocytes None Seen
--- NOTE | 2024-09-12 09:10 | P.SEDATION_ITS ---
Moderate Sedation Note-Pt Data Patient Data Diagnosis: anemia Present Complaint: anemia Procedure to be performed/Plan: bone marrow biopsy Allergies Allergy/AdvReac Type Severity Reaction Status Date / Time ciprofloxacin Allergy Intermediate Other Verified 09/12/24 08:01 Home Medications ?Medication ?Instructions ?Recorded ?Confirmed ?Type cholecalciferol (vitamin D3) 50 2,000 unit PO DAILY 04/08/19 09/11/24 History mcg (2,000 unit) capsule ferrous sulfate 325 mg (65 mg 325 mg PO DAILY 03/28/23 09/11/24 History iron) tablet cyanocobalamin (vitamin B-12) 5,000 mcg PO DAILY 05/12/23 09/11/24 History 5,000 mcg capsule Rybelsus 7 mg tablet (semaglutide) 7 mg PO DAILY #90 tabs 03/04/24 09/12/24 Rx blood sugar diagnostic (OneTouch #100 ea 03/28/24 06/18/24 Rx Verio test strips) blood-glucose meter (OneTouch #1 ea 03/28/24 06/18/24 Rx Verio Reflect Meter) apixaban 2.5 mg tablet (Eliquis) 2.5 mg PO BID 04/02/24 09/11/24 History simvastatin 10 mg tablet See Rx Instructions .Route 05/08/24 09/11/24 Rx .COMPLEX #90 tabs Farxiga 10 mg tablet See Rx Instructions .Route 06/06/24 09/11/24 Rx (dapagliflozin propanediol) .COMPLEX #90 tabs insulin glargine 100 unit/mL (3 15 unit (0.15 mL) subcut QAM #15 mL 07/30/24 09/12/24 Rx mL) subcutaneous pen (Lantus Solostar U-100 Insulin) gabapentin 300 mg capsule See Rx Instructions .Route 08/13/24 09/12/24 Rx .COMPLEX #270 caps metformin 1,000 mg tablet See Rx Instructions .Route 08/19/24 09/11/24 Rx .COMPLEX #180 tabs pen needle, diabetic 29 gauge x #100 ea 09/09/24 Rx 1/2 Sedation/Anesthesia: No previous sedation/anesthesia problems (including family history). [facility] Past Medical History Medical History Bilateral pulmonary embolism Deep vein thrombosis of left lower limb Trigger finger, right middle finger Right rotator cuff tendonitis Painful urination Lesion of pancreas Liver cyst Elevated troponin Hypertension Type 2 diabetes mellitus Dyslipidemia Osteopenia of multiple sites Vitamin D deficiency Surgical History Surgical History History of toe surgery Repair of left 5th toe fracture. History of left breast biopsy Microcalcifications on mammogram. Breast biopsy benign, per patient report. Family History Family History Mother Family history of cardiovascular disease Family history of diabetes mellitus in first degree relative Hx of CABG Sibling Family history of cardiovascular disease Pulmonary embolism Father Family history of lung cancer, Onset Age: 67 Unknown Asthma Neuropathy Social History Social History Social History: Surrogate decision maker: Felicitas Ahmadi (daughter) or Sydney Hayes (granddaughter). Code status: Full code. Smoking packs per day: 0.5 Smoking cigarettes per day: 10.0 Years smoked: 30 Smoking pack-years: 15.00 Smoking status: Current some day smoker Alcohol intake: never Substance use: never Substance use type: does not use Do You Feel Safe in your Home?: Yes Lack of Transportation: No Lack of Food: Never True Current Housing: I Have Housing Concerned About Future Housing: No Difficulty Paying Gas/Electric Bills: No Difficulty Paying for Meds: No Currently Unemployed: No Education: High School Diploma/GED Difficulty w/ Childcare or Family Care: No Additional living arrangements comments: x 3 years. Granddaughter lives with her. Occupation/Education: retired Additional occupation/education comments: Works 3 days a week at [employer]. Gender identity (if verbalized by the patient): Female Spiritual care concerns: No Mod Sed Physical Exam Physical Exam Pre Procedural Exam: Normal: Throat, Lungs, Heart Rate and Heart Rhythm and Variation: Appearance (frail) Hours since solid foods: 17 Hours since liquid intake: 17 Mallampati Classification: class III Internal Medicine - PN: Obj Da Vital Signs Vital Signs: Vital Signs - 24 hr 09/12/24 08:05 Temperature 97.9 F Pulse Rate 80 Respiratory Rate 16 Blood Pressure 129/52 L Pulse Oximetry 100 Oxygen Delivery Room Air Labs 09/12/24 08:00 Labs: Laboratory Results - last 24 hr 09/12/24 08:00 WBC 4.4 L RBC 3.04 L Hgb 10.5 L Hct 33.5 L MCV 110.2 H MCH 34.5 H MCHC 31.3 L RDW 19.0 H Plt Count 325 MPV 11.7 H Immature Gran % (Auto) 0.7 H Neut % (Auto) 65.4 Lymph % (Auto) 18.8 Long % (Auto) 8.7 H Eos % (Auto) 4.8 H Baso % (Auto) 1.6 H Lymph # (Auto) 0.82 L Long # (Auto) 0.4 Eos # (Auto) 0.2 Baso # (Auto) 0.1 Abs Immat Gran (auto) 0.03 Absolute Neuts (auto) 2.9 Absolute Nucleated RBC 0.000 Band Neutrophils % Not Reportable Nucleated RBC % 0.0 Platelet Estimate Adequate Giant Platelets Present Ovalocytes 1+ Schistocytes None seen PT 13.5 INR 1.0 ASA Classification/Sedation ASA Classification/Sedation ASA Class: II Emergent: No Risks: Risks, benefits and alternatives explained and patient/family accepted plan for sedation. Patient re-evaluated immediately prior to sedation.
--- NOTE | 2024-09-12 09:23 | BM_PTH ---
PATIENT: Dara Hayes LOC: [facility] ER#:[id number] AGE/SX: 73/F ROOM: RE09/12/[address]: Martin Sapp MD : [id number] BED: DIS: 09/12/2024 SPEC #: [id number] RECD: 09/12/24 10:14 STATUS: GUS REQ #: [id number] MAXINE: 09/12/24 09:[address]: Bran Pace DEPT: [facility] Bone Marrow RECD BY: Pallavi Hernandez ENTERED: 09/12/24 10:16 SP TYPE: Bone Marro CYNTHIA DR: MD Vipin Lake MD Tissues: A - Bone Marrow Aspiration B - Bone Marrow Biopsy Procedures: Unstained Slides Hematoxylin and Eosin Stain Gross and Microscopic Level 4 Bone Marrow Smear Decalcification Iron Stain
[2024-09-12 09:40] VITALS: BP 132/57; PULSE 78; RESP 17; O2SAT 98
[2024-09-12 09:45] VITALS: BP 121/60; PULSE 73; RESP 16; O2SAT 96
[2024-09-12 10:00] VITALS: BP 123/53; PULSE 72; RESP 17; O2SAT 97
[2024-09-12 10:15] VITALS: BP 130/64; PULSE 62; RESP 15; O2SAT 100
[2024-09-12 10:30] VITALS: BP 128/62; PULSE 72; RESP 18; O2SAT 100
== END 2024-09-12 10:36 | disposition home or self-care (01) ==
PROVIDERS: PCP Emergency Medicine; Referring Provider Radiology Diagnostic Radiology; Visit Provider Radiology Diagnostic Radiology
DX: D64.9 Anemia, unspecified (principal)
CPT/HCPCS: 36415; 38222; 85025; 85610; 88305; 88311; 88313; J2250; J3010

== ENCOUNTER 2024-09-17 07:47 | Outpatient (CLI) | payer OTHER, SELFPAY ==
--- NOTE | ~2024-09-17 | MR_ITS ---
MRI of the abdomen: Clinical indication: Neoplasm of unspecified behavior. Technique: Coronal SSFSE ARC, WATER:coronal LAVA-FLEX, Coronal 2D FIESTA FatSat, Axial SSFSE BH ARC, Axial 3D DualEcho BH, Axial SSFSE-IR, Axial DWI b=500, Axial 2D FIESTA FatSat, pre and dynamic postco ntrast Axial LAVA ARC, postcontrast Coronal In and Opposed phase LAVA FLEX . Following intravenous ad ministration of 9 cc MultiHance gadolinium, T1-weighted fat-sat imaging was performed in the axial an d coronal planes. COMPARISON: 09/30/2022 Findings: There is layering gallbladder sludge. The common bile duct is normal in course and caliber. No filling defects are seen within the CBD. No evidence of intrahepatic biliary ductal dilatation. T he pancreatic duct is normal in size. The breast serial small cystic lesions in the pancreas are pres ent. Stable small cystic lesion at the dome of liver. Spleen and adrenals appear normal. Probable renal cysts are present. The aorta and the paraaortic regions appear normal. No abnormal postcontrast enhancement identified. Impression: Stable small cystic pancreatic lesions. Stable parapelvic renal cysts. Gallbladder sludge. Reviewed, dictated and finalized at location . Impression: Stable small cystic pancreatic lesions. Stable parapelvic renal cysts. Gallbladder sludge.
--- OUTSIDE RECORDS SUMMARY | 2024-09-17 07:52 | XMS_ITS | Clinical Summary ---
Author Organization [facility] Emani Lovett Address [address] [place] [address] Care Team Providers Care Ocean Import Representative Name Role Phone Vipin Gutierrez MD Primary Care Provider [phone] Allergies Active Allergy Reactions Criticality Noted Date Comments Ciprofloxacin Itching Low 12/21/2021 Phlebitis to veins Medications metFORMIN (GLUCOPHAGE) 1,000 mg tablet 07/21/19 22 Active Farxiga 10 mg Tablet 08/04/19 22 Active simvastatin (ZOCOR) 10 mg tablet 08/31/19 22 Active Contour Next Test Strips Strip 07/04/19 22 Active CALCIUM CARBONATE-KALI MIN D3 ORAL Take by mouth. Act nemo [place],insuli n glarg-yfgn,Pen 100 unit/mL (3 mL) pen syringe [...] B-12, ORAL Take by mouth. Acti ve Lantus Solostar U-100 Insulin 100 unit/mL (3 mL) solution for injection Inject 15 Units by subcutaneous injection daily with breakfast. 08/02/19 25 Active apixaban (Eliquis) 2.5 mg tablet Take 1 tablet by mouth twice daily 60 Tablet 2 09/03/19 25 Active apixaban (Eliquis) 2.5 mg tablet Take 1 tablet by mouth twice daily 60 Tablet 08/03/19 25 025 Discontinued Active Problems Problem Noted Date Diagnosed Date Vitamin B 12 deficiency 06/01/2022 Acute saddle pulmonary embolism without acute co r pulmonale 09/07/2021 IPMN (intraductal papillary mucinous neoplasm) 0 09/07/2021 Encounters Date Type Department Care Team Description 09/10/2024 External Device Data STL ABSTRACTION Provider, Abstract 09/03/2024 External Device Data STL ABSTRACTION Provider, Abstract 08/31/2024 Refill [facility] Oncology and Hematology [facility] [address] [place] [address] Bran Pace MD 08/27/2024 Abstract [facility] Surgical Spec [place] [address] [facility] [address] [place] [address] Polly Marinelli RN 08/13/2024 11:00 AM CDT Office Visit [facility] Oncology and Hematology [facility] [address] [place] [address] Bran Pace MD Chronic anemia (Primary Dx) 08/13/2024 External Device Data STL ABSTRACTION Provider, Abstract 08/13/2024 Orders Only [facility] Oncology and [facility] [address] [place] [address] Bran Pace MD 08/08/2024 External Device Data STL ABSTRACTION Provider, Abstract 08/07/2024 External Device Data STL ABSTRACTION Provider, Abstract 08/06/2024 External Device Data STL ABSTRACTION Provider, Abstract 08/02/2024 Refill [facility] Oncology and Hematology [place] [address] [place] [address] Bran Pace MD 07/10/2024 Telephone [facility] Surgical Specialists [place] [phone] [facility] [address] [place] [address] Prakash Lopes Schedule 2y FU 07/02/2024 Telephone [facility] Surgical Specialists [facility] [address] [facility] [address] [place] [address] Prakash Lopes Schedule FU from Last 3 Months Family History Medical [...] Sign Reading Time Taken Comments Blood Pressure 142/65 08/13/2024 11:05 AM CDT Pulse 80 08/13/2024 11:03 AM CDT Temperature 36.4 C (97.6 F) 08/13/2024 11:03 AM CDT Respiratory Rate 15 08/13/2024 11:03 AM CDT Oxygen Saturation 95% 08/13/2024 11:03 AM CDT Inhaled Oxygen Concentration - - Weight 47.4 kg (104 lb 6.4 oz) 08/13/2024 11:03 AM CDT Height 162.6 cm (5' 4) 10/11/2022 9:05 AM CDT Body Mass Index 17.92 10/11/2022 9:05 AM CDT Plan of Treatment Upcoming Encounters Date Type Department Care Team (Late st Contact Info) Description 09/18/2024 4:30 PM CDT Telephone Check Up [facility] Oncology and Hematology - [place] [address] [place] [address] Bran Pace MD [address] [facility] [address] [place] [address] 10/03/2024 10:30 AM CDT Office Visit [facility] Surgical Specialists [facility] [address] [facility] [address] [place] [address] Mara Vu PA-C [address] [facility] [address] [place] [address] Health Maintenance Due Date Last [...] 75+ series) 10/02/2023 INFLUENZA VACCINE (#1) 2023 Procedures Procedure Name Priority Date/Time Associated Diagnosis Comments COMPREHENSIVE METABOLIC PANEL Routine 08/09/2024 10:38 AM CDT from Last 3 Months Results * COMPREHENSIVE METABOLIC PANEL (08/09/2024 10:38 AM CDT) Blood Bran Pace MD CHEMISTRY ORDERABLES Final Resu lt from Last [address] [place] [address] [address] [facility] MCR Care Teams Ocean Import Representative Relationship Specialty Start Date End Date Vipin Gutierrez MD [address] [place] [address] PCP - General Internal Medicine 09/07/21
--- OUTSIDE RECORDS SUMMARY | 2024-09-17 07:52 | XMS_ITS | Encounter Summary ---
Author Organization [facility] Address [address] [facility] [place] [address] Care Team Providers Care Quality Control Auditor Name Role Phone Vipin Gutierrez MD Primary Care Provider [phone] Encounter Details Date Type Department Care Team (Late st Contact Info) Description 07/24/2023 Telephone [facility] - Endocrinology [address] [place] [address], [place] [address] Disha Brito MD [address] [place] [address] [place] [address] Social History Tobacco Use Types [...] records had been received. She's coming from [facility] and wants to make sure everythign is in order. Does she need refferal w notes since this was just schedueld? She added after I had typed info, she is being referred by her OBGYN who called office. There is no referring provider on appt. Thanks. Patient Call Back Number: [phone] documented in this encounter Plan of Treatment Not on file documented as of this encounter Visit Diagnoses Not on filedocumented in this encounter Care Teams Quality Control Auditor Relationship Specialty Start Date End Date Vipin Gutierrez MD [address] [place] [address] PCP - General Internal Medicine 07/24/23 documented as of this encounter
--- OUTSIDE RECORDS SUMMARY | 2024-09-17 07:52 | XMS_ITS | Encounter Summary ---
Author Organization [facility] Address [address] [place] [address] Care Team Providers Care Lead Sustainability Specialist Name Role Phone Vipin Gutierrez MD Primary Care Provider [phone] Encounter Details Date Type Department Care Team (Late st Contact Info) Description 09/13/2024 Lab Requisition [facility] - Pathology Lab [address] [place] [address] Jack Deras MD [address] [place] [address] Illness, unspecified Social History Tobacco Use Types Packs/Day Years Used Date Smoking Tobacco: Never Assessed Comments Unknown Sex and Gender Information Value Date Recorded Sex Assigned at Not on file Legal Sex Female 12:10 PM CDT Gender Identity Not on file Sexual Orientation Not on file documented as of this encounter Plan of Treatment Pending Results Name Type Priority Associated Diagnoses Date /Time BONE MARROW BIOPSY (STL) Pathology Cytology Routine Illness, unspecified 09/12/2024 9:23 AM CDT documented as of this encounter Visit Diagnoses Diagnosis Illness, unspecified documented in this encounter Care Teams Lead Sustainability Specialist Relationship Specialty Start Date End Date Vipin Gutierrez MD [facility] [facility] [address] [place] [address] PCP - General Internal Medicine 07/24/23 documented as of this encounter
--- OUTSIDE RECORDS SUMMARY | 2024-09-17 07:52 | XMS_ITS | Encounter Summary ---
Author Organization [facility] Address [address] [place] [address] Care Team Providers Care Socket Puller Name Role Phone Vipin Gutierrez MD Primary Care Provider [phone] Encounter Details Date Type Department Care Team (Late st Contact Info) Description 09/12/2024 Lab Requisition [facility] - Pathology Lab [address] [place] [id number] Jack Deras MD [address] [place] [address] Anemia, unspecified Social History Tobacco Use Types Packs/Day Years Used Date Smoking Tobacco: Never Assessed Comments Unknown Sex and Gender Information Value Date Recorded Sex Assigned at Not on file Legal Sex Female 12:10 PM CDT Gender Identity Not on file Sexual Orientation Not on file documented as of this encounter Plan of Treatment Not on file documented as of this encounter Procedures Procedure Name Priority Date/Time Associated Diagnosis Comments FLOW CYTOMETRY BONE MARROW Routine 09/12/2024 9:00 AM CDT Anemia, unspecified documented in this encounter Results * FLOW CYTOMETRY BONE MARROW (09/12/2024 9:00 AM CDT) Case Report Flow Cytometry Case: [id number] Authorizing Provider: Jack Deras Collected: 09/12/2024 09:00 AM MD Aba Ordering Location: [facility] - Received: 09/12/2024 12:41 PM Pathology Lab Pathologist: Duane Ricardo MD Specimen: Bone Marrow 09/12/2024 5:03 PM [facility] Final Diagnosis Bone marrow, flow cytometry: - Slightly increased CD34+ myeloblast population detected (~7% of overall events) 09/12/2024 5:03 PM [facility] at 1703 CDT Flow Cytometry Interpretation Viability: 93% B-cells: polytypic, kappa:lambda ratio 2:1 T-cells: not increased Blasts: detected, 7%, express CD33 (dim), CD117, HLA-DR, and CD7 (dim). CD13 appears negative. The significance of this increased myeloblast population is unclear. Bone marrow histology is pending. A bone marrow aspirate smear prepared from the flow cytometry specimen has been reviewed for quality improvement manager purposes. 09/12/2024 5:03 PM [facility] Flow Cytometry Results Differential Result Comment Flow Cell Count /uL 17,100 Total Viability % 93.0 Lymphocytes % 8 Dim CD45 Region % 18 Monocytes % 9 Granulocytes % 65 09/12/2024 5:03 PM [facility] Reason for test Anemia, unspecified 285.9 09/12/2024 5:03 PM [facility] Client Specimen ID # [id number] 09/12/2024 5:03 PM [facility] Number of markers 19 were performed. A-2 Flow CD10 A-3 Flow CD13 A-5 Flow CD20 A-11 Flow CD2 A-13 Flow CD14 A-16 Flow CD117 A-17 Flow CD11b A-18 Flow CD11c A-1 Flow CD5 A-4 Flow CD19 A-6 Flow CD33 A-7 Flow CD34 A-8 Flow CD45 A-12 Flow CD7 A-14 Flow CD56 A-15 Flow CD64 A-9 [place]+CD19+ A-10 Lambda+CD19+ A-19 Flow HLA-DR 09/12/2024 5:03 PM [facility] Pathologist Location at [facility] 09/12/2024 5:03 PM [facility] Disclaimer Test performed at [facility], [address] [place] [address], [address]. *The established laboratory minimum viability is 70%. Values below the minimum may result in the failure to find an abnormal population of cells. This test was developed and its performance characteristics determined by the Flow Cytometry Laboratory. It has not been cleared by the [place] Food and Drug Administration (FDA). The FDA has determined that such clearance or approval is not necessary. This test is used for clinical purposes. It should not be regarded as investigational or for research. This laboratory is regulated under the Clinical Laboratory Improvement Amendments of 1998 (CLIA) as a qualified to perform high complexity clinical testing. 09/12/2024 5:03 PM CDT [facility] Embedded Images 5:03 PM CDT [facility] Pathology/Cytolo gy BONE MARROW SPECIMEN / Unknown 09/12/2024 9:00 AM CDT 09/12/2024 12:41 PM CDT Jack Deras MD LAB - PATHOLOGY/CYT OLOGY ORDERABLES Final Result Performing Organization Address City/State/[facility] Co de Phone Number [facility] [address] [phone] documented in this encounter Visit Diagnoses Diagnosis Anemia, unspecified documented in this encounter Care Teams Socket Puller Relationship Specialty Start Date End Date Vipin Gutierrez MD [facility] [address] [place] [address] PCP - General Internal Medicine 07/24/23 documented as of this encounter
--- OUTSIDE RECORDS SUMMARY | 2024-09-17 07:52 | XMS_ITS | Clinical Summary ---
Author Organization [facility] Address [address] [facility] [place] [address] Care Team Providers Care Logger Name Role Phone Vipin Gutierrez MD Primary Care Provider [phone] Source Comments [facility],non-owned Affiliates and Associated Physician Practices is amultiple site organization consisting of ambulatory clinics and hospital sitesin [place], [place]. This disclosure is being madepursuant to the Care Everywhere program and may not contain all information available regarding this patient. Last updated 17.[facility] Allergies Active Allergy Reactions Criticality Noted Date [...] DAY WITH BREAKFAST AND DINNER 4 Active Encounters Date Type Department Care Team Description 09/13/2024 Lab Requisition [facility] - Pathology Lab [address] [place] [address] Jack Deras MD Illness, unspecified 09/12/2024 Lab Requisition [facility] - Pathology Lab [address] [place] [address] Jack Deras MD Anemia, unspecified from Last 3 Months Social History Tobacco Use Types Packs/Day Years [...] Tdap) 10/02/1967 PNEUMOCOCCAL VACCINE 50+ (1 of 1 - PCV) 1998 ZOSTER VACCINE (1 of 2) 1998 Respiratory [...] on patient's age to complete this topic Procedures Procedure Name Priority Date/Time Associated Diagnosis Comments FLOW CYTOMETRY BONE MARROW Routine 09/12/2024 9:00 AM CDT Anemia, unspecified from Last 3 Months Results * FLOW CYTOMETRY BONE MARROW (09/12/2024 9:00 AM CDT) Case Report Flow Cytometry Case: [id number] Authorizing Provider: Jack Deras Collected: 09/12/2024 09:00 AM MD Aba Ordering Location: [facility] - Received: 09/12/2024 12:41 PM Pathology Lab Pathologist: Duane Ricardo MD Specimen: Bone Marrow 09/12/2024 5:03 PM CDT [facility] Final Diagnosis Bone marrow, flow cytometry: - Slightly increased CD34+ myeloblast population detected (~7% of overall events) 09/12/2024 5:03 PM CDT [facility] at 1703 CDT Flow Cytometry Interpretation Viability: 93% B-cells: polytypic, kappa:lambda ratio 2:1 T-cells: not increased Blasts: detected, 7%, express CD33 (dim), CD117, HLA-DR, and CD7 (dim). CD13 appears negative. The significance of this increased myeloblast population is unclear. Bone marrow histology is pending. A bone marrow aspirate smear prepared from the flow cytometry specimen has been reviewed for quality consultant purposes. 09/12/2024 5:03 PM CDT [facility] Flow Cytometry Results Differential Result Comment Flow Cell Count /uL 17,100 Total Viability % 93.0 Lymphocytes % 8 Dim CD45 Region % 18 Monocytes % 9 Granulocytes % 65 09/12/2024 5:03 PM CDT [facility] Reason for test Anemia, unspecified 285.9 09/12/2024 5:03 PM CDT [facility] Client Specimen ID # [id number] 09/12/2024 5:03 PM T [facility] Number of markers 19 were performed. A-2 Flow CD10 A-3 Flow CD13 A-5 Flow CD20 A-11 Flow CD2 A-13 Flow CD14 A-16 Flow CD117 A-17 Flow CD11b A-18 Flow CD11c A-1 Flow CD5 A-4 Flow CD19 A-6 Flow CD33 A-7 Flow CD34 A-8 Flow CD45 A-12 Flow CD7 A-14 Flow CD56 A-15 Flow CD64 A-9 [place]+CD19+ A-10 Lambda+CD19+ A-19 Flow HLA-DR 09/12/2024 5:03 PM T [facility] Pathologist Location at [facility] 09/12/2024 5:03 PM T [facility] Disclaimer Test performed at [facility], [address] [place] [address], [facility]. *The established laboratory minimum viability is 70%. [...] high complexity clinical testing. 09/12/2024 5:03 PM T [facility] Embedded Images 5:03 PM T [facility] Pathology/Cytolo gy BONE MARROW SPECIMEN / Unknown 09/12/2024 9:00 AM CDT 09/12/2024 12:41 PM CDT Jack Deras MD LAB - PATHOLOGY/CYT OLOGY ORDERABLES Final Result [facility] [address] [place] [address]. [place] [address], [facility] [phone] from Last 3 Months Insurance [facility] MEDICARE Care Teams Logger Relationship Specialty Start Date End Date Vipin Gutierrez MD [address] [place] [id number] PCP - General Internal Medicine 07/24/23
--- OUTSIDE RECORDS SUMMARY | 2024-09-17 07:52 | XMS_ITS | Continuity of Care Document ---
Author Organization [facility] Address [address] [place] [address] [address] [place] [address] Phone Care Team Providers Care Manager Cath Lab Name Role Phone John Calhoun DO Unavailable Unavailable Advance Directives Directive Yes / No Effective Date File Name No Information Encounters Encounter Description Practice Location Reason(s) For Visit Diagnoses Date Provider Providers [facility] on [facility], [address] [place] [address] [address], [place], [place], [id number], [place] tel:[phone] [facility] No Information [facility] [place] [address] [place], [address], [place]. tel: [phone] Family History Family Member Type Diagnosis Age At Onset No Information Payers Payer name Insurance type Covered libertarian ID Authoriza tion(s) No Information Social History [...]
== END 2024-09-17 07:48 | disposition home or self-care (01) ==
PROVIDERS: PCP Emergency Medicine
DX: K86.2 Cyst of pancreas (principal); N28.1 Cyst of kidney, acquired; K82.8 Other specified diseases of gallbladder; D49.0 Neoplasm of unspecified behavior of digestive system
CPT/HCPCS: 74183; A9577

== ENCOUNTER 2024-10-31 11:16 | Outpatient (CLI) | payer OTHER, SELFPAY ==
[2024-10-31 11:34] LABS: Hematocrit 34.3 % (37.0-47.0); Hemoglobin 10.9 g/dL (12.0-15.0); Immature Granulocyte Percent A 0.7 % (0-0.5); Lymphocytes Absolute Auto 0.83 K/mm3 (0.9-3.2); Mean Corpuscular HGB Conc 31.8 g/dl (32-36); Mean Corpuscular Hemoglobin 34.9 pg (26-34); Mean Corpuscular Volume 109.9 fl (80-100); Nucleated Red Blood Cells Absolute Auto 0.000 K/mm3 (0.0-0.012); Nucleated Red Blood Cells Perc 0.0 % (0.0-0.2); Platelet Count Result 330 k/mm3 (150-375); Red Blood Count 3.12 M/mm3 (4.2-5.4); White Blood Count 5.4 K/mm3 (4.5-10.0)
--- OUTSIDE RECORDS SUMMARY | 2024-10-31 11:34 | XMS_ITS | Clinical Summary ---
Author Organization [facility] Address [address] [facility] [place] [address] Care Team Providers Care Executive Recruiter Name Role Phone Vipin Gutierrez MD Primary Care Provider [phone] Source Comments [facility],non-owned Affiliates and Associated Physician Practices is amultiple site organization consisting of ambulatory clinics and hospital sitesin [place], [place], [place] and [place]. This disclosure is being madepursuant to the Care Everywhere program and may not contain all information available regarding this patient. Last updated 17.[facility] Allergies Active Allergy Reactions Criticality Noted Date [...] Physician Group - Pathology Lab [address] [place] [address] Jack Deras MD Illness, unspecified 09/12/2024 Lab Requisition [facility] - Pathology Lab [address] [place] [address] Jack Deras MD Anemia, unspecified from Last [...] Last Done Comments BONE DENSITY TESTING 1950 MEDICARE AWV 12 MONTHS 1950 HEPATITIS C SCREENING 09/27/1966 DTAP/TDAP/TD VACCINES (1 - Tdap) 10/02/1967 PNEUMOCOCCAL VACCINE 50+ (1 of 1 - PCV) 1998 ZOSTER VACCINE (1 of 2) 1998 Respiratory Syncytial Virus (RSV) Vaccine Pt: or over 60 yrs (1 - 1-dose 75+ series) 10/02/2023 COVID-19 VACCINE ( - 2023-2 5 season) 2023 DEPRESSION SCREENING 03/20/2024 INFLUENZA VACCINE (#1) 2024 HEPATITIS B VACCINE Aged Out No [...] Procedure Name Priority Date/Time Associated Diagnosis Comments BONE MARROW BIOPSY (STL) Routine 09/12/2024 9:23 AM CDT Illness, unspecified FLOW CYTOMETRY BONE MARROW Routine 09/12/2024 9:00 AM CDT Anemia, unspecified from Last 3 Months Results * BONE MARROW BIOPSY (STL) (09/12/2024 9:23 AM CDT) Case Report Bone Marrow Patholog y Report Case: [id number] Authorizing Provider: Jack Deras Collected: 09/12/2024 09:23 AM MD Aba Ordering Location: [facility] - Received: 09/13/2024 03:31 PM Pathology Lab Pathologist: Aminata Mulligan MD Specimens: A) - Bone Marrow Clot B) - Bone Marrow Core 09/17/2024 3:52 PM CDT [facility] Final Diagnosis Bone marrow, iliac crest, core biopsy, clot section, and aspirate: - Hypercellular bone marrow (50% cellular) with erythroid and megakaryocytic dyspoiesis and hyperplasia (see comment) - No significant reticulin fibrosis (MF-0) - Decreased iron stores 09/17/2024 3:52 PM CDT [facility] at 1552 CDT AP Comment The patient is a 73-year-old woman with a history of leukopenia and macrocytic anemia. 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 The morphologic features could represent myelodysplastic neoplasm with low blasts and 5q deletion as the megakaryocytes are typical of this entity but are not entirely specific for such. Correlation with relevant cytogenetic, FISH, and next-generation sequencing data is needed to fully classify the patient's presumed myeloid neoplasm. Reactive etiologies of dyspoiesis should also be considered including nutritional deficiency (vitamin B12 and folate), heavy metal toxicity/deficiency (copper/zinc), infections, autoimmune disease, toxin exposure, or other reactive processes. 09/17/2024 3:52 PM CDT [facility] Peripheral Smear Description The patient's CBC performed at the time of the bone marrow biopsy shows a white count of 4400/mcL, hemoglobin 10.5 g/dL, hematocrit 33.5%, MCV 110.2 fL, and a platelet count of 325,000/mcL. The white cell differential shows 65.4% neutrophils, 18.8% lymphocytes, 8.7% monocytes, 4.8% eosinophils, 1.6% basophils, and 0.7% immature granulocytes. The absolute lymphocyte count is low at 820/mcL. Review of the peripheral blood smear confirms the CBC data. Mild leukopenia is present with a normal absolute neutrophil count and a decreased absolute lymphocyte count. The white cells have normal morphology overall. Circulating blasts are not identified. Red cells are macrocytic. A significant embers schistocytes histiocytes are not appreciated. The platelet count is within normal limits. There is moderate platelet anisocytosis, and occasional giant platelets are noted. 09/17/2024 3:52 PM [facility] Bone Marrow Aspirate Differential count (200 cells): 1.5% blasts, 46% maturing myeloid precursors, 47.5% erythroid progenitors, 0.5% monocytes, 2% eosinophils, 1% lymphocytes, 1.5% plasma cells. Specimen quality: suboptimal. Spicules: small. Trilineage Hematopoiesis: present. Myeloid:Erythroid ratio: decreased. Myeloid Maturation: normal. Erythroid Maturation: mildly dyspoietic characterized by macrocytic change, irregular nuclear contours. Megakaryocyte morphology: hypolobate. Megakaryocytes are enlarged with monolobate nuclei. Storage iron (by special stain): decreased. Sideroblastic iron (by special stain): no ring sideroblasts. 09/17/2024 3:52 PM [facility] Bone Marrow Core Biopsy and Clot Section Description Specimen quality: adequate with 2.0 cm of evaluable marrow. Cellularity: 50% Trilineage Hematopoiesis: present. Myeloid to Erythroid ratio: decreased. Myeloid maturation and localization: normal. Erythroid maturation and localization: normal. Megakaryocyte number: increased. Megakaryocyte distribution: small, loose clusters. Lymphoid aggregates: small. Bone trabeculae: normal. Blood vessels: normal. Other: no evidence of lymphoma, granulomata, or extrinsic tumor cells. Plasma cells: normal. Clot section marrow particles: numerous. Clot section morphology: similar to core biopsy. 09/17/2024 3:52 PM [facility] Flow Cytometry Summary Flow cytometry identified slightly increased CD34 positive myeloblasts (approximately 7% of total events), [id number] 09/17/2024 3:52 PM [facility] Clinical History Chronic anemia, vitamin B12 deficiency, IPMN 09/17/2024 3:52 PM [facility] Materials Received Received are 25 slides, 2 unstained slides, and 4 blocks labeled [id number] along with a copy of the outside pathology report[place] [address]. All original materials are returned to the referring institution, along with a copy of our final report. 09/17/2024 3:52 PM [facility] Microscopic Description Immunohistochemistry and/or special stains are performed on the core biopsy/clot section with reactive controls to further characterize the marrow. Immunohistochemistry stains are performed in addition to flow cytometry given the cellular heterogeneity marrow. CD34, a marker of blasts, highlights <5% of total cells in the core biopsy and clot section. CD3, CD5, and CD20 are performed on the clot section only to evaluate lymphoid aggregates. The lymphoid aggregates consist of an approximate equal proportion of B- and T-cells without significant aberrant CD5 expression by the B-cells consistent with benign aggregates. A reticulin stain of the core biopsy shows shows no significant reticulin fibrosis. An iron stain of the core biopsy shows decreased storage iron but this may be a consequence of decalcification. Iron stains of the clot sections also show decreased iron stores. 09/17/2024 3:52 PM [facility] Pathologist Location at [facility] 09/17/2024 3:52 PM [facility] Disclaimer The performance characteristics of all immunohistochemical and indirect immunofluorescence stains (if any) cited in this report were determined by the Histopathology Laboratory of [facility]. Some of these tests were developed by our own laboratory and have not been cleared or approved by the US Food and Drug Administration. The FDA does not require this test to go through premarket FDA review. These tests are used for clinical purposes. They should not be regarded as investigational or for research. This laboratory is certified under the Clinical Laboratory Improvement Amendments (CLIA) as qualified to perform high complexity clinical laboratory testing. This case has been personally reviewed and interpreted by the attending (teaching) pathologist. 09/17/2024 3:52 PM [facility] Embedded Images 09/17/2024 3:52 PM CDT [facility] Pathology/Cytology BONE MARROW SPECIMEN / Unknown 09/12/2024 9:23 AM CDT 09/13/2024 3:31 PM CDT Miscellaneous samples (specimen) BONE MARROW SPECIMEN / Unknown 09/12/2024 9:23 AM CDT 09/13/2024 3:31 PM CDT Jack Deras MD LAB - PATHOLOGY/CYT OLOGY ORDERABLES Final Result [facility] [address] [phone] * FLOW CYTOMETRY BONE MARROW (09/12/2024 9:00 AM CDT) Case Report Flow Cytometry Case: [id number] Authorizing Provider: Jack Deras Collected: 09/12/2024 09:00 AM MD Aba Ordering Location: [facility] - Received: 09/12/2024 12:41 PM Pathology Lab Pathologist: Duane Ricardo MD Specimen: Bone Marrow 09/12/2024 5:03 PM CDT [facility] Final Diagnosis Bone marrow, flow cytometry: - Slightly increased CD34+ myeloblast population detected (~7% of overall events) 09/12/2024 5:03 PM CDT [facility] at 1703 CDT Flow Cytometry Interpretation Viability: 93% B-cells: polytypic, kappa:lambda ratio 2:1 T-cells: not increased Blasts: detected, 7%, express CD33 (dim), CD117, HLA-DR, and CD7 (dim). CD13 appears negative. The significance of this increased myeloblast population is unclear. Bone marrow histology is pending. A bone marrow aspirate smear prepared from the flow cytometry specimen has been reviewed for design quality engineer purposes. 09/12/2024 5:03 PM CDT [facility] Flow Cytometry Results Differential Result Comment Flow Cell Count /uL 17,100 Total Viability % 93.0 Lymphocytes % 8 Dim CD45 Region % 18 Monocytes % 9 Granulocytes % 65 09/12/2024 5:03 PM CDT [facility] Reason for test Anemia, unspecified 285.9 09/12/2024 5:03 PM T [facility] Client Specimen ID # [id number] 09/12/2024 5:03 PM CDT [facility] Number of markers 19 were performed. A-2 Flow CD10 A-3 Flow CD13 A-5 Flow CD20 A-11 Flow CD2 A-13 Flow CD14 A-16 Flow CD117 A-17 Flow CD11b A-18 Flow CD11c A-1 Flow CD5 A-4 Flow CD19 A-6 Flow CD33 A-7 Flow CD34 A-8 Flow CD45 A-12 Flow CD7 A-14 Flow CD56 A-15 Flow CD64 A-9 [place]+CD19+ A-10 Lambda+CD19+ A-19 Flow HLA-DR 09/12/2024 5:03 PM CDT [facility] Pathologist Location at [facility] 09/12/2024 5:03 PM T [facility] Disclaimer Test performed at [facility], [address] [place] [address], [address]. *The established laboratory minimum viability is 70%. [...] complexity clinical testing. 09/12/2024 5:03 PM CDT [facility] Embedded Images 5:03 PM T [facility] Pathology/Cytolo gy BONE MARROW SPECIMEN / Unknown 09/12/2024 9:00 AM CDT 09/12/2024 12:41 PM CDT Jack Deras MD LAB - PATHOLOGY/CYT OLOGY ORDERABLES Final Result [facility] [address] [place] [address], [place] [address], [facility] [[email or web address]] [phone] from Last 3 Months Insurance [facility] MEDICARE Care Teams Executive Recruiter Relationship Specialty Start Date End Date Vipin Gutierrez MD [address] [place] [address] [address] [place] [address] PCP - General Internal Medicine 07/24/23
--- OUTSIDE RECORDS SUMMARY | 2024-10-31 11:34 | XMS_ITS | Encounter Summary ---
Author Organization [facility] Address [address] [facility] [place] [address] Care Team Providers Care Director Of Securities And Real Estate Name Role Phone Vipin Gutierrez MD Primary Care Provider [phone] Encounter Details Date Type Department Care Team (Late st Contact Info) Description 07/24/2023 Telephone [facility] - Endocrinology [address] [place] [address], [place] [address] Disha Brito MD [address] [place] [address] [place] [address] Social History Tobacco Use Types [...] records had been received. She's coming from [facility] and wants to make sure everythign is in order. Does she need refferal w notes since this was just schedueld? She added after I had typed info, she is being referred by her OBGYN who called office. There is no referring provider on appt. Thanks. Patient Call Back Number: [phone] documented in this encounter Plan of Treatment Not on file documented as of this encounter Visit Diagnoses Not on filedocumented in this encounter Care Teams Director Of Securities And Real Estate Relationship Specialty Start Date End Date Vipin Gutierrez MD [address] [place] [address] PCP - General Internal Medicine 07/24/23 documented as of this encounter
--- OUTSIDE RECORDS SUMMARY | 2024-10-31 11:34 | XMS_ITS | Encounter Summary ---
Author Organization [facility] Address [address] [place] [address] Care Team Providers Care Entry Level Automotive Technician Name Role Phone Vipin Gutierrez MD Primary Care Provider Encounter Details Date Type Department Care Team (Late st Contact Info) Description 09/13/2024 Lab Requisition [facility] - Pathology Lab [address] [place] [phone] Jack Deras MD [address] [place] [address] Illness, unspecified Social History Tobacco Use Types [...] Routine 09/12/2024 9:23 AM CDT Illness, unspecified documented in this encounter Results * BONE MARROW BIOPSY (STL) (09/12/2024 9:23 AM CDT) Case Report Bone Marrow Patholog y Report Case: [id number] Authorizing Provider: Jack Deras Collected: 09/12/2024 09:23 AM MD Aba Ordering Location: [facility] - Received: 09/13/2024 03:31 PM Pathology Lab Pathologist: Aminata Mulligan MD Specimens: A) - Bone Marrow Clot B) - Bone Marrow Core 09/17/2024 3:52 PM [facility] Final Diagnosis Bone marrow, iliac crest, core biopsy, clot section, and aspirate: - Hypercellular bone marrow (50% cellular) with erythroid and megakaryocytic dyspoiesis and hyperplasia (see comment) - No significant reticulin fibrosis (MF-0) - Decreased iron stores 09/17/2024 3:52 PM [facility] at 1552 CDT AP [...] or other reactive processes. 09/17/2024 3:52 PM [facility] Peripheral Smear Description The patient's [...] giant platelets are noted. 09/17/2024 3:52 PM [facility] Bone Marrow Aspirate Differential count [...] stain): no ring sideroblasts. 09/17/2024 3:52 PM [facility] Bone Marrow Core Biopsy and [...] similar to core biopsy. 09/17/2024 3:52 PM [facility] Flow Cytometry Summary Flow cytometry identified slightly increased CD34 positive myeloblasts (approximately 7% of total events), [id number] 09/17/2024 3:52 PM [facility] Clinical History Chronic anemia, vitamin B12 deficiency, IPMN 09/17/2024 3:52 PM [facility] Materials Received Received are 25 slides, 2 unstained slides, and 4 blocks labeled [id number] along with a copy of the outside pathology report. [place] [address]. All original materials are returned to the referring institution, along with a copy of our final report. 09/17/2024 3:52 PM [facility] Microscopic Description Immunohistochemistry and/or special [...] show decreased iron stores. 09/17/2024 3:52 PM [facility] Pathologist Location at [facility] 09/17/2024 3:52 PM [facility] Disclaimer The performance characteristics of all immunohistochemical and indirect immunofluorescence stains (if any) cited in this report were determined by the Histopathology Laboratory of [facility]. Some of these tests were developed by [...] the attending (teaching) pathologist. 09/17/2024 3:52 PM [facility] Embedded Images 09/17/2024 3:52 PM CDT [facility] Pathology/Cytology BONE MARROW SPECIMEN / Unknown 09/12/2024 9:23 AM CDT 09/13/2024 3:31 PM CDT Miscellaneous samples (specimen) BONE MARROW SPECIMEN / Unknown 09/12/2024 9:23 AM CDT 09/13/2024 3:31 PM CDT Jack Deras MD LAB - PATHOLOGY/CYT OLOGY ORDERABLES Final Result [facility] [address] [place] [address], [facility] [phone] documented in this encounter Visit Diagnoses Diagnosis Illness, unspecified documented in this encounter Care Teams Entry Level Automotive Technician Relationship Specialty Start Date End Date Vipin Gutierrez MD [address] [place] [address] PCP - General Internal Medicine 07/24/23 documented as of this encounter
--- OUTSIDE RECORDS SUMMARY | 2024-10-31 11:34 | XMS_ITS | Encounter Summary ---
Author Organization [facility] Address [address] [facility] [place] [address] Care Team Providers Care Telephone Station Repairer Name Role Phone Vipin Gutierrez MD Primary Care Provider Encounter Details Date Type Department Care Team (Late st Contact Info) Description 09/12/2024 Lab Requisition [facility] - Pathology Lab [address] [place] [phone] Jack Deras MD [address] [place] [address] Anemia, unspecified Social History Tobacco Use Types [...] AM CDT) Case Report Flow Cytometry Case: [id number] Authorizing Provider: Jack Deras Collected: 09/12/2024 09:00 AM MD Aba Ordering Location: [facility] - Received: 09/12/2024 12:41 PM Pathology Lab Pathologist: Duane Ricardo MD Specimen: Bone Marrow 09/12/2024 5:03 PM [facility] Final Diagnosis Bone marrow, flow cytometry: - Slightly increased CD34+ myeloblast population detected (~7% of overall events) 09/12/2024 5:03 PM [facility] at 1703 CDT Flow Cytometry Interpretation Viability: 93% B-cells: polytypic, kappa:lambda ratio 2:1 T-cells: not increased Blasts: detected, 7%, express CD33 (dim), CD117, HLA-DR, and CD7 (dim). CD13 appears negative. The significance of this increased myeloblast population is unclear. Bone marrow histology is pending. A bone marrow aspirate smear prepared from the flow cytometry specimen has been reviewed for quality analyst purposes. 09/12/2024 5:03 PM [facility] Flow Cytometry Results Differential Result Comment Flow Cell Count /uL 17,100 Total Viability % 93.0 Lymphocytes % 8 Dim CD45 Region % 18 Monocytes % 9 Granulocytes % 65 09/12/2024 5:03 PM [facility] Reason for test Anemia, unspecified 285.9 09/12/2024 5:03 PM [facility] Client Specimen ID # [id number] 09/12/2024 5:03 PM [facility] Number of markers 19 were performed. A-2 Flow CD10 A-3 Flow CD13 A-5 Flow CD20 A-11 Flow CD2 A-13 Flow CD14 A-16 Flow CD117 A-17 Flow CD11b A-18 Flow CD11c A-1 Flow CD5 A-4 Flow CD19 A-6 Flow CD33 A-7 Flow CD34 A-8 Flow CD45 A-12 Flow CD7 A-14 Flow CD56 A-15 Flow CD64 A-9 [place]+CD19+ A-10 Lambda+CD19+ A-19 Flow HLA-DR 09/12/2024 5:03 PM [facility] Pathologist Location at [facility] 09/12/2024 5:03 PM [facility] Disclaimer Test performed at [facility], [address] [place] [address], [address]. *The established laboratory minimum viability is 70%. [...] OLOGY ORDERABLES Final Result Performing Organization Address City/State/[facility] Co de Phone Number [facility] [address] [phone] documented in this encounter Visit Diagnoses Diagnosis Anemia, unspecified documented in this encounter Care Teams Telephone Station Repairer Relationship Specialty Start Date End Date Vipin Gutierrez MD [facility] [address] [place] [address] PCP - General Internal Medicine 07/24/23 documented as of this encounter
--- OUTSIDE RECORDS SUMMARY | 2024-10-31 11:34 | XMS_ITS | Clinical Summary ---
Author Organization [facility] Emani Lovett Address [address] [place] [address] Care Team Providers Care Net Solutions Architect Name Role Phone Vipin Gutierrez MD Primary Care Provider Allergies Active Allergy Reactions Criticality Noted Date Comments Ciprofloxacin Itching Low 12/21/2021 Phlebitis to veins Medications metFORMIN (GLUCOPHAGE) 1,000 mg tablet 2 Active Farxiga 10 mg Tablet 2 Active simvastatin (ZOCOR) 10 mg tablet 2 Active Contour Next Test [...] B-12, ORAL Take by mouth. Activ e Lantus Solostar U-100 Insulin 100 unit/mL (3 mL) solution for injection Inject 15 Units by subcutaneous injection daily with breakfast. 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 09/07/2021 IPMN (intraductal papillary mucinous neoplasm) 0 09/07/2021 Encounters Date Type Department Care Team Description 10/03/2024 10:30 AM CDT Office Visit [facility] [address] [facility] [address] [place] [address] Mara Vu PA-C IPMN (intraductal papillary mucinous neoplasm) (Primary Dx) 10/02/2024 External Device Data STL ABSTRACTION Provider, Abstract 2024 External Device Data STL ABSTRACTION Provider, Abstract 09/30/2024 Telephone [facility] [address] [facility] [address] [place] [address] Mara Vu PA-C imaging order (MRI - ordered by IDRIS Terry); Appointment Notification 09/24/2024 Telephone [facility] Oncology and Hematology [facility] [address] [place] [address] Bran Pace MD [facility] 09/18/2024 4:30 PM CDT Telephone Check Up [facility] Oncology and [facility] [address] [place] [address] Bran Pace MD Chronic anemia (Primary Dx) 09/18/2024 Orders Only [facility] Oncology and [facility] [address] [place] [address] Bran Pace MD 09/17/2024 8:15 AM CDT - 09/17/2024 11:59 PM CDT Hospital Encounter [facility] [address] [place] [address] [facility], External Provider Discharge Disposition: Home or Self Care 09/10/2024 External Device Data STL ABSTRACTION Provider, Abstract 09/03/2024 External Device Data STL ABSTRACTION Provider, Abstract 08/31/2024 Refill [facility] Oncology and Hematology - [place] [address] [place] [address] Bran Pace MD 08/27/2024 Abstract [facility] Surgical Spec [place] [id number] [facility] [address] [place] [address] Polly Marinelli RN 08/13/2024 11:00 AM CDT Office Visit [facility] Oncology and Hematology - [place] [address] [place] [address] Bran Pace MD Chronic anemia (Primary Dx) 08/13/2024 External Device Data STL ABSTRACTION Provider, Abstract 08/13/2024 Orders Only [facility] Oncology and Hematology - [place] [address] [place] [address] Bran Pace MD 08/08/2024 External Device Data STL ABSTRACTION Provider, Abstract 08/07/2024 External Device Data STL ABSTRACTION Provider, Abstract 08/06/2024 External Device Data STL ABSTRACTION Provider, Abstract 08/02/2024 Refill [facility] Oncology and Hematology - [place] [address] [place] [address] Bran Pace MD from Last 3 Months [...] Sign Reading Time Taken Comments Blood Pressure 99/56 10/03/2024 10:24 AM CDT Pulse 77 10/03/2024 10:24 AM CDT Temperature 36.5 C (97.7 F) 10/03/2024 10:24 AM CDT Respiratory Rate 15 08/13/2024 11:03 AM CDT Oxygen Saturation 96% 10/03/2024 10:24 AM CDT Inhaled Oxygen Concentration - - Weight 47.3 kg (104 lb 3.2 oz) 10/03/2024 10:24 AM CDT Height 162.6 cm (5' 4) 10/03/2024 10:24 AM CDT Body Mass Index 17.89 10/03/2024 10:24 AM CDT Plan of Treatment Upcoming Encounters Date Type Department Care Team (Late st Contact Info) Description 11/04/2024 10:00 AM CDT Office Visit [facility] Oncology and Hematology - [place] [address] [facility] [address] [place] [address] Bran Pace MD [address] [facility] [address] [place] [address] Health Maintenance Due Date Last Done Comments DTAP/TDAP/TD VACCINES (1 - Tdap) 10/02/1967 PNEUMOCOCCAL VACCINE 50+ YEARS (1 of 1 - PCV) 10/01/18 99 ZOSTER VACCINE (1 of 2) 1998 OSTEOPOROSIS SCREENING 2013 RSV VACCINE (60+ or ) (1 - 1-dose 75+ series) 10/02/2023 Medicare Advantage ([place]) Prev entative Visit/Annual Wellness Visit 03/20/2024 INFLUENZA VACCINE (#1) 2024 Procedures Procedure Name Priority Date/Time Associated Diagnosis Comments MRI PRIOR STUDY Routine 09/17/2024 8:15 AM CDT Encounter for administrative examinations, unspecified BONE MARROW ASPIRATION & BIOPSY Routine 09/12/2024 12:41 PM CDT COMPREHENSIVE METABOLIC PANEL Routine 08/09/2024 10:38 AM CDT from Last 3 Months Results * MRI PRIOR STUDY (09/17/2024 8:15 AM CDT) Narrative 2024 8:11 AM CDT This exam was auto finalized to allow images to be scanned to PACS. us External Provider [facility] MR ORDERABLES Final Res ult * BONE MARROW ASPIRATION AND BIOPSY (09/12/2024 12:41 PM CDT) Bone marrow Bran Pace MD PATH/CYTO ORDERABLES COM Final Result * COMPREHENSIVE METABOLIC PANEL (08/09/2024 10:38 AM CDT) Blood Bran Pace MD CHEMISTRY ORDERABLES Final Resu lt from Last 3 Months Insurance Member Subscriber Plan / Payer ( fective 2021-Present) Name:Dara Hayes Relation to Subscriber:Self Name:Dara Hayes Payer ID:[id number] (NAIC) Type:Optics 1O Address: [place] [id number] Member Subscriber Plan / Payer (Ef fective 2021-Present) Name:Dara Hayes Relation to Subscriber:Self Name:Dara Hayes Payer ID:[id number] (NAIC) Type:Optics 1O Address: [place] [id number] Care Teams Net Solutions Architect Relationship Specialty Start Date End Date Vipin Gutierrez MD [address] [place] [address] PCP - General Internal Medicine 09/07/21
--- OUTSIDE RECORDS SUMMARY | 2024-10-31 11:34 | XMS_ITS | Continuity of Care Document ---
Author Organization [facility] Address [address] [place] [address] [address] [place] [address] Phone Care Team Providers Care Front Edger Name Role Phone John Calhoun DO Unavailable Unavailable Advance Directives Directive Yes / No Effective Date File Name No Information Encounters Encounter Description Practice Location Reason(s) For Visit Diagnoses Date Provider Providers [facility] [address] [place] [address] [address], [place], [place], [id number], [place] tel:[phone] [facility] No Information [facility] [place] [address] [place], [address], [place]. tel: [phone] Family History Family Member Type Diagnosis Age At Onset No Information Payers Payer name Insurance type Covered democrat ID Authoriza tion(s) No Information Social History [...]
[2024-10-31 11:42] LABS: Schistocytes None Seen
[2024-10-31 11:45] LABS: Anisocytosis 1+; Ovalocytes 1+
[2024-10-31 12:39] LABS: Anion Gap 10 mmol/L (4-12); Blood Urea Nitrogen 13 mg/dL (7-17); Calcium 9.9 mg/dL (8.4-10.2); Carbon Dioxide 26 mmol/L (22-30); Chloride 104 mmol/L (98-107); Estimated Glomerular Filt Rate > 60; Glucose 179 mg/dL (65-110); Potassium 4.7 mmol/L (3.4-5.0); Sodium 140 mmol/L (137-145)
== END 2024-10-31 11:17 | disposition home or self-care (01) ==
PROVIDERS: PCP Emergency Medicine; Visit Provider Internal Medicine Hematology & Oncology
DX: D64.9 Anemia, unspecified (principal)
CPT/HCPCS: 36415; 80048; 82668; 85025

== ENCOUNTER 2025-02-26 09:54 | Outpatient (CLI) | payer OTHER, SELFPAY ==
[2025-02-26 10:10] LABS: Hematocrit 32.6 % (37.0-47.0); Hemoglobin 10.4 g/dL (12.0-15.0); Immature Granulocyte Percent A 0.8 % (0-0.5); Lymphocytes Absolute Auto 0.81 K/mm3 (0.9-3.2); Mean Corpuscular HGB Conc 31.9 g/dl (32-36); Mean Corpuscular Hemoglobin 35.4 pg (26-34); Mean Corpuscular Volume 110.9 fl (80-100); Nucleated Red Blood Cells Absolute Auto 0.000 K/mm3 (0.0-0.012); Nucleated Red Blood Cells Perc 0.0 % (0.0-0.2); Platelet Count Result 343 k/mm3 (150-375); Red Blood Count 2.94 M/mm3 (4.2-5.4); White Blood Count 4.7 K/mm3 (4.5-10.0)
[2025-02-26 10:13] LABS: Schistocytes None Seen
[2025-02-26 10:17] LABS: Anisocytosis 2+; Macrocytosis 1+ (NORMAL); Ovalocytes 1+
[2025-02-26 10:55] LABS: Anion Gap 5 mmol/L (4-12); Blood Urea Nitrogen 18 mg/dL (7-17); Calcium 9.7 mg/dL (8.4-10.2); Carbon Dioxide 26 mmol/L (22-30); Chloride 108 mmol/L (98-107); Estimated Glomerular Filt Rate > 60; Glucose 119 mg/dL (65-110); Potassium 4.6 mmol/L (3.4-5.0); Sodium 139 mmol/L (137-145)
== END 2025-02-26 09:55 | disposition home or self-care (01) ==
LOC: ANHLAB 09:54
PROVIDERS: PCP Emergency Medicine; Visit Provider Internal Medicine Hematology & Oncology
DX: D64.9 Anemia, unspecified (principal)
CPT/HCPCS: 36415; 80048; 85025